=== PATIENT | female | born 1945 | race Caucasian/White ===

== ENCOUNTER 2017-04-29 13:35 | Inpatient (IN) | payer MEDICARE, MEDICAID ==
[~2017-04-29] VITALS: Ht 142.2 cm; Wt 85.7 kg
[2017-04-29] VITALS (7 sets, daily range): BP systolic 137–177; BP diastolic 44–88
--- NOTE | ~2017-04-29 | CON ---
[place], [place] REPORT OF CONSULTATION NAME: HALINA CORTES UNIT #: [id number] ROOM: 415 DOCTOR: GHADA BARBOZAMANASGIOVANNY BIRTHDATE: [birth year] DOS: 04/30/2017 REQUESTING PHYSICIAN: Dr. Bazzi. REASON FOR CONSULTATION: Atrial fibrillation. ASSESSMENT: 1. Current presentation with shortness of breath. 2. New-onset paroxysmal atrial fibrillation. 3. Evidence of right lower lobe pneumonia. 4. Sepsis, elevated white count. 5. Morbid obesity with probable obstructive sleep apnea. 6. Hypertension. 7. Hyperlipidemia. 8. Diabetes. 9. History of coronary artery disease, status post PTCA stent placement in 2009 at [facility]. 10. The patient with dementia/Alzheimer, most of the history was taken from her daughter, Denise (the patient's granddaughter was also present at the time of this exam). 11. History of severe chronic obstructive pulmonary disease with the patient is oxygen dependent. 12. Active tobacco abuse. PLAN: 1. Cycle cardiac enzymes. 2. Check thyroid function test. 3. Echocardiogram. 4. Sop Plavix and initiate Xarelto. 5. Stop Lovenox. 6. Cardizem-CD 120 mg 1 tablet p.o. b.i.d. 7. Multaq 400 mg 1 tab p.o. b.i.d. 8. Ischemic evaluation will be considered later on as an outpatient. 9. Consider sleep study. 10. Smoking cessation. HISTORY AND PHYSICAL: The patient is a pleasant 71-year-old female, unknown to our practice, was referred by Dr. Bazzi for evaluation of shortness of breath, cough, fever, and chills. On presentation, the patient was found out to have a right lower lobe pneumonia, initiated for treatment with antibiotic. The patient according to her daughter who is an [employer] was noticed that she was going back and forth in atrial fibrillation and this was documented today on the monitor. Never had any symptomatic palpitation or any associated dizziness, lightheadedness, or near syncope. The patient is demented with Alzheimer, with no reliability for her complaints, even though it was never reported such as. The patient is almost completely bedridden. She is morbidly obese, with COPD and oxygen dependent. There is no complaint of chest pain, chest pressure, heaviness or tightness. Her functional capacity is extremely limited. There is no evidence of volume overload. No fever, no chills, no night sweats were reported. Decreased appetite, cough, slightly productive of yellowish sputum. [place], [place] REPORT OF CONSULTATION NAME: HALINA CORTES UNIT #: [id number] ROOM: [facility] DOCTOR: KELLY URRUTIA MD BIRTHDATE: [birth year] No significant weight change recently. PAST MEDICAL HISTORY: As detailed in my assessment. SOCIAL HISTORY: The patient continued to smoke, has been doing this since her teenage years. No current alcohol or illicit drug abuse. FAMILY HISTORY: Not applicable in view of patient's age. CURRENT MEDICATIONS: Levo, Cardizem drip, insulin, vitamin D, nitrofurantoin, Lisinopril, Victoza, Lovenox, Plavix, Celexa, Lipitor, Glucophage, Protonix, Aricept, Os-Tony, DuoNeb, Restoril, Zofran, magnesium, [place]. ALLERGIES: The patient is allergic to SULFA. REVIEW OF SYSTEMS: Done in the presence of the patient's daughter and granddaughter. There is no current fever, chills, no night sweats. No abdominal pain, no bright blood per rectum or tarry stools. Present joint pain and muscular pain. No anxiety, no depression. No polyuria, no polydipsia, no skin rash. Review of all other systems has been negative. PHYSICAL EXAMINATION: GENERAL: The patient is alert, oriented, sitting up in a recliner chair, does not appear in distress, slightly tachypneic, coughs off and on. VITAL SIGNS: Blood pressure 121/52, heart rate 58, respiration rate of 20, temperature 97.5. HEENT: Extraocular muscles intact. Pupils equal, round, reactive to light. Conjunctivae mild pallor. Throat: No petechiae. NECK: Good upstroke. Unable to appreciate any bruit, no lymphadenopathy, no thyromegaly. HEART: S1, S2 with holosystolic murmur in the left upper sternal border. No rub, no sternal heave. CHEST AND BACK: Significant decrease in air movement with decreased breath sounds at the base bilaterally, more so on the left than the right. Minimal rhonchi could be heard also in the left lower base. No natacha wheezing. ABDOMEN: Soft, slight periumbilical tenderness. No rebound, no masses, no bruits were appreciated. LOWER EXTREMITIES: There is no edema. Faint distal pulses. NEUROLOGIC: Grossly nonfocal. SKIN: No significant rash. LABORATORY DATA: White count 13.1, 89% neutrophils, hemoglobin 12.0. Potassium 3.9. GFR more than 60%. Normal liver function tests. Troponin is 0.041 and 0.043. Slightly decreased TSH to 0.351 and normal free T4. [place], [place] REPORT OF CONSULTATION NAME: HALINA CORTES UNIT #: [id number] ROOM: 415 DOCTOR: KELLY URRUTIA MD BIRTHDATE: [birth year] KELLY URRUTIA MD CM:CONSTR:REPORT OF CONSULTATION 1200 04/30/17 1357 interface
--- NOTE | ~2017-04-29 | PR ---
[place], [place] PROGRESS NOTE [id number] UNIT #: [id number] ROOM: 415 DOCTOR: KELLY URRUTIA MD BIRTHDATE: [birth year] DOS: 05/01/2017 SUBJECTIVE: The patient is sitting up in bed, almost completely flat. Does not appear in any distress. No chest pain. No symptomatic palpitation. OBJECTIVE: VITAL SIGNS: Blood pressure 143/48, heart rate 93, respiratory rate of 20, temperature 98.2. NECK: Good upstroke, no bruit. HEART: S1, S2 with no rub. LUNGS: Significant decreased air movement, but no natacha wheezing or rales. ABDOMEN: Morbidly obese, soft, nontender, present bowel sounds. EXTREMITIES: Lower extremities, no edema. LABORATORY DATA: White count 18.2, 20% lymphocytes, hemoglobin 11.4. Potassium 3.9, glucose 268. GFR more than 60%. Normal liver function tests. TSH 0.351. ASSESSMENT AND PLAN: Presentation with shortness of breath, dyspnea on exertion with evidence of paroxysmal atrial fibrillation. The patient is showing some element of profound bradycardia for that we will decrease Cardizem CD to 120 mg once a day. For now, we will continue Multaq and Xarelto. The patient from the Cardiology, can be discharged home with early followup in our clinic within 2-4 weeks. We will consider ischemic workup as an outpatient. The patient though is elderly, frail with advanced dementia and possible Alzheimer, for that a conservative management will be preferred. KELLY URRUTIA MD CM:PNTRANS [id number] KELLY URRUTIA MD 05/02/17 0319 interface
[~2017-04-29 13:35] MED LIST: ASPIR-TRIN325 MG PO; ATIVAN0.5 MG PO; CELEBREX200 MG PO; CIPROFLOXACIN500 MG PO; CITALOPRAM40 MG PO; CLOPIDOGREL BIS75 MG PO; DARVOCET N 1001 TAB PO; DAYPRO600 M1 PO; LASIX40 MG PO; LISINOPRIL/HCTZ1 TA4 PO; LISINOPRIL5 MG PO; Oscal,Oyster S500 MG PO; SIMVASTATIN40 MG PO; SINGULAIR10 MG PO; SYMBICORT1 AE1 IH; TUSSIN100 MG/5 M; VICODIN 500 MG-1 TAB PO; VITAMIN D31000 UNIT PO; ZOVIRAX800 MG PO
[2017-04-29 14:45] LABS: HEMATOCRIT 41.6 % (37.0-47.0); HEMOGLOBIN 13.1 g/dl (12.0-16.0); MEAN CELL VOLUME 87.6 fl (81.0-99.0); MEAN CORPUSCULAR HGB 27.6 pg (27.0-31.0); MEAN CORPUSCULAR HGB CONC 31.5 g/dl (33.0-37.0); MEAN PLATELET VOLUME 10.1 fl (9.6-12.3); PLATELET COUNT AUTOMATED 273 10*3/uL (130-400); RED BLOOD COUNT 4.75 10*6/uL (4.10-5.10); RED CELL DISTRI WIDTH 13.2 % (0-14.5); WHITE BLOOD COUNT 18.8 10*3/uL (4.8-10.8)
[2017-04-29 15:02] LABS: ALBUMIN 2.8 gm/dl (3.1-4.5); ALKALINE PHOSPHATASE 97 U/L (45-117); BILIRUBIN, TOTAL 0.4 mg/dl (0.2-1.0); BUN 18 mg/dl (7-24); CARBON DIOXIDE 30 mmol/L (21-32); CHLORIDE 99 mmol/L (98-107); CPK 161 U/L (26-192); EST GLOM FILT AFRICAN AMERICAN > 60 ml/min; GLUCOSE 149 mg/dL (65-99); LDH 154 U/L (84-246); MAGNESIUM 1.7 mg/dL (1.5-2.1); POTASSIUM 3.9 mmol/L (3.5-5.1); SGOT/AST 17 IU/L (3-35); SGPT/ALT 17 U/L (12-78); SODIUM 138 mmol/L (136-145); TOTAL PROTEIN 6.9 gm/dL (6.4-8.2)
[2017-04-29 15:03] LABS: CKMB 2.6 ng/ml (0.5-3.6)
[2017-04-29 15:07] LABS: LYMPHOCYTE # 3.4 10*3/uL (1.3-4.4); MONOCYTE # 2.1 10*3/uL (0.1-1.0); NEUTROPHIL # 13.3 10*3/uL (2.3-7.9); NEUTROPHILS 71 % (47-73); PLATELET SUFFICIENCY NORMAL (NORMAL); POLYCHROMASIA SLIGHT; TOTAL CELLS COUNTED 100 #CELLS
[2017-04-29] MEDS ORDERED: MACRODANTIN50 MG PO (17:20)
[2017-04-29] MEDS ORDERED: METFORMIN500 MG PO (17:21)
[2017-04-29] MEDS ORDERED: ARICEPT10 M1 PO (17:23)
[2017-04-29] MEDS ORDERED: BREO ELLIPTA 11 EACH INH (17:24)
[2017-04-29] MEDS ORDERED: ATORVASTATIN CA10 M1 PO (17:25)
[2017-04-29] MEDS ORDERED: ALBUTEROL S5 MG/1 ML INH (17:26)
[2017-04-29] MEDS ORDERED: PRINIVIL10 MG PO (17:27)
[2017-04-29] MEDS ORDERED: VICTOZA 3-PAK6 MG/ML SQ (17:27)
[2017-04-29] MEDS ORDERED: MAPAP EXTRA ST500 MG PO (17:28)
[2017-04-30] VITALS (7 sets, daily range): BP systolic 121–149; BP diastolic 49–74
[2017-04-30 05:51] LABS: BASO % 0.2 % (0.0-1.0); IG # 0.1 10*3/uL (0.0-0.1); LYMPH # 0.9 10*3/uL (1.3-4.4); LYMPH % 6.6 % (27.0-41.0); MEAN CELL VOLUME 88.2 fl (81.0-99.0); MEAN CORPUSCULAR HGB 27.8 pg (27.0-31.0); MEAN CORPUSCULAR HGB CONC 31.6 g/dl (33.0-37.0); MEAN PLATELET VOLUME 10.5 fl (9.6-12.3); MONO # 0.4 10*3/uL (0.1-1.0); MONO % 3.1 % (3.0-9.0); NEUT # 11.7 10*3/uL (2.3-7.9); NEUT % 89.6 % (47.0-73.0); PLATELET COUNT AUTOMATED 262 10*3/uL (130-400); RED BLOOD COUNT 4.31 10*6/uL (4.10-5.10); RED CELL DISTRI WIDTH 13.2 % (0-14.5); WHITE BLOOD COUNT 13.1 10*3/uL (4.8-10.8)
[2017-04-30 05:55] LABS: ALBUMIN 2.4 gm/dl (3.1-4.5); BILIRUBIN, TOTAL 0.2 mg/dl (0.2-1.0); BUN 23 mg/dl (7-24); CARBON DIOXIDE 27 mmol/L (21-32); CHLORIDE 103 mmol/L (98-107); GLUCOSE 268 mg/dL (65-99); MAGNESIUM 1.9 mg/dL (1.5-2.1); POTASSIUM 3.9 mmol/L (3.5-5.1); SODIUM 139 mmol/L (136-145); TOTAL PROTEIN 6.4 gm/dL (6.4-8.2)
[2017-04-30 06:02] LABS: ALKALINE PHOSPHATASE 92 U/L (45-117); EST GLOM FILT AFRICAN AMERICAN > 60 ml/min; FREE T4 1.33 ng/dl (0.76-1.46); PHOSPHOROUS 2.5 mg/dL (2.5-4.9); SGOT/AST 16 IU/L (3-35); SGPT/ALT 15 U/L (12-78); THYROID STIM HORMONE (HS) 0.351 uIU/ml (0.358-4.75)
[2017-04-30 06:21] LABS: PROTHROMBIN TIME 10.9 SECONDS (9.0-12.4)
[2017-04-30 13:05] LABS: VITAMIN D, 25-HYDROXY 46.9 ng/mL (30-100)
[2017-04-30 13:06] LABS: FOLIC ACID 6.92 ng/mL (>5.38)
[2017-04-30 14:26] LABS: BILIRUBIN NEGATIVE (NEGATIVE); BLOOD NEGATIVE (NEGATIVE); CLARITY CLEAR (CLEAR); COLOR YELLOW (YELLOW); GLUCOSE NEGATIVE (NEGATIVE); KETONE NEGATIVE (NEGATIVE); LEUKO ESTERASE NEGATIVE (NEGATIVE); NITRITE NEGATIVE (NEGATIVE); PROTEIN 1+ (NEGATIVE); SPECIFIC GRAVITY >= 1.030 (1.005-1.030)
[2017-04-30 14:44] LABS: BACTERIA 1+
[2017-04-30 14:45] LABS: URINE REFLEX COMMENT NO (NO)
[2017-05-01] VITALS: BP 131/64
[2017-05-01 06:12] LABS: HEMATOCRIT 37.5 % (37.0-47.0); HEMOGLOBIN 11.4 g/dl (12.0-16.0); MEAN CELL VOLUME 90.6 fl (81.0-99.0); MEAN CORPUSCULAR HGB 27.5 pg (27.0-31.0); MEAN CORPUSCULAR HGB CONC 30.4 g/dl (33.0-37.0); MEAN PLATELET VOLUME 10.2 fl (9.6-12.3); PLATELET COUNT AUTOMATED 295 10*3/uL (130-400); RED BLOOD COUNT 4.14 10*6/uL (4.10-5.10); RED CELL DISTRI WIDTH 13.5 % (0-14.5); WHITE BLOOD COUNT 18.2 10*3/uL (4.8-10.8)
[2017-05-01 06:38] LABS: LYMPHOCYTE # 3.6 10*3/uL (1.3-4.4); MONOCYTE # 1.1 10*3/uL (0.1-1.0); NEUTROPHIL # 13.5 10*3/uL (2.3-7.9); NEUTROPHILS 74 % (47-73); PLATELET SUFFICIENCY NORMAL (NORMAL); TOTAL CELLS COUNTED 100 #CELLS
[2017-05-01 08:00] VITALS: BP 143/48
[2017-05-01 12:00] VITALS: BP 154/64
[2017-05-01] MEDS ORDERED: LEVAQUIN750 M1 PO (12:15)
[2017-05-01] MEDS ORDERED: CARDIZEM CD120 M2 PO (12:15)
[2017-05-01] MEDS ORDERED: MULTAQ400 MG PO (12:15)
[2017-05-01] MEDS ORDERED: XARE20MG PO (12:15)
[2017-05-01] MEDS ORDERED: PREDNISONE50 MG PO (12:15)
[2017-05-03 18:05] LABS: ORGANISM ID Not indicated. (.); SPECIMEN SOURCE Urine (.); STREPTOCOCCUS PNEUMONIAE AG Negative (Negative)
== END 2017-05-01 14:31 | disposition home health service (06) | DRG 871 ==
LOC: ED 13:35 → 4E 16:00 → EDHOLD 16:00 → 4E 17:00
PROVIDERS: Internal Medicine Hospice and Palliative Medicine; Physician Assistant; Student in an Organized Health Care Education/Training Program
DX: A41.9 Sepsis, unspecified organism (principal); E43 Unspecified severe protein-calorie malnutrition; J18.1 Lobar pneumonia, unspecified organism; E11.65 Type 2 diabetes mellitus with hyperglycemia; D68.69 Other thrombophilia; J96.11 Chronic respiratory failure with hypoxia; J44.0 Chronic obstructive pulmonary disease with (acute) lower respiratory infection; N39.0 Urinary tract infection, site not specified; Z68.41 Body mass index [BMI] 40.0-44.9, adult; G30.9 Alzheimer's disease, unspecified; F02.80 Dementia in other diseases classified elsewhere, unspecified severity, without behavioral disturbance, psychotic disturbance, mood disturbance, and anxiety; R65.20 Severe sepsis without septic shock; I10 Essential (primary) hypertension; G47.33 Obstructive sleep apnea (adult) (pediatric); F41.9 Anxiety disorder, unspecified; I25.10 Atherosclerotic heart disease of native coronary artery without angina pectoris; E66.01 Morbid (severe) obesity due to excess calories; E78.5 Hyperlipidemia, unspecified; I48.0 Paroxysmal atrial fibrillation; F17.210 Nicotine dependence, cigarettes, uncomplicated; F32.9 Major depressive disorder, single episode, unspecified; R00.1 Bradycardia, unspecified; Z99.81 Dependence on supplemental oxygen; Z71.6 Tobacco abuse counseling; Z95.5 Presence of coronary angioplasty implant and graft; Z74.01 Bed confinement status; Z90.49 Acquired absence of other specified parts of digestive tract; Z88.2 Allergy status to sulfonamides; Z91.018 Allergy to other foods; Z82.49 Family history of ischemic heart disease and other diseases of the circulatory system; Z83.3 Family history of diabetes mellitus; Z82.3 Family history of stroke; Z80.3 Family history of malignant neoplasm of breast

== ENCOUNTER 2017-05-12 13:25 | Inpatient (IN) | payer MEDICARE, MEDICAID ==
[~2017-05-12] VITALS: Ht 121.9 cm; Wt 78.2 kg
[2017-05-12 13:25] VITALS: BP 113/51
[~2017-05-12 13:25] MED LIST changes: +ALBUTEROL S5 MG/1 ML INH; +ARICEPT10 M1 PO; +ATORVASTATIN CA10 M1 PO; +BREO ELLIPTA 11 EACH INH; +CARDIZEM CD120 M2 PO; +LEVAQUIN750 M1 PO; +MACRODANTIN50 MG PO; +MAPAP EXTRA ST500 MG PO; +METFORMIN500 MG PO; +MULTAQ400 MG PO; +PREDNISONE50 MG PO; +PRINIVIL10 MG PO; +VICTOZA 3-PAK6 MG/ML SQ; +XARE20MG PO
[2017-05-12 14:13] VITALS: BP 131/63
[2017-05-12 14:50] LABS: BASO % 0.2 % (0.0-1.0); EOS # 0.3 10*3/uL (0.0-0.4); EOS % 1.5 % (1.0-4.0); HEMATOCRIT 42.1 % (37.0-47.0); HEMOGLOBIN 13.1 g/dl (12.0-16.0); LYMPH # 3.6 10*3/uL (1.3-4.4); LYMPH % 20.4 % (27.0-41.0); MEAN CELL VOLUME 89.4 fl (81.0-99.0); MEAN CORPUSCULAR HGB 27.8 pg (27.0-31.0); MEAN CORPUSCULAR HGB CONC 31.1 g/dl (33.0-37.0); MEAN PLATELET VOLUME 9.5 fl (9.6-12.3); MONO # 1.2 10*3/uL (0.1-1.0); MONO % 7.1 % (3.0-9.0); NEUT # 12.2 10*3/uL (2.3-7.9); NEUT % 69.8 % (47.0-73.0); PLATELET COUNT AUTOMATED 303 10*3/uL (130-400); RED BLOOD COUNT 4.71 10*6/uL (4.10-5.10); RED CELL DISTRI WIDTH 14.4 % (0-14.5); WHITE BLOOD COUNT 17.4 10*3/uL (4.8-10.8)
[2017-05-12 15:00] LABS: ACT PARTIAL THROMBO TIME 30.3 SECONDS (20.8-31.5); INTERNATIONAL NORM RATIO 1.1 (2.0-3.5)
[2017-05-12 15:08] LABS: ALBUMIN 2.8 gm/dl (3.1-4.5); CREATININE 1.11 mg/dL (0.55-1.02); MAGNESIUM 2.2 mg/dL (1.5-2.1); POTASSIUM 4.8 mmol/L (3.5-5.1); TOTAL PROTEIN 5.9 gm/dL (6.4-8.2)
--- NOTE | 2017-05-12 15:09 | NUR ---
TO XRAY NOW FOR ULTRASOUND OF LEGS. REMAINS ALERT. OSKAR WILKINS
--- NOTE | 2017-05-12 15:44 | NUR ---
REPORT FROM ABIMAEL DURHAM RN AT THIS TIME.
--- NOTE | 2017-05-12 15:44 | NUR ---
PATIENT RETURNING FROM US AT THIS TIME.
[2017-05-12 17:32] VITALS: BP 132/42; BP 132/60
--- NOTE | 2017-05-12 17:34 | NUR ---
HERMINIO WILKINS TRANSPORTED PATIENT TO 4TH FLOOR AT THIS TIME.
[2017-05-12 17:50] VITALS: BP 164/62
--- NOTE | 2017-05-12 17:50 | NUR ---
A 71, admitted to , under the services of PATRICK Nelson DO with a diagnosis of BRADYCARDIA,RIGHT SIDED HEART FAILURE. Chief complaint is BLE EDEMA. Patient arrived via CART from ER. Monitor applied. Initial assessment completed. Vital signs taken and recorded. PATRICK NELSON DO notified of admission to the unit. Orders received. See assessment for past medical history, medications and allergies. Patient and/or family oriented to unit. [facility] visitation policy reviewed. Clothing/patient valuable form completed. RYAN YAN
[2017-05-12 18:00] VITALS: BP 164/62
--- NOTE | 2017-05-12 19:39 | NUR ---
NOTIFIED DR [facility] ANSWERING SERVICE OF NEW CONSULT FOR BRADYCARDIA AND RIGHT SIDED HEART FAILURE.
--- NOTE | 2017-05-12 19:46 | NUR ---
MED RECONCILIATION COMPLETE WITH MED LIST. MED LIST ON CHART.
[2017-05-12 20:00] VITALS: BP 162/59
[2017-05-13] VITALS: BP 129/83
--- NOTE | 2017-05-13 00:58 | NUR ---
PATIENT RESTING IN BED WITH EYES CLOSED. RESPS EASY AND REGULAR. DAUGHTER IN CHAIR AT BEDSIDE. BED IN LOWEST POSITION, BED ALARM ON, CALL LIGHT IN REACH
--- NOTE | 2017-05-13 02:54 | NUR ---
24 HR chart check completed.
[2017-05-13 06:59] LABS: HEMATOCRIT 40.2 % (37.0-47.0); HEMOGLOBIN 12.3 g/dl (12.0-16.0); MEAN CELL VOLUME 89.1 fl (81.0-99.0); MEAN CORPUSCULAR HGB 27.3 pg (27.0-31.0); MEAN CORPUSCULAR HGB CONC 30.6 g/dl (33.0-37.0); MEAN PLATELET VOLUME 9.5 fl (9.6-12.3); PLATELET COUNT AUTOMATED 287 10*3/uL (130-400); RED BLOOD COUNT 4.51 10*6/uL (4.10-5.10); RED CELL DISTRI WIDTH 14.3 % (0-14.5); WHITE BLOOD COUNT 11.3 10*3/uL (4.8-10.8)
[2017-05-13 07:28] LABS: ALBUMIN 2.7 gm/dl (3.1-4.5); ALKALINE PHOSPHATASE 68 U/L (45-117); CHLORIDE 103 mmol/L (98-107); CREATININE 0.93 mg/dL (0.55-1.02); MAGNESIUM 2.1 mg/dL (1.5-2.1); PHOSPHOROUS 2.8 mg/dL (2.5-4.9); PLATELET SUFFICIENCY NORMAL (NORMAL); POTASSIUM 4.9 mmol/L (3.5-5.1); SGOT/AST 14 IU/L (3-35); SGPT/ALT 18 U/L (12-78); SODIUM 141 mmol/L (136-145); TOTAL CELLS COUNTED 100 #CELLS; TOTAL PROTEIN 5.7 gm/dL (6.4-8.2)
[2017-05-13 07:31] LABS: ACT PARTIAL THROMBO TIME 35.5 SECONDS (20.8-31.5); INTERNATIONAL NORM RATIO 1.3 (2.0-3.5)
[2017-05-13 07:35] LABS: BUN 14 mg/dl (7-24); THYROID STIM HORMONE (HS) 0.472 uIU/ml (0.358-4.75)
[2017-05-13 08:00] VITALS: BP 136/72
[2017-05-13 08:09] LABS: VITAMIN D, 25-HYDROXY 61.1 ng/mL (30-100)
--- NOTE | 2017-05-13 09:14 | NUR ---
Advance Directive information given to patient. Daughter would like to review information and will get back to this social media developer.
--- NOTE | 2017-05-13 10:36 | NUR ---
PHYSICAL THERAPY PAtient requests PT at a later time or date. Thank you for this referral. Ayanna Overton,PT
[2017-05-13 12:00] VITALS: BP 102/83
--- NOTE | 2017-05-13 12:22 | NUR ---
PHYSICAL THERAPY PAtient evaluated on 4, full evaluation to follow. Continue with PT as per plan of care with fall, 02 and acute debility precautions. Home with 12/04 family assit as prior and home health RN, aides and PT prn. PAtient is moderate complexity via chart review, tests and evaluation: 41991. Thank you for this freferral. karen Overton,PT
[2017-05-13 16:00] VITALS: BP 118/46
[2017-05-13 20:00] VITALS: BP 120/55
[2017-05-14] VITALS: BP 135/50
--- NOTE | 2017-05-14 01:00 | NUR ---
24 HR chart check completed.
[2017-05-14 07:30] LABS: HEMATOCRIT 35.9 % (37.0-47.0); HEMOGLOBIN 11.2 g/dl (12.0-16.0); MEAN CELL VOLUME 89.3 fl (81.0-99.0); MEAN CORPUSCULAR HGB 27.9 pg (27.0-31.0); MEAN CORPUSCULAR HGB CONC 31.2 g/dl (33.0-37.0); MEAN PLATELET VOLUME 9.7 fl (9.6-12.3); PLATELET COUNT AUTOMATED 254 10*3/uL (130-400); RED BLOOD COUNT 4.02 10*6/uL (4.10-5.10); RED CELL DISTRI WIDTH 14.6 % (0-14.5); WHITE BLOOD COUNT 20.3 10*3/uL (4.8-10.8)
[2017-05-14 07:55] LABS: BUN 20 mg/dl (7-24); CHLORIDE 99 mmol/L (98-107); CREATININE 0.98 mg/dL (0.55-1.02); PLATELET SUFFICIENCY NORMAL (NORMAL); SODIUM 138 mmol/L (136-145); TOTAL CELLS COUNTED 100 #CELLS
[2017-05-14 08:00] VITALS: BP 102/60
--- NOTE | 2017-05-14 10:13 | NUR ---
PHYSICAL THERAPY Pt was seen this AM 1:1 for her therapy gait. Transfer supine/sit, sitting balance supervision X 1, sit/stand and standing balance with wheeled walker MIN A X 1. Then gait with W/W, portable o2 at 3 L, 165' X 1, CGA X 1, no LOB, did not get SOB with this gait and up in her chair for breakfast. LUNA HUGHES EVENT MGR.
[2017-05-14] MEDS ORDERED: KLOR-CON M1010 ME1 PO (10:14)
[2017-05-14] MEDS ORDERED: METOPROLOL SUCC25 M2 PO (10:14)
[2017-05-14] MEDS ORDERED: DOXYCYCLINE100 M3 PO (10:14)
[2017-05-14] MEDS ORDERED: LASIX20 MG PO (10:14)
[2017-05-14] MEDS ORDERED: PREDNISONE10 MG PO (10:14)
--- NOTE | 2017-05-14 13:20 | NUR ---
DISCHARGED HOMEAFTER INSTRUCTIONS GIVEN
--- NOTE | 2017-05-14 14:16 | NUR ---
Patient discharged to home to resume [facility]. Contacted Dr. Murali Martinez and requested resume order, faxed clincals.
--- NOTE | 2017-05-17 08:10 | NUR ---
PHYSICAL THERAPY CO-SIGN I approve of the Phyical Therapy notes written above. MICHAEL LEDESMA PT
== END 2017-05-14 13:20 | disposition home health service (06) | DRG 291 ==
LOC: ED 13:25 → EDHOLD 16:56 → 4E 16:56
PROVIDERS: Emergency Medicine; Internal Medicine; ADMIT Internal Medicine
DX: I13.0 Hypertensive heart and chronic kidney disease with heart failure and stage 1 through stage 4 chronic kidney disease, or unspecified chronic kidney disease (principal); G93.40 Encephalopathy, unspecified; J96.11 Chronic respiratory failure with hypoxia; E44.0 Moderate protein-calorie malnutrition; J96.12 Chronic respiratory failure with hypercapnia; R00.1 Bradycardia, unspecified; I48.0 Paroxysmal atrial fibrillation; Z99.81 Dependence on supplemental oxygen; E11.22 Type 2 diabetes mellitus with diabetic chronic kidney disease; J44.1 Chronic obstructive pulmonary disease with (acute) exacerbation; I50.31 Acute diastolic (congestive) heart failure; E66.01 Morbid (severe) obesity due to excess calories; F32.9 Major depressive disorder, single episode, unspecified; D72.829 Elevated white blood cell count, unspecified; N18.3 Chronic kidney disease, stage 3 (moderate); T38.0X5A Adverse effect of glucocorticoids and synthetic analogues, initial encounter; G47.33 Obstructive sleep apnea (adult) (pediatric); F41.9 Anxiety disorder, unspecified; F17.210 Nicotine dependence, cigarettes, uncomplicated; G30.9 Alzheimer's disease, unspecified; F02.80 Dementia in other diseases classified elsewhere, unspecified severity, without behavioral disturbance, psychotic disturbance, mood disturbance, and anxiety; I25.10 Atherosclerotic heart disease of native coronary artery without angina pectoris; Z90.710 Acquired absence of both cervix and uterus; Z95.5 Presence of coronary angioplasty implant and graft; Z82.3 Family history of stroke; Z80.3 Family history of malignant neoplasm of breast; Z82.49 Family history of ischemic heart disease and other diseases of the circulatory system; Z83.3 Family history of diabetes mellitus; Z79.1 Long term (current) use of non-steroidal anti-inflammatories (NSAID); Z79.82 Long term (current) use of aspirin; Z79.84 Long term (current) use of oral hypoglycemic drugs; Z79.899 Other long term (current) drug therapy; Z79.51 Long term (current) use of inhaled steroids; Z88.2 Allergy status to sulfonamides; Y92.89 Other specified places as the place of occurrence of the external cause; Z68.27 Body mass index [BMI] 27.0-27.9, adult; Z87.01 Personal history of pneumonia (recurrent)

== ENCOUNTER → 2017-06-01 | Outpatient (CLI) | payer MEDICARE, MEDICAID ==
[~2017-06-01] MED LIST changes: +DOXYCYCLINE100 M3 PO; +KLOR-CON M1010 ME1 PO; +LASIX20 MG PO; +METOPROLOL SUCC25 M2 PO; +PREDNISONE10 MG PO
== END | disposition home or self-care (01) ==
LOC: RESCLI 03:17
DX: Z09 Encounter for follow-up examination after completed treatment for conditions other than malignant neoplasm (principal); E11.65 Type 2 diabetes mellitus with hyperglycemia; J01.00 Acute maxillary sinusitis, unspecified; J44.9 Chronic obstructive pulmonary disease, unspecified; F41.9 Anxiety disorder, unspecified; F03.90 Unspecified dementia, unspecified severity, without behavioral disturbance, psychotic disturbance, mood disturbance, and anxiety; M15.9 Polyosteoarthritis, unspecified; E55.9 Vitamin D deficiency, unspecified; I48.0 Paroxysmal atrial fibrillation; I11.0 Hypertensive heart disease with heart failure; I50.32 Chronic diastolic (congestive) heart failure; E66.09 Other obesity due to excess calories; Z76.89 Persons encountering health services in other specified circumstances

== ENCOUNTER 2017-06-03 12:06 | Emergency (ER) | payer MEDICARE, MEDICAID ==
[~2017-06-03] VITALS: Ht 147.3 cm; Wt 68.0 kg
[2017-06-03 12:59] LABS: BASO % 0.3 % (0.0-1.0); EOS # 0.2 10*3/uL (0.0-0.4); EOS % 1.5 % (1.0-4.0); HEMATOCRIT 42.8 % (37.0-47.0); HEMOGLOBIN 13.2 g/dl (12.0-16.0); LYMPH # 2.8 10*3/uL (1.3-4.4); LYMPH % 23.6 % (27.0-41.0); MEAN CELL VOLUME 90.3 fl (81.0-99.0); MEAN CORPUSCULAR HGB 27.8 pg (27.0-31.0); MEAN CORPUSCULAR HGB CONC 30.8 g/dl (33.0-37.0); MEAN PLATELET VOLUME 9.6 fl (9.6-12.3); MONO # 0.8 10*3/uL (0.1-1.0); NEUT # 7.8 10*3/uL (2.3-7.9); NEUT % 66.7 % (47.0-73.0); PLATELET COUNT AUTOMATED 206 10*3/uL (130-400); RED BLOOD COUNT 4.74 10*6/uL (4.10-5.10); RED CELL DISTRI WIDTH 15.7 % (0-14.5); WHITE BLOOD COUNT 11.7 10*3/uL (4.8-10.8)
[2017-06-03 13:18] LABS: ALBUMIN 2.9 gm/dl (3.1-4.5); CREATININE 1.1 mg/dL (0.55-1.02); POTASSIUM 4.5 mmol/L (3.5-5.1); TOTAL PROTEIN 6.1 gm/dL (6.4-8.2)
[2017-06-03 13:19] LABS: TROPONIN I 0.029 ng/ml (<0.045)
[2017-06-03 14:36] LABS: BILIRUBIN 1+ (NEGATIVE); BLOOD NEGATIVE (NEGATIVE); CLARITY SL CLOUDY (CLEAR); COLOR YELLOW (YELLOW); GLUCOSE NEGATIVE (NEGATIVE); KETONE TRACE (NEGATIVE); LEUKO ESTERASE NEGATIVE (NEGATIVE); NITRITE NEGATIVE (NEGATIVE); SPECIFIC GRAVITY 1.015 (1.005-1.030); UROBILINOGEN 0.2 E.U./dl (0.2-1.0)
[2017-06-03 14:52] LABS: RBC 0-2 rbc/hpf (0-2)
[2017-06-03 15:44] VITALS: BP 124/82
== END 2017-06-03 16:57 | disposition home or self-care (01) ==
LOC: ED 12:06
PROVIDERS: Family Medicine Adult Medicine
DX: Z01.30 Encounter for examination of blood pressure without abnormal findings (principal); I12.9 Hypertensive chronic kidney disease with stage 1 through stage 4 chronic kidney disease, or unspecified chronic kidney disease; E11.22 Type 2 diabetes mellitus with diabetic chronic kidney disease; N18.3 Chronic kidney disease, stage 3 (moderate); I25.10 Atherosclerotic heart disease of native coronary artery without angina pectoris; J44.9 Chronic obstructive pulmonary disease, unspecified; E78.5 Hyperlipidemia, unspecified; E66.01 Morbid (severe) obesity due to excess calories; G47.33 Obstructive sleep apnea (adult) (pediatric); F17.200 Nicotine dependence, unspecified, uncomplicated; Z99.81 Dependence on supplemental oxygen; Z90.710 Acquired absence of both cervix and uterus; Z95.5 Presence of coronary angioplasty implant and graft; Z79.82 Long term (current) use of aspirin; Z79.899 Other long term (current) drug therapy; Z88.2 Allergy status to sulfonamides

== ENCOUNTER 2017-06-08 11:00 | Inpatient (IN) | payer MEDICARE, MEDICAID ==
[~2017-06-08] VITALS: Ht 149.8 cm; Wt 75.1 kg
--- NOTE | ~2017-06-08 | CON ---
[place], [place] REPORT OF CONSULTATION NAME: HALINA CORTES [facility] #: [id number] UNIT #: [id number] ROOM: 518 DOCTOR: VICTOR MANUEL MARTINEZ MDAUGUSTO BIRTHDATE: [birth year] DOS: 06/09/2017 The consultation is requested by the hospitalist services for the assessment of COPD for the patient's respiratory failure. The patient was seen today with [id number] encounter, history was taken from the patient personally and physical examination was performed. All the laboratory data was reviewed including radiology data. The assessment of the patient for current problem personally made for this patient for recommendation of change in management was recommended for this patient for today's consultation by myself. The note done by the medical attendant was approved. HISTORY OF PRESENT ILLNESS: A 71-year-old white female who has been known with history of COPD as well as chronic hypoxic respiratory failure, using oxygen supplementation 4 liters nasal cannula. The patient was seen in the Resident Clinic. She has been noted with acute bronchitis, started on doxycycline as an outpatient. The symptoms of the patient has been noted progressive increased coughing with sputum expectoration yellowish in color, not responding to the outpatient treatment. She also developed wheezing and increased shortness of breath, was described. She has been admitted to the hospital for further medical management. The symptoms started a couple of weeks ago. The patient's history was noted limited due to the patient's inability to understand the question and answer the questions accurately ____ history. REVIEW OF SYSTEMS: Completed limited per the medical attendant. PAST MEDICAL HISTORY: Known with generalized anxiety disorder, dementia, coronary artery disease, COPD, chronic hypoxic respiratory failure, type 2 diabetes mellitus, essential hypertension, partial seizure and loss, hypercoagulable status, details unknown, atrial fibrillation, obstructive sleep apnea disorder, obesity, heart failure, unknown systolic or diastolic dysfunction. PAST SURGICAL HISTORY: Reported as hysterectomy, coronary artery stents insertion with cardiac catheterization and tobacco use was noted with history of tobacco use. SOCIAL HISTORY: The patient was younger age, a pack of cigarettes per day active use. There was no history of alcohol use or any illicit drugs reported. FAMILY HISTORY: Reported for CVA, coronary artery disease in the father and breast cancer metastasis in the mother. DRUG ALLERGIES: Noted TO SULFA DRUG ALLERGIES. MEDICATIONS: The current administered medications were recorded as use of nicotine replacement patches, Xarelto, citalopram, metoprolol succinate, potassium chloride, aspirin, Lipitor, Multaq 400 mg b.i.d., ____, Mucinex, IV Solu-Medrol 40 mg b.i.d., Claritin-D, DuoNeb, Levaquin, and other medications p.r.n., use. [place], [place] REPORT OF CONSULTATION NAME: HALINA CORTES UNIT #: [id number] ROOM: 518 DOCTOR: VICTOR MANUEL MARTINEZ MD,[place] BIRTHDATE: [birth year] DRUG ALLERGIES: Noted as allergy to SULFA DRUGS. PHYSICAL EXAMINATION: GENERAL: A 71-year-old female who was noted somewhat hard of hearing, difficult to understand the answers and understanding the questions without any distress at this time, using oxygen supplementation nasal cannula. VITAL SIGNS: Height recorded as 4 feet 11 inches, weight 165 pounds, BMI 33.4 by the nursing staff. VITAL SIGNS: Normal temperature since admission, respiratory rate 20-22, heart rate 67-68, blood pressure 154/50-123/43. The pulse oxygen saturation on 3 liters nasal cannula 95% saturation recorded. HEENT: Shows mild senile hearing loss. Head was atraumatic. Eyes nonicterus. Moderate obesity. NECK: Supple. CARDIOVASCULAR: S1, S2 is audible. LUNGS: The patient was noted without any crackles. Expiratory wheezing noted in the lungs bilaterally. ABDOMEN: Soft, obese, nontender. EXTREMITIES: Show chronic obesity. LABORATORY AND DIAGNOSTIC DATA: Reviewed shows CBC on 06/07/2017 WBC count 12.2, remaining CBC was normal. CMP on 06/07/2017, BUN 21, creatinine 1.13. CO2 of 34, remaining CMP normal. Arterial blood gas on 06/08/2017 pH of 7.39, pCO2 of 51, pO2 of 54 on room air. The CBC of the patient 06/08/2017, WBC count 10.9, remaining CBC normal. PT/PTT on 06/08/2017 was normal. The troponin 0.29 on 06/08/2017. The lactic acid 2.2 on 06/08/2017. CBC of 06/09/2017, hemoglobin 11.1, hematocrit 35.5, platelet counts were normal, WBC count normal. BMP this morning, glucose 277, BUN of 23, creatinine 1.06. The phosphorus 2.3. Remaining electrolytes normal. PT/PTT repeated again normal. Renal ultrasound was completed this morning described as a simple right renal cyst noted otherwise unremarkable. Single-view chest x-ray done on 06/08/2017 does not show any acute abnormalities. CT scan of the chest was also completed without contrast on 05/29/2017 that was personally reviewed shows review of the lung parenchymal window for the patient was initially done for the patient personally reviewed from the back images. There was no discrete areas of pulmonary fibrosis, any nodules or changes of centrilobular emphysema. Small subsegmental atelectasis noted in the area of the right middle lobe with possibility of some scarring would be considered. The lower lobe, both sides, were noted without any acute abnormalities. Small patchy infiltration noted in the subpleural area on the right lobe as well. Review of the mediastinal limited view because of lack of intravenous contrast shows a mediastinal fat a normal finding with nonspecific lymph node enlargement, most likely nonpathological in origin. IMPRESSION: 1. The patient who has been currently admitted to the hospital noted with worsening of the respiratory failure. 2. Worsening of the acute respiratory symptoms with acute exacerbation of COPD, history of chronic hypoxic respiratory failure. 3. Chronic hypercapnia secondary to underlying chronic obstructive pulmonary disease as well. [place], [place] REPORT OF CONSULTATION NAME: HALINA CORTES UNIT #: [id number] ROOM: 518 DOCTOR: [facility] BIR[facility]: [birth year] 4. The patient with subsegmental atelectasis suspicious mucus impaction of the right middle lobe subsegment will be considered. 5. Possibility of small patchy pneumonia, right upper lung and not aspiration from gram-positive organisms would be considered. 6. History of chronic moderate obesity. 7. Chronic nicotine dependence. PLAN OF MANAGEMENT: Use of nicotine replacement patches for this patient to overcome any nicotine withdrawal. Continue current dose of Solu-Medrol in addition of the flutter valve to impregnator and drier helper the secretion 8 with this patient secretion clearance. If necessary, consider bronchoscopy to help clear secretion from the endobronchial tree. Other supportive therapy, plan of management to be continued as well. Usual care, other supportive plan of care and therapies. Usual medical management. Additional treatment changes will be done based on progression of the illness. AUGUSTO RUSH MD CM:CONSTR:REPORT OF CONSULTATION 1434 06/10/17 0850 interface
--- NOTE | ~2017-06-08 | PR ---
[place], [place] PROGRESS NOTE NAME: HALINA CORTES [facility] #: [id number] UNIT #: [id number] ROOM: 518 DOCTOR: VICTOR MANUEL MARTINEZ MD,[place] BIRTHDATE: [birth year] DOS: 06/10/2017 PULMONARY FOLLOWUP SUBJECTIVE: The patient was independently seen and examined today. The history was confirmed. Physical examination performed. All the labs were reviewed. ASSESSMENT: For this patient was done for today's visit personally as well as the recommendation the patient were made for today's visit as well. Note done by the medical biller, was approved. The patient has shown progressive resolution and improvement in respiratory symptom at this time, which has been noted progressively. LABORATORY DATA: Culture of the sputum for the patient noted normal vickie preliminary. Blood culture from the showed no bacterial growth. PLAN OF TREATMENT: The patient could be discharged home today for further medical tapering dose of prednisone, antibiotics, bronchodilator. Absence of tobacco use was encouraged. She could be seen in the office for further followup visit, if she desires that. The note done by the medical biller was personally approved. AUGUSTO RUSH MD CM:PNTRANS [id number] AUGUSTO MARTINEZ MD 06/10/171929 interface
--- NOTE | ~2017-06-08 | EKG ---
[place], [place] ELECTROCARDIOGRAM REPORT NAME: HALINA CORTES UNIT #: [id number] ROOM: 518 DOCTOR: VICTOR MANUEL MARTINEZ MD,[place] BIRTHDATE: [birth year] DOS: 06/08/2017 ELECTROCARDIOGRAM TIME: 11:47 a.m. Normal sinus rhythm was noted with heart rate of 66 beats per minute. Nonspecific ST-T changes were noted in II, III, and aVF. AUGUSTO RUSH MD CM:EKGRPT:ELECTROCARDIOGRAM REPORT [id number] AUGUSTO MARTINEZ MD
--- NOTE | ~2017-06-08 | PR ---
[place], [place] PROGRESS NOTE NAME: HALINA CORTES UNIT #: [id number] ROOM: 518 DOCTOR: AIYANA ZELAYA DO BIRTHDATE: [birth year] DOS: 06/10/2017 SUBJECTIVE: The patient was seen and examined this morning with Dr. Rush. No fever, chills, nausea or vomiting. She says her breathing has been better and she feels better this morning. OBJECTIVE: VITAL SIGNS: Temperature 97.8, pulse 62, respirations 20, pulse ox 96, blood pressure 138/46. NECK: Supple. HEENT: No changes. CARDIOVASCULAR: S1, S2 audible. RESPIRATORY: Decreased breath sounds at the bases, improved compared to yesterday. LABORATORY DATA: White cell 10.6, hemoglobin 11.1, platelet 204, BUN 23, creatinine 1.06. Microbiology: Sputum culture and Gram stain final shows moderate gram-positive cocci in pairs, few gram-negative bacilli, many white cell count, few epithelial cell. Blood cultures to date are pending. IMAGING: Renal ultrasound done on 06/09/2017 showed simple 3.6 cm right renal cyst, otherwise unremarkable. No hydronephrosis. IMPRESSION: 1. Acute respiratory failure, resolved. 2. Acute exacerbation of chronic obstructive pulmonary disease with history of chronic hypoxic respiratory failure. 3. Chronic hypercapnia and underlying chronic obstructive pulmonary disease. 4. Subsegmental atelectasis. 5. Small patchy pneumonia, possibility versus right upper lobe lung and not aspiration from gram positive organism should be considered. 6. Chronic moderate obesity. 7. Chronic nicotine dependence. PLAN OF MANAGEMENT: 1. The patient has been placed on nicotine patch for nicotine withdrawal. 2. The patient can be discharged on Levaquin 500 mg daily and prednisone taper. 3. The patient should follow up in the office in 1-[address] Rush. 4. Supportive care of management. AIYANA ZELAYA DO [place], [place] PROGRESS NOTE NAME: HALINA CORTES UNIT #: [id number] ROOM: 518 DOCTOR: AIYANA ZELAYA DO BIRTHDATE: [birth year] AUGUSTO RUSH MD CM:PNRODRÍGUEZ 11 [phone] AIYANA ZELAYA DO 06/10/17 124 interface
--- NOTE | ~2017-06-08 | CON ---
[place], [place] REPORT OF CONSULTATION NAME: HALINA CORTES UNIT #: [id number] ROOM: 518 DOCTOR: AIYANA ZELAYA DO BIRTHDATE: [birth year] DOS: 06/09/2017 REASON FOR CONSULTATION: COPD exacerbation by the hospitalist service. CHIEF COMPLAINT: Shortness of breath. HISTORY OF PRESENT ILLNESS: This is a 71-year-old female who presents to [facility] with chief complaint of shortness of breath. The patient saw PCP, Dr. Anitha Vivas, in the [facility] due to her worsening shortness of breath and she was given doxycycline as an outpatient. The patient continued to have worsening of her cough and had yellow sputum production. The patient uses 3 liters of home oxygen continuously at home. The patient states she continued to have wheezing, shortness of breath with exertion, nausea and chills. The patient says that her shortness of breath has been going on for more than 2 weeks and she decided to come to the hospital. HPI is limited due to the patient's dementia. PAST MEDICAL HISTORY: 1. Alzheimer's disease. 2. Anxiety. 3. Coronary artery disease. 4. Chronic respiratory failure. 5. COPD. 6. Depression. 7. Diabetes mellitus. 8. Essential hypertension. 9. Hypercoagulable state. 10. Hyperlipidemia. 11. Morbid obesity. 12. Obstructive sleep apnea. 13. Paroxysmal AFib. 14. Right heart failure. 15. Severe protein calorie malnutrition. 16. Supplemental oxygen. 17. Vaginal enterocele. PAST SURGICAL PROBLEMS: 1. History of hysterectomy. 2. Stented coronary artery. SOCIAL HISTORY: The patient continues to smoke 1 pack per day for more than 35 years. The patient denies any drug or alcohol use. The patient lives at home with her son and [id number]. The patient states that she was never . FAMILY HISTORY: Significant for CVA, myocardial infarction in father and breast cancer and mets in mother. CODED ALLERGIES: SULFA. [place], [place] REPORT OF CONSULTATION NAME: HALINA CORTES UNIT #: [id number] ROOM: 518 DOCTOR: AIYANA ZELAYA DO BIRTHDATE: [birth year] HOME MEDICATIONS: Acetaminophen, albuterol, aspirin, atorvastatin, calcium carbonate, vitamin D, citalopram, Aricept, Lasix, Multaq, Victoza, Prinivil, Ativan, metformin, potassium chloride and Xarelto. REVIEW OF SYSTEMS: CONSTITUTIONAL: The patient reports chills. Denies fever, weight loss, weight gain. HEENT: The patient denies vision change, hearing loss, nasal discharge, ear discharge, ear pain, blurred vision, eye pain, mouth pain, swelling, congestion, nose pain, throat pain, throat swelling or dysphagia. CARDIOVASCULAR: The patient denies chest pain, palpitation, lower extremity edema or diaphoresis. RESPIRATORY: The patient reports shortness of breath, cough, wheezing, dyspnea on exertion, sputum production. Denies hemoptysis, paroxysmal nocturnal dyspnea, stridor. ABDOMEN: Reports nausea. Denies abdominal pain, vomiting, diarrhea, constipation, melena, hematochezia or hematemesis. GENITOURINARY: Denies dysuria, hematuria, increase or decrease in frequency. NEUROLOGIC: Chronic confusion. Denies lightheadedness, dizziness. PSYCHIATRIC: Denies depression, anxiety or substance abuse. ENDOCRINE: Denies polydipsia, cold or hot intolerance. SKIN: Denies any rashes, lesions or ulcer. PHYSICAL EXAMINATION: VITAL SIGNS: Temperature 98, pulse 65, respiratory rate 20, blood pressure 154/50, 95% on 3 liters nasal cannula. GENERAL: This is a 71-year-old female, height of 4 feet 10 inches, weighs 75 kilograms, mildly confused. HEAD: Normocephalic, atraumatic. EYES: PERRL. No lesion, no ulceration, nonicterus. ENT: Oropharynx, the oral and nasal mucosa is moist. No lesion, no scars. NECK: Without lesions, masses or ulcerations. Trachea midline. HEART: Rate regular rhythm. No murmur or gallop. LUNGS: Dyspnea on exertion, shortness of breath, cough with some sputum production. Lungs sound diminished. Scattered diffuse wheezes noted throughout the lungs. ABDOMEN: Soft, positive bowel sounds, nontender, nondistended, no masses, no rebound tenderness. EXTREMITIES: No clubbing, cyanosis, erythema or edema. NEUROLOGIC: Grossly intact. Confused. PSYCHOLOGIC: Poor historian. SKIN: Warm, dry, no rashes, no induration, no tightening or ecchymosis. LABORATORY DATA: Hematology: White cell count 10.9, hemoglobin 12.9, platelets 237. Chemistry: Sodium 139, potassium 4.5, BUN 23, creatinine 1.06. Lactic acid of 2.6. INR 1.1. Blood gas pH of 7.3, pCO2 of 51.2, pO2 of 54 and bicarbonate of 30.5. Microbiology: Sputum culture and Gram stain pending. Blood cultures are pending to date. IMAGING: Chest x-ray done on 06/08/2017 shows negative for acute airspace consolidation. Chest CT done on 06/08/2017 shows subsegmental atelectasis, [place], [place] REPORT OF CONSULTATION NAME: HALINA CORTES UNIT #: [id number] ROOM: 518 DOCTOR: AIYANA ZELAYA DO BIRTHDATE: [birth year] medial segment right middle lobe, anterior right upper lobe and left lower lobe, small focal pneumonia, 3 cm lesion on right kidney, possible cortical renal cyst. Ultrasound recommended renal ultrasound done on 06/09/2017 showed simple 3.6 cm right renal cyst, otherwise unremarkable. No hydronephrosis is noted. ASSESSMENT AND PLAN: Please refer to Dr. Rush's note for further assessment and plan. Thank you for the consultation. AIYANA ZELAYA DO AUGUSTO RUSH MD CM:CONSTR:REPORT OF CONSULTATION 1217 06/09/17 1342 interface
[2017-06-08 11:04] VITALS: BP 124/44
[2017-06-08 11:30] LABS: ABG BASE EXCESS 4.9 mmol/L (-2.0-2.0); ABG HCO3 30.5 mmol/l (22-26); ABG O2 SATURATION 88.8 % (95-97); ARTERIAL BLOOD GAS PCO2 51.2 mmHg (35-45); ARTERIAL BLOOD GAS PH 7.393 (7.35-7.45); ARTERIAL BLOOD GAS PO2 54.5 mmHg (80-90)
[2017-06-08 12:24] LABS: BASO # 0.1 10*3/uL (0.0-0.1); BASO % 0.5 % (0.0-1.0); EOS # 0.1 10*3/uL (0.0-0.4); EOS % 1.1 % (1.0-4.0); HEMOGLOBIN 12.9 g/dl (12.0-16.0); LYMPH # 2.1 10*3/uL (1.3-4.4); LYMPH % 19.4 % (27.0-41.0); MEAN CELL VOLUME 90.1 fl (81.0-99.0); MEAN CORPUSCULAR HGB 27.7 pg (27.0-31.0); MEAN CORPUSCULAR HGB CONC 30.7 g/dl (33.0-37.0); MEAN PLATELET VOLUME 9.8 fl (9.6-12.3); MONO # 0.7 10*3/uL (0.1-1.0); MONO % 6.4 % (3.0-9.0); NEUT # 7.8 10*3/uL (2.3-7.9); PLATELET COUNT AUTOMATED 237 10*3/uL (130-400); RED BLOOD COUNT 4.66 10*6/uL (4.10-5.10); RED CELL DISTRI WIDTH 15.9 % (0-14.5); WHITE BLOOD COUNT 10.9 10*3/uL (4.8-10.8)
[2017-06-08 12:33] LABS: ACT PARTIAL THROMBO TIME 29.7 SECONDS (20.8-31.5); INTERNATIONAL NORM RATIO 1.2 (2.0-3.5)
[2017-06-08 12:43] LABS: ALBUMIN 2.8 gm/dl (3.1-4.5); CKMB 2.4 ng/ml (0.5-3.6); CREATININE 1.33 mg/dL (0.55-1.02); MAGNESIUM 1.8 mg/dL (1.5-2.1); POTASSIUM 4.7 mmol/L (3.5-5.1); TOTAL PROTEIN 6.2 gm/dL (6.4-8.2); TROPONIN I 0.028 ng/ml (<0.045)
[2017-06-08 14:11] VITALS: BP 128/54
[2017-06-08 14:45] VITALS: BP 144/54
--- NOTE | 2017-06-08 14:45 | NUR ---
A 71YO FEMALE , admitted to , under the services of LC Smith DO with a diagnosis of ACUTE RESPIRATORY FAILURE W/HYPOXIA. Chief complaint is SENT FROM [facility] WITH SHORTNESS OF BREATH AND DECREASED O2 SATURATION. Patient arrived via stretcher from ER. Monitor applied. Initial assessment completed. Vital signs taken and recorded. LC SMITH DO notified of admission to the unit. Orders received. See assessment for past medical history, medications and allergies. Patient and/or family oriented to unit. [facility] visitation policy reviewed. Clothing/patient valuable form completed. DANIKA PANDEY
--- NOTE | 2017-06-08 15:14 | NUR ---
DR. DUMONT NOTIFIED OF MOST RECENT LACTIC ACID RESULT.
--- NOTE | 2017-06-08 15:39 | NUR ---
PATIENT TO RADIOLOGY BY WHEELCHAIR FOR CT CHEST.
[2017-06-08 16:00] VITALS: BP 144/64
[2017-06-08] MEDS ORDERED: VITAMIN D-32000 UNIT PO (16:59)
[2017-06-08] MEDS ORDERED: METOPROLOL SUCC25 M2 PO (17:01)
[2017-06-08] MEDS ORDERED: CALMOSEPTINE OI71 GM T (17:05)
[2017-06-08] MEDS ORDERED: CELEXA20 MG PO (17:06)
[2017-06-08] MEDS ORDERED: LIPITOR40 MG PO (17:11)
[2017-06-08] MEDS ORDERED: CLARITIN-D 121 EACH PO (17:12)
[2017-06-08] MEDS ORDERED: DOXYCYCLINE HYC20 MG PO (17:13)
[2017-06-08] MEDS ORDERED: SYMBICORT (17:15)
--- NOTE | 2017-06-08 17:21 | NUR ---
DR. RUSH NOTIFIED OF CONSULT RE: COPD EXACERBATION.
--- NOTE | 2017-06-08 17:45 | NUR ---
DR. ARTEAGA NOTIFIED OF MOST RECENT LACTIC ACID RESULT.
[2017-06-08 20:00] VITALS: BP 125/57
--- NOTE | 2017-06-08 21:37 | NUR ---
PT INSTRUCTED AND GIVEN A FLUTTER VALVE
--- NOTE | 2017-06-08 22:00 | NUR ---
C/O LEFT SIDED RIB PAIN, REQUESTED PAIN MEDICATION, 04/29
[2017-06-09] VITALS: BP 123/43
--- NOTE | 2017-06-09 00:59 | NUR ---
24 HR chart check completed.
[2017-06-09 06:56] LABS: BASO % 0.2 % (0.0-1.0); HEMOGLOBIN 11.1 g/dl (12.0-16.0); LYMPH # 1.3 10*3/uL (1.3-4.4); LYMPH % 12.5 % (27.0-41.0); MEAN CELL VOLUME 89.9 fl (81.0-99.0); MEAN CORPUSCULAR HGB 28.1 pg (27.0-31.0); MEAN CORPUSCULAR HGB CONC 31.3 g/dl (33.0-37.0); MEAN PLATELET VOLUME 9.5 fl (9.6-12.3); MONO # 0.2 10*3/uL (0.1-1.0); NEUT # 8.9 10*3/uL (2.3-7.9); NEUT % 84.1 % (47.0-73.0); PLATELET COUNT AUTOMATED 204 10*3/uL (130-400); RED BLOOD COUNT 3.95 10*6/uL (4.10-5.10); RED CELL DISTRI WIDTH 15.9 % (0-14.5); WHITE BLOOD COUNT 10.6 10*3/uL (4.8-10.8)
[2017-06-09 06:58] LABS: HEMATOCRIT 35.5 % (37.0-47.0)
[2017-06-09 07:13] LABS: BUN 23 mg/dl (7-24); CHLORIDE 104 mmol/L (98-107); CREATININE 1.06 mg/dL (0.55-1.02); MAGNESIUM 1.7 mg/dL (1.5-2.1); PHOSPHOROUS 2.3 mg/dL (2.5-4.9); POTASSIUM 4.5 mmol/L (3.5-5.1); SODIUM 139 mmol/L (136-145)
[2017-06-09 07:32] LABS: ACT PARTIAL THROMBO TIME 26.2 SECONDS (20.8-31.5); INTERNATIONAL NORM RATIO 1.1 (2.0-3.5)
[2017-06-09 08:00] VITALS: BP 154/50
--- NOTE | 2017-06-09 09:00 | NUR ---
Transmission Specialist in to talk to patient. Patient states lives at home with son. There are few steps in the home. Physician: poly callejas Pharmacy: Home health services: [facility] Patient's level of ADLs: MINIMAL ASSIST Patient has working utilities: all working DME: [employer] Follow-up physician's appointment after d/c: will be made by hospitalist nurse director upon discharge Does patient want to access PORTAL?: no Discharge plan discussed with patient, patient states she lives at home with her son, uses a walker for ambulation, patient states she will be going back home when able and denies any home needs. FAIZA KIM
--- NOTE | 2017-06-09 09:52 | NUR ---
Per Dr. Osmin malagon duplicate echo. complete echo done 04/30/2017.
[2017-06-09 12:00] VITALS: BP 136/62
--- NOTE | 2017-06-09 12:40 | NUR ---
PHYSICAL THERAPY Trupti evaluated by PT at bedside. Please see PT eval for specific information; POC will include pt/fam ed; ther ex; gait/balance/transfer/safety training. Anticipate dc back home with family's care and resumption of [facility] for nursing/therapy. PT eval code 21675 chosen (mod complexity) done with review chart, special tests and PT eval. Megan Hagen, PT
[2017-06-09 16:00] VITALS: BP 140/42
[2017-06-09 16:12] LABS: BILIRUBIN NEGATIVE (NEGATIVE); BLOOD NEGATIVE (NEGATIVE); CLARITY SL CLOUDY (CLEAR); COLOR YELLOW (YELLOW); GLUCOSE 1+ (NEGATIVE); KETONE NEGATIVE (NEGATIVE); LEUKO ESTERASE NEGATIVE (NEGATIVE); NITRITE NEGATIVE (NEGATIVE); SPECIFIC GRAVITY 1.025 (1.005-1.030); UROBILINOGEN 0.2 E.U./dl (0.2-1.0)
[2017-06-09 16:19] LABS: BACTERIA TRACE; EPITHELIAL CELLS 16-20; MUCOUS 1+; RBC 0-2 rbc/hpf (0-2)
[2017-06-09 20:00] VITALS: BP 128/60
--- NOTE | 2017-06-09 20:00 | NUR ---
PT SITTING IN RECLINER CHAIR IN ROOM. PT IS ALERT AND ORIENTED X3. UPON FURHTER CONVERSATION, PT NOTED TO BE CONFUSED AND FORGETFUL. PT ONLY C/O IS OCC NAUSEA AND DIZZINESS W/CHANGE OF PLANE. WILL PERFORM ORTHOSTATIC BP'S IN AM. 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 PT TEACHING GIVEN W/OUT GOOD EFFECT.
[2017-06-10] VITALS: BP 149/54
[2017-06-10 08:00] VITALS: BP 138/46
--- NOTE | 2017-06-10 09:06 | NUR ---
PHYSICAL THERAPY Pt seen this AM 1:1 for her therapy session. Pt supine in bed, transfedr supine/sit CGA X 1, sitting balance supervision x 1, X 4 min. Sit/stand and standing balance with wheeled walker MIN A X 1. Pt on portable o2 at 3 L. Gait with wheeled walker and MIN CHANNEL LIP WETTER X 1, no LOB 100' X 2, cueing for gait, walker, turn safety. After sitting rest act Ex to bilateral LE of marching, LAQ's, ankle pumps working in 20 reps each with cueing for each Ex, Pt with call light no complaint. LUNA HUGHES [employer]ESS AND BLOW MACHINE TENDER.
[2017-06-10] MEDS ORDERED: LEVOFLOXACIN500 MG PO (09:09)
[2017-06-10] MEDS ORDERED: PREDNISONE10 MG PO (09:09)
[2017-06-10] MEDS ORDERED: GLYBURIDE1.5 MG PO (09:10)
--- NOTE | 2017-06-10 11:37 | NUR ---
Discharge instructions reviewed with patient/family. Patient receptive and verbalizes understanding. Follow-up care arranged. Written instructions given to patient/family. MARIA DEL ROSARIO BRYSON
--- NOTE | 2017-06-10 14:08 | NUR ---
Patient discharged to home to resume home health with [facility]. Faxed clinicals to [facility]
--- NOTE | 2017-06-11 08:10 | NUR ---
PHYSICAL THERAPY CO-SIGN I approve of the Phyical Therapy notes written above. MICHAEL LEDESMA PT
== END 2017-06-10 11:37 | disposition home health service (06) | DRG 189 ==
LOC: RESCLI → EDSTATUS 11:00 → ED 11:01 → RESCLI 11:15 → 5E 12:46 → EDHOLD 12:46 → 5E 13:07 → RESCLI 13:36 → 5E 06-10 09:53
PROVIDERS: Emergency Medicine; Family Medicine; ADMIT Internal Medicine
DX: J96.21 Acute and chronic respiratory failure with hypoxia (principal); N17.0 Acute kidney failure with tubular necrosis; E43 Unspecified severe protein-calorie malnutrition; J18.9 Pneumonia, unspecified organism; E87.2 Acidosis; D68.69 Other thrombophilia; I13.0 Hypertensive heart and chronic kidney disease with heart failure and stage 1 through stage 4 chronic kidney disease, or unspecified chronic kidney disease; I50.9 Heart failure, unspecified; E11.65 Type 2 diabetes mellitus with hyperglycemia; J44.1 Chronic obstructive pulmonary disease with (acute) exacerbation; J44.0 Chronic obstructive pulmonary disease with (acute) lower respiratory infection; J96.22 Acute and chronic respiratory failure with hypercapnia; N18.3 Chronic kidney disease, stage 3 (moderate); G47.33 Obstructive sleep apnea (adult) (pediatric); N28.1 Cyst of kidney, acquired; G30.9 Alzheimer's disease, unspecified; F02.80 Dementia in other diseases classified elsewhere, unspecified severity, without behavioral disturbance, psychotic disturbance, mood disturbance, and anxiety; F17.210 Nicotine dependence, cigarettes, uncomplicated; I25.10 Atherosclerotic heart disease of native coronary artery without angina pectoris; F41.9 Anxiety disorder, unspecified; F32.9 Major depressive disorder, single episode, unspecified; E78.5 Hyperlipidemia, unspecified; E66.01 Morbid (severe) obesity due to excess calories; I48.0 Paroxysmal atrial fibrillation; Z99.81 Dependence on supplemental oxygen; Z79.4 Long term (current) use of insulin; Z88.2 Allergy status to sulfonamides; Z79.899 Other long term (current) drug therapy; Z79.82 Long term (current) use of aspirin; Z90.710 Acquired absence of both cervix and uterus; Z95.5 Presence of coronary angioplasty implant and graft; Z87.01 Personal history of pneumonia (recurrent); Z82.49 Family history of ischemic heart disease and other diseases of the circulatory system; Z83.3 Family history of diabetes mellitus; Z80.3 Family history of malignant neoplasm of breast; Z80.8 Family history of malignant neoplasm of other organs or systems; Z82.3 Family history of stroke; Z68.33 Body mass index [BMI] 33.0-33.9, adult

== ENCOUNTER → 2017-06-28 | Outpatient (CLI) | payer MEDICARE, MEDICAID ==
[~2017-06-28] MED LIST changes: +CALMOSEPTINE OI71 GM T; +CELEXA20 MG PO; +CLARITIN-D 121 EACH PO; +DOXYCYCLINE HYC20 MG PO; +GLYBURIDE1.5 MG PO; +LEVOFLOXACIN500 MG PO; +LIPITOR40 MG PO; +SYMBICORT; +VITAMIN D-32000 UNIT PO
== END | disposition home or self-care (01) ==
LOC: RESCLI 01:30
DX: I11.0 Hypertensive heart disease with heart failure (principal); I50.32 Chronic diastolic (congestive) heart failure; I48.0 Paroxysmal atrial fibrillation; E78.5 Hyperlipidemia, unspecified; E11.9 Type 2 diabetes mellitus without complications; J44.9 Chronic obstructive pulmonary disease, unspecified; J18.9 Pneumonia, unspecified organism; F17.200 Nicotine dependence, unspecified, uncomplicated

== ENCOUNTER → 2017-07-27 | Outpatient (CLI) | payer MEDICARE, MEDICAID | END | disposition home or self-care (01) | LOC: RESCLI 10:45 | DX: I51.7 Cardiomegaly (principal); R06.2 Wheezing ==

== ENCOUNTER 2017-08-01 18:00 | Emergency (ER) | payer MEDICARE, OTHER ==
[~2017-08-01] VITALS: Wt 71.7 kg
[2017-08-01 18:11] VITALS: BP 134/66
== END 2017-08-01 23:26 | disposition home or self-care (01) ==
LOC: ED 18:00
DX: S70.02XA Contusion of left hip, initial encounter (principal); M25.562 Pain in left knee; F17.200 Nicotine dependence, unspecified, uncomplicated; Z90.710 Acquired absence of both cervix and uterus; Z79.82 Long term (current) use of aspirin; Z79.899 Other long term (current) drug therapy; Z88.2 Allergy status to sulfonamides; W19.XXXA Unspecified fall, initial encounter; Y93.89 Activity, other specified; Y92.009 Unspecified place in unspecified non-institutional (private) residence as the place of occurrence of the external cause; Y99.9 Unspecified external cause status

== ENCOUNTER 2017-08-06 16:34 | Inpatient (IN) | payer MEDICARE, OTHER ==
[~2017-08-06] VITALS: Ht 142.2 cm; Wt 79.8 kg
--- NOTE | ~2017-08-06 | PR ---
[place], [place] PROGRESS NOTE NAME: HALINA CORTES [facility] #: [id number] UNIT #: [id number] ROOM: 522 DOCTOR: GENEVIEVE PRAJAPATI MD BIRTHDATE: [birth year] DOS: SUBJECTIVE: The patient has been admitted to the hospital indicating lightheadedness and confusion and she had a fall on Wednesday, last week, and family states that since that day, the patient seems to be somewhat confused and not the same. He had CT scan of the head and cervical spine performed on 08/01/2017 which was found to be normal. She has history of bradycardia due to that reason, her metoprolol was stopped as stated before her CT scan of the head, shows no acute injury, essentially normal. Chest x-ray is normal. She has past history of Alzheimer disease, anxiety, CAD, chronic respiratory failure, COPD, depression, diabetes and likely diabetic congestive heart failure, essential hypertension, hypercoagulability state, morbid obesity, obstructive sleep apnea, osteoarthritis, paroxysmal atrial fibrillation, right heart failure, supplemental oxygen dependent, tobacco abuse, and vitamin D deficiency. The patient is right now, sitting comfortably in the bed, gently take her breath ____ her oxygen is on, she is not in any distress. Her troponin level is normal. CBC showed hypochromia with hemoglobin 11.1, hematocrit 36.9 showing hypochromic anemia. Basic metabolic profile showed glucose 256, BUN 23, creatinine 1.8, GFR 41. Hemoglobin A1c 6.7. Vitamin B12 and folic acid level are normal. Vitamin D level is normal. OBJECTIVE: VITAL SIGNS: Her blood pressure today is 125/73, pulse 56, respirations 20, temperature 98.6. CHEST: Having no wheezing, increased expiration. No crepitation. HEART: Regular. ABDOMEN: Soft. GENEVIEVE PRAJAPATI MD CM:PNTRANS [id number] [phone] GENEVIEVE PRAJAPATI MD 08/07/172053 interface
[2017-08-06 16:51] VITALS: BP 164/50
[2017-08-06 17:07] LABS: HEMOGLOBIN 12.3 g/dl (12.0-16.0); MEAN CELL VOLUME 91.5 fl (81.0-99.0); MEAN CORPUSCULAR HGB 28.1 pg (27.0-31.0); MEAN CORPUSCULAR HGB CONC 30.8 g/dl (33.0-37.0); MEAN PLATELET VOLUME 10.3 fl (9.6-12.3); PLATELET COUNT AUTOMATED 231 10*3/uL (130-400); RED BLOOD COUNT 4.37 10*6/uL (4.10-5.10); RED CELL DISTRI WIDTH 15.1 % (0-14.5); WHITE BLOOD COUNT 14.4 10*3/uL (4.8-10.8)
[2017-08-06 17:09] LABS: CREATININE 1.23 mg/dL (0.55-1.02); POTASSIUM 4.2 mmol/L (3.5-5.1)
[2017-08-06 17:10] LABS: ACT PARTIAL THROMBO TIME 46.3 SECONDS (20.8-31.5); INTERNATIONAL NORM RATIO 1.5 (2.0-3.5)
[2017-08-06 17:24] LABS: BASOPHILS 2 % (0-1); TOTAL CELLS COUNTED 100 #CELLS
[2017-08-06 17:25] LABS: OVALOCYTES FEW
[2017-08-06 17:26] LABS: PLATELET SUFFICIENCY NORMAL (NORMAL)
[2017-08-06 17:52] LABS: BILIRUBIN NEGATIVE (NEGATIVE); BLOOD NEGATIVE (NEGATIVE); CLARITY SL CLOUDY (CLEAR); COLOR YELLOW (YELLOW); GLUCOSE NEGATIVE (NEGATIVE); KETONE NEGATIVE (NEGATIVE); LEUKO ESTERASE NEGATIVE (NEGATIVE); NITRITE NEGATIVE (NEGATIVE); PH 5.5 (5.0-9.0); UROBILINOGEN 0.2 E.U./dl (0.2-1.0)
[2017-08-06 17:58] LABS: BACTERIA 2+; EPITHELIAL CELLS 0-2; RBC 0-2 rbc/hpf (0-2)
[2017-08-06 18:27] LABS: ABG BASE EXCESS 3.8 mmol/L (-2.0-2.0); ABG O2 SATURATION 96.8 % (95-97); ARTERIAL BLOOD GAS PCO2 48.3 mmHg (35-45); ARTERIAL BLOOD GAS PH 7.394 (7.35-7.45); ARTERIAL BLOOD GAS PO2 82.7 mmHg (80-90)
[2017-08-06 18:38] LABS: ALBUMIN 3.2 gm/dl (3.1-4.5); ALKALINE PHOSPHATASE 108 U/L (45-117); BILIRUBIN, DIRECT < 0.1 mg/dL (0.0-0.2); SGOT/AST 20 IU/L (3-35); SGPT/ALT 21 U/L (12-78); TOTAL PROTEIN 6.2 gm/dL (6.4-8.2)
[2017-08-06 18:45] LABS: TROPONIN I < 0.015 ng/ml (<0.045)
[2017-08-06 20:00] VITALS: BP 136/78
[2017-08-06] MEDS ORDERED: Glipizide2.5 MG PO (20:44)
[2017-08-06] MEDS ORDERED: REMERON15 M2 PO (20:44)
[2017-08-06] MEDS ORDERED: ZANTAC 150150 MG PO (20:45)
[2017-08-07] VITALS: BP 127/73
[2017-08-07 07:13] LABS: BASO % 0.5 % (0.0-1.0); EOS % 0.3 % (1.0-4.0); HEMATOCRIT 36.9 % (37.0-47.0); HEMOGLOBIN 11.1 g/dl (12.0-16.0); LYMPH # 1.6 10*3/uL (1.3-4.4); LYMPH % 21.8 % (27.0-41.0); MEAN CELL VOLUME 90.9 fl (81.0-99.0); MEAN CORPUSCULAR HGB 27.3 pg (27.0-31.0); MEAN CORPUSCULAR HGB CONC 30.1 g/dl (33.0-37.0); MEAN PLATELET VOLUME 10.6 fl (9.6-12.3); MONO # 0.1 10*3/uL (0.1-1.0); MONO % 0.9 % (3.0-9.0); NEUT # 5.6 10*3/uL (2.3-7.9); NEUT % 76.1 % (47.0-73.0); PLATELET COUNT AUTOMATED 201 10*3/uL (130-400); RED BLOOD COUNT 4.06 10*6/uL (4.10-5.10); WHITE BLOOD COUNT 7.4 10*3/uL (4.8-10.8)
[2017-08-07 07:45] LABS: CREATININE 1.28 mg/dL (0.55-1.02); FREE T4 1.08 ng/dl (0.76-1.46); PHOSPHOROUS 3.9 mg/dL (2.5-4.9); POTASSIUM 4.5 mmol/L (3.5-5.1)
[2017-08-07 07:51] LABS: THYROID STIM HORMONE (HS) 0.886 uIU/ml (0.358-4.75)
[2017-08-07 08:00] VITALS: BP 125/98
[2017-08-07 09:07] LABS: VITAMIN D, 25-HYDROXY 42.4 ng/mL (30-100)
[2017-08-07 12:00] VITALS: BP 136/58
[2017-08-07] MEDS ORDERED: DOXYCYCLINE100 M3 PO (12:44)
[2017-08-07] MEDS ORDERED: PREDNISONE10 MG PO (12:45)
== END 2017-08-07 15:45 | disposition home or self-care (01) | DRG 871 ==
LOC: ED 16:34 → EDHOLD 17:54 → 5E 18:24
PROVIDERS: Emergency Medicine; Internal Medicine; ADMIT Internal Medicine
DX: A41.9 Sepsis, unspecified organism (principal); G93.41 Metabolic encephalopathy; J96.11 Chronic respiratory failure with hypoxia; D68.69 Other thrombophilia; J96.12 Chronic respiratory failure with hypercapnia; E11.42 Type 2 diabetes mellitus with diabetic polyneuropathy; E44.1 Mild protein-calorie malnutrition; J44.1 Chronic obstructive pulmonary disease with (acute) exacerbation; F33.9 Major depressive disorder, recurrent, unspecified; I50.32 Chronic diastolic (congestive) heart failure; E66.01 Morbid (severe) obesity due to excess calories; Z66 Do not resuscitate; G30.9 Alzheimer's disease, unspecified; Z51.5 Encounter for palliative care; F02.80 Dementia in other diseases classified elsewhere, unspecified severity, without behavioral disturbance, psychotic disturbance, mood disturbance, and anxiety; J01.01 Acute recurrent maxillary sinusitis; G47.33 Obstructive sleep apnea (adult) (pediatric); I25.10 Atherosclerotic heart disease of native coronary artery without angina pectoris; F41.9 Anxiety disorder, unspecified; I48.0 Paroxysmal atrial fibrillation; I11.0 Hypertensive heart disease with heart failure; M19.90 Unspecified osteoarthritis, unspecified site; R00.1 Bradycardia, unspecified; F17.210 Nicotine dependence, cigarettes, uncomplicated; D72.820 Lymphocytosis (symptomatic); E83.41 Hypermagnesemia; Z71.6 Tobacco abuse counseling; Z99.81 Dependence on supplemental oxygen; Z68.39 Body mass index [BMI] 39.0-39.9, adult; Z90.710 Acquired absence of both cervix and uterus; Z95.5 Presence of coronary angioplasty implant and graft; Z80.3 Family history of malignant neoplasm of breast; Z82.49 Family history of ischemic heart disease and other diseases of the circulatory system; Z88.2 Allergy status to sulfonamides; Z79.1 Long term (current) use of non-steroidal anti-inflammatories (NSAID); Z79.51 Long term (current) use of inhaled steroids; Z79.899 Other long term (current) drug therapy; Z79.82 Long term (current) use of aspirin

== ENCOUNTER 2017-09-05 02:21 | Inpatient (IN) | payer MEDICARE, OTHER ==
[~2017-09-05] VITALS: Ht 142.2 cm; Wt 87.7 kg
[2017-09-05] VITALS (7 sets, daily range): BP systolic 122–181; BP diastolic 42–72
--- NOTE | ~2017-09-05 | PR ---
[place], [place] PROGRESS NOTE [id number] UNIT #: [id number] ROOM: 415 DOCTOR: VICTOR MANUEL MARTINEZ MD,[place]O BIRTHDATE: [birth year] DOS: 09/08/2017 SUBJECTIVE: She has been noted comfortable condition, reduction and improvement in respiratory symptoms of coughing, shortness of breath and others. OBJECTIVE: VITAL SIGNS: Recorded showed normal temperature, respiratory rate 18, heart rate 60, blood pressure 157/62. Pulse oxygen saturation on 3 liters nasal canula of 92% saturation. HEENT: No acute change. Moderate obesity. NECK: Supple. CARDIOVASCULAR: S1, S2 audible. LUNGS: Without any wheezing or crackles today. Breaths are noted mildly decreased bilaterally. ABDOMEN: Soft, nontender. LABORATORY DATA: Culture of the sputum, no bacterial growth. IMPRESSION: The patient with resolving acute exacerbation of chronic obstructive pulmonary disease, progressively. PLAN OF MANAGEMENT: At this time, the patient may be considered for home discharge on tapering dose of prednisone, antibiotics, and other treatment if necessary by the primary care physician. Outpatient followup will be kept as previously. AUGUSTO RUSH MD CM:PNTRANS [id number] AUGUSTO MARTINEZ MD 09/08/17 182 interface
--- NOTE | ~2017-09-05 | CON ---
[place], [place] REPORT OF CONSULTATION NAME: HALINA CORTES LOCATED WITHIN [facility] #: [id number] UNIT #: [id number] ROOM: 415 DOCTOR: VICTOR MANUEL MARTINEZ MD,[place] BIRTHDATE: [birth year] DOS: 09/06/2017 REASON FOR CONSULTATION: Consultation requested by the hospitalist service for assessment of exacerbation of COPD. HISTORY OF PRESENT ILLNESS: This is a 71-year-old white female with history of known COPD, has been known to me from the past as well. She presented to the hospital Emergency Room on 09/05/2017. The patient reported symptoms of progressive shortness breath, which has been occurring for the patient over the past several days. The patient's shortness breath remains persistent. The patient is taking additional treatment of nebulized bronchodilators and has not responded to the treatment. She was also noticed with symptoms of cough. The patient's chest congestion, unable to expectorate sputum. She was also noted with symptoms of significant wheezing as well. She denies any symptoms of fever or chills at this time. Denies symptoms of chest pain. She has been currently admitted to the hospital, being treated with acute exacerbation of chronic obstructive pulmonary disease as well. REVIEW OF SYSTEMS: CONSTITUTIONAL: She does complain of fatigue and tiredness and did not report symptoms of fever or chills. EYES: Denies any burning, redness, or tenderness. NECK, EAR, NOSE, AND THROAT: Denies any symptoms of sore throat, hoarseness, otalgia, or postnasal drainage. CARDIOVASCULAR: No anginal pain, edema or pain of the lower extremity. GASTROINTESTINAL: Symptoms of dysphagia, nausea, vomiting, diarrhea, abdominal pain, hematemesis, melena, or hematochezia. SKIN: Denies lesions or rashes. GENITOURINARY SYMPTOMS: Symptoms of dysuria, suprapubic pain, hematuria. MUSCULOSKELETAL: Does not show any acute deformities. SKIN: No lesions or rashes. Remaining systems were reviewed. They were noted all negative. PAST MEDICAL HISTORY: Known with history of: 1. COPD. 2. Chronic hypoxic respiratory failure, use of oxygen 3 liters nasal cannula. 3. Type 2 diabetes mellitus. 4. Anxiety disorder. 5. Mild dementia. 6. Seizures. 7. Essential hypertension. 8. Atrial fibrillation. 9. Obstructive sleep apnea disorder. 10. Chronic obesity. 11. Hypercoagulable status. 12. Congestive heart failure. The patient with diastolic dysfunction. PAST SURGICAL HISTORY: Reported as, 1. Hysterectomy. [place], [place] REPORT OF CONSULTATION NAME: HALINA CORTES UNIT #: [id number] ROOM: [facility] DOCTOR: VICTOR MANUEL MARTINZE MD,[place]UST[place] BIRTHDATE: [birth year] 2. Cardiac catheterization and coronary stents insertion. SOCIAL HISTORY: The patient smoking started at younger age, a pack of cigarettes per day. There was no history of alcohol use or any illicit drug use. She was known with history of tobacco use, 1 pack of cigarettes per day and currently smoking less than 1/4 pack of cigarettes per day on a daily basis. FAMILY HISTORY: The patient's father at 72 years old, complication of liver problems. Mother at the age of 6868 years old from complication related to metastatic breast cancer. History of coronary artery disease, diabetes and other medical problems was reported in the other siblings. HOME MEDICATIONS: Recorded as use of, 1. Ventolin HFA inhaler p.r.n. use as well as a nebulizer 2.5 mg q.i.d. p.r.n. for shortness of breath. 2. Aspirin 325 mg p.o. daily. 3. Lipitor 40 mg daily. 4. Oyster shell calcium 5 mg p.o. b.i.d. 5. Vitamin D 4000 international units daily. 6. Citalopram 30 mg p.o. daily. 7. Aricept 20 mg at bedtime. 8. Celexa 30 mg daily. 9. Multaq 400 mg p.o. b.i.d. 10. Breo Ellipta 1 inhalation daily. 11. Lasix 20 mg daily. 12. Glipizide 2.5 mg daily. 13. Victoza shot once a day. 14. Lisinopril 10 mg p.o. daily. 15. Claritin-D 1 p.o. daily p.r.n. for nasal congestion. 16. Latuda 20 mg at bedtime. 17. Potassium chloride 20 mg p.o. daily. 18. Zantac 150 mg at bedtime. 19. Xarelto 20 mg p.o. daily. DRUG ALLERGY HISTORY: SULFA DRUGS. PHYSICAL EXAMINATION: GENERAL: This is a 71-year-old female who has been currently sitting on the chair in the room without any acute distress at the time of the assessment. Height was recorded 4 feet 8 inches, weight of 82 kilograms, BMI 40.9. VITAL SIGNS: Normal temperature, respiratory rate 18-20, heart rate of 64-61, blood pressure 130/59-155/66. Pulse oxygen saturation on 3 liters nasal cannula 99% saturation recorded. Room air oxygen saturation at rest was 92% saturation upon admission. HEENT: Chronic obesity. Neck was supple. Head was atraumatic. CARDIOVASCULAR: S1, S2 audible. LUNGS: Diffuse expiratory wheezing for the patient in the lungs. There were no crackles heard. ABDOMEN: Soft, nontender. [place], [place] REPORT OF CONSULTATION NAME: HALINA CORTES UNIT #: [id number] ROOM: [facility] DOCTOR: VICTOR MANUEL MARTINEZ MDAUGUSTO BIRTHDATE: [birth year] EXTREMITIES: Shows chronic obesity without any edema. SKIN: No lesions or rashes. MUSCULOSKELETAL: No deformities. CENTRAL NERVOUS SYSTEM: Cranial nerves 2-12 intact. No focal deficits. MUSCULOSKELETAL: No deformities. LABORATORY DATA: CBC for the patient that was done on admission yesterday normal CBC. Lactic acid 0.9. PT/INR yesterday was normal. CMP yesterday on admission; BUN 20, creatinine 1.19, sodium 146. Albumin of 3.0, total protein of 6.0. CBC that was done this morning showed WBC count 13.5, hemoglobin 11, hematocrit 36.0, platelet count of 300,000. CMP of the patient on 09/06/2017; glucose 210, BUN 18, creatinine 1.12. Remaining CMP was normal. The troponin yesterday on admission was noted as normal. One view chest x-ray of patient that was done for the patient on 09/05/2017 was reviewed with PACS images, does not show any acute pulmonary abnormalities. Changes of COPD were visible. IMPRESSION: 1. The patient who has been currently admitted to the hospital with finding of acute exacerbation of chronic obstructive pulmonary disease and acute bronchitis of the patient. 2. History of chronic nicotine dependence. 3. Obstructive sleep apnea disorder as well. 4. Coronary artery disease, atrial fibrillation, and multiple other medical illnesses. PLAN OF MANAGEMENT: The patient has been currently receiving the bronchodilators; DuoNeb every 4 hours and Solu-Medrol 80 mg every 8 hours. She was also receiving the oral antibiotics as well and IV Rocephin. Zithromax was also given intravenously. Plan of management is to reduce the dose of Solu-Medrol to 40 mg b.i.d. The patient will be continued on current antibiotics as well. Obtain the sputum for Gram stain and culture if the patient expectorates sputum. Nicotine replacement patches 7 mg will be ordered in order to overcome any nicotine withdrawal. Additional treatment changes will be done for this patient based on progression of the illness. Solu-Medrol will be further decreased for the patient gradually based on the improvement in the wheezing. Continue current dose of Mucinex as well. Supportive care, other plan of therapy and management plan. Thanks for allowing me to participate in the care of this patient. [place], [place] REPORT OF CONSULTATION NAME: SEBASTIANHALINA M UNIT #: [id number] ROOM: [facility] DOCTOR: AUGUSTO KENNEY MD BIRTHDATE: [birth year] AUGUSTO RUSH MD CM:CONSTR:REPORT OF CONSULTATION 1326 09/07/17 0134 interface
--- NOTE | ~2017-09-05 | PR ---
[place], [place] PROGRESS NOTE NAME: HALINA CORTES UNIT #: [id number] ROOM: 415 DOCTOR: AUGUSTO KENNEY MD BIRTHDATE: [birth year] DOS: 09/07/2017 PULMONARY FOLLOWUP NOTE SUBJECTIVE: The patient has been sitting on the chair this morning. Denies symptoms of chest pain or hemoptysis. She was continued on the medical management for acute exacerbation of COPD or reported reduction of the shortness of breath and wheezing. OBJECTIVE: VITAL SIGNS: Normal temperature, respiratory rate of 20 this morning, heart rate 51, blood pressure 129/50. The pulse oxygen saturation 3 liters nasal cannula 98% saturation. HEENT: Chronic obesity. NECK: Supple. CARDIOVASCULAR: S1, S2 audible. LUNGS: The patient was noted with moderate decreased breath sounds, scattered expiratory wheezing. There were no crackles. ABDOMEN: Soft and obese. EXTREMITIES: Chronic obesity. LABORATORY DATA: Cultured the sputum noted from 18th as normal vickie. The Gram-stain reported as moderate white blood cells, epithelial cells, gram-positive cocci in pairs, chains and clusters. IMPRESSION: The patient was being currently treated with acute exacerbation of chronic obstructive pulmonary disease and acute bronchitis, responding to treatment slowly. PLAN OF TREATMENT: Decrease the Solu-Medrol to 40 mg b.i.d. dosing at this time. Continue other supportive plan of management and care as in progress. Supportive plan of management and care. Continue current replacement therapy as well. [place], [place] PROGRESS NOTE NAME: SEBASTIANDAYTONHALINA Leanne UNIT #: [id number] ROOM: 415 DOCTOR: AUGUSTO KENNEY MD BIRTHDATE: [birth year] AUGUSTO RUSH MD CM:PNTRANS [id number] AUGUSTO MARTINEZ MD 09/07/17 1702 interface
[~2017-09-05 02:21] MED LIST changes: -ALBUTEROL S5 MG/1 ML INH; +ALBUTEROL S5 MG/1 ML PO; +Glipizide2.5 MG PO; +REMERON15 M2 PO; +ZANTAC 150150 MG PO
[2017-09-05 02:51] LABS: BASO % 0.4 % (0.0-1.0); EOS # 0.4 10*3/uL (0.0-0.4); EOS % 3.4 % (1.0-4.0); HEMOGLOBIN 11.4 g/dl (12.0-16.0); LYMPH # 4.9 10*3/uL (1.3-4.4); MEAN CELL VOLUME 90.3 fl (81.0-99.0); MEAN CORPUSCULAR HGB 27.1 pg (27.0-31.0); MEAN PLATELET VOLUME 10.2 fl (9.6-12.3); MONO # 0.8 10*3/uL (0.1-1.0); MONO % 8.1 % (3.0-9.0); NEUT # 4.2 10*3/uL (2.3-7.9); NEUT % 40.6 % (47.0-73.0); PLATELET COUNT AUTOMATED 255 10*3/uL (130-400); RED BLOOD COUNT 4.21 10*6/uL (4.10-5.10); RED CELL DISTRI WIDTH 13.8 % (0-14.5); WHITE BLOOD COUNT 10.4 10*3/uL (4.8-10.8)
[2017-09-05 03:00] LABS: INTERNATIONAL NORM RATIO 1.1 (2.0-3.5)
[2017-09-05 03:15] LABS: CREATININE 1.19 mg/dL (0.55-1.02); POTASSIUM 4.9 mmol/L (3.5-5.1)
[2017-09-05 03:16] LABS: TROPONIN I 0.021 ng/ml (<0.045)
--- NOTE | 2017-09-05 04:30 | NUR ---
A 71, admitted to [facility], under the services of LC Smith DO with a diagnosis of COPD EXACERBATION. Chief complaint is SHORTNESS OF BREATG. Patient arrived via stretcher from ER. Monitor applied. Initial assessment completed. Vital signs taken and recorded. LC SMITH DO notified of admission to the unit. Orders received. See assessment for past medical history, medications and allergies. Patient and/or family oriented to unit. [facility] visitation policy reviewed. Clothing/patient valuable form completed. TOMAS JULIEN
--- NOTE | 2017-09-05 05:40 | NUR ---
IV SITE LEAKING. SITE DISCONTINUED.
[2017-09-05 06:44] LABS: BASO % 0.4 % (0.0-1.0); EOS # 0.3 10*3/uL (0.0-0.4); EOS % 3.1 % (1.0-4.0); HEMATOCRIT 34.9 % (37.0-47.0); HEMOGLOBIN 10.5 g/dl (12.0-16.0); LYMPH # 4.2 10*3/uL (1.3-4.4); LYMPH % 40.8 % (27.0-41.0); MEAN CELL VOLUME 92.3 fl (81.0-99.0); MEAN CORPUSCULAR HGB 27.8 pg (27.0-31.0); MEAN CORPUSCULAR HGB CONC 30.1 g/dl (33.0-37.0); MEAN PLATELET VOLUME 9.9 fl (9.6-12.3); MONO # 0.7 10*3/uL (0.1-1.0); NEUT # 4.9 10*3/uL (2.3-7.9); NEUT % 48.2 % (47.0-73.0); PLATELET COUNT AUTOMATED 237 10*3/uL (130-400); RED BLOOD COUNT 3.78 10*6/uL (4.10-5.10); WHITE BLOOD COUNT 10.2 10*3/uL (4.8-10.8)
[2017-09-05 07:08] LABS: ACT PARTIAL THROMBO TIME 31.9 SECONDS (20.8-31.5); INTERNATIONAL NORM RATIO 1.1 (2.0-3.5)
[2017-09-05 07:11] LABS: ALBUMIN 2.8 gm/dl (3.1-4.5); CREATININE 1.15 mg/dL (0.55-1.02); PHOSPHOROUS 4.1 mg/dL (2.5-4.9); POTASSIUM 4.4 mmol/L (3.5-5.1); TOTAL PROTEIN 5.8 gm/dL (6.4-8.2)
[2017-09-05 07:16] LABS: FREE T4 1.04 ng/dl (0.76-1.46); THYROID STIM HORMONE (HS) 3.17 uIU/ml (0.358-4.75)
[2017-09-05 09:13] LABS: VITAMIN D, 25-HYDROXY 39.4 ng/mL (30-100)
--- NOTE | 2017-09-05 10:15 | NUR ---
VERIFIED HOME MEDICATIONS WITH [facility].
[2017-09-05] MEDS ORDERED: REMERON15 M2 PO (10:22)
[2017-09-05] MEDS ORDERED: VENTOLIN 02.5 MG/3 M INH (10:24)
[2017-09-05] MEDS ORDERED: PROAIR HFA8.5 GM INH (10:26)
[2017-09-05] MEDS ORDERED: LATU20TA PO (14:18)
--- NOTE | 2017-09-05 15:31 | NUR ---
NOTIFIED OF NEW CONSULT ORDER. NO NEW ORDERS RECEIVED.
--- NOTE | 2017-09-05 20:10 | NUR ---
PT RESTING IN BED. NO S AND S OF ACUTE DISTRESS NOTED AT THIS TIME. RESPS EASY AND REGULAR. DENIES PAIN AT THIS TIME. CALL LIGHT IN REACH.
[2017-09-06] VITALS: BP 138/59
--- NOTE | 2017-09-06 | NUR ---
ASSUMED CARE OF PATIENT. ASSESSMENT COMPLETE. SITTING UP IN CHAIR. NO VOICED COMPLAINTS. CALL LIGHT IN REACH. WILL CONTINUE TO MONITOR.
--- NOTE | 2017-09-06 02:00 | NUR ---
SLEEPING. NO DISTRESS NOTED. CALL LIGHT IN REACH. WILL CONTINUE TO MONITOR.
[2017-09-06 07:18] LABS: BASO % 0.1 % (0.0-1.0); HEMOGLOBIN 11.1 g/dl (12.0-16.0); LYMPH # 2.1 10*3/uL (1.3-4.4); LYMPH % 15.5 % (27.0-41.0); MEAN CORPUSCULAR HGB 27.8 pg (27.0-31.0); MEAN CORPUSCULAR HGB CONC 30.8 g/dl (33.0-37.0); MONO # 0.4 10*3/uL (0.1-1.0); NEUT # 10.9 10*3/uL (2.3-7.9); NEUT % 80.8 % (47.0-73.0); PLATELET COUNT AUTOMATED 300 10*3/uL (130-400); RED CELL DISTRI WIDTH 13.4 % (0-14.5); WHITE BLOOD COUNT 13.5 10*3/uL (4.8-10.8)
[2017-09-06 07:53] LABS: ALBUMIN 3.1 gm/dl (3.1-4.5); CREATININE 1.12 mg/dL (0.55-1.02); POTASSIUM 4.6 mmol/L (3.5-5.1); TOTAL PROTEIN 6.4 gm/dL (6.4-8.2)
[2017-09-06 08:00] VITALS: BP 151/52
--- NOTE | 2017-09-06 09:00 | NUR ---
case management attempted to visit with patient, patient stated she was tired and wanted to sleep, will have clinical social work therapist contact patient's family, that she lives with, to see if there are any home needs
[2017-09-06 12:00] VITALS: BP 155/66
--- NOTE | 2017-09-06 13:33 | NUR ---
Nursing screen completed this date. Chart reviewed and patient admitted with COPD exacerbation with h/o alzheimers dementia. Recommend OT evaluation if required for placement after medically stable. Thank you for this consideration. Gloria Aleman OTR/l
[2017-09-06 16:00] VITALS: BP 130/58
--- NOTE | 2017-09-06 20:00 | NUR ---
AWAKE & ALERT RESTING IN BED. 02 INTACT AT 3LPM VIA NASAL CANNULA; PULSE OX 93%. LUNGS DIMINISHED BILATERALLY WITH A PRODUCTIVE COUGH FOR CLEAR SPUTUM. HEP LOCK INTACT TO LEFT WRIST; SITE ASYMPTOMATIC. PT. VOICES NO C/O AT THIS TIME. CALL LIGHT WITHIN REACH.
--- NOTE | 2017-09-06 22:00 | NUR ---
BLOODSUGAR 162; COVERAGE GIVEN PER EMAR.
[2017-09-07] VITALS: BP 146/59
--- NOTE | 2017-09-07 00:32 | NUR ---
MEDICATED WITH NORCO FOR C/O LEGS CRAMPS.
--- NOTE | 2017-09-07 04:00 | NUR ---
SLEEPING; NORCO GIVEN EARLIER APPARENTLY EFFECTIVE.
--- NOTE | 2017-09-07 06:00 | NUR ---
BLOOD SUGAR 210; COVERAGE GIVEN PER EMAR.
[2017-09-07 06:51] LABS: BASO % 0.1 % (0.0-1.0); HEMATOCRIT 32.6 % (37.0-47.0); HEMOGLOBIN 10.1 g/dl (12.0-16.0); LYMPH # 1.4 10*3/uL (1.3-4.4); LYMPH % 12.6 % (27.0-41.0); MEAN CELL VOLUME 91.3 fl (81.0-99.0); MEAN CORPUSCULAR HGB 28.3 pg (27.0-31.0); MEAN PLATELET VOLUME 10.2 fl (9.6-12.3); MONO # 0.4 10*3/uL (0.1-1.0); MONO % 3.5 % (3.0-9.0); NEUT # 9.2 10*3/uL (2.3-7.9); NEUT % 83.3 % (47.0-73.0); PLATELET COUNT AUTOMATED 268 10*3/uL (130-400); RED BLOOD COUNT 3.57 10*6/uL (4.10-5.10); RED CELL DISTRI WIDTH 13.8 % (0-14.5); WHITE BLOOD COUNT 11.1 10*3/uL (4.8-10.8)
[2017-09-07 07:14] LABS: ALKALINE PHOSPHATASE 70 U/L (45-117); BUN 30 mg/dl (7-24); CHLORIDE 106 mmol/L (98-107); CREATININE 1.08 mg/dL (0.55-1.02); POTASSIUM 5.5 mmol/L (3.5-5.1); SGOT/AST 15 IU/L (3-35); SGPT/ALT 21 U/L (12-78); SODIUM 140 mmol/L (136-145); TOTAL PROTEIN 5.8 gm/dL (6.4-8.2)
[2017-09-07 08:00] VITALS: BP 129/50
[2017-09-07 12:00] VITALS: BP 161/65
--- NOTE | 2017-09-07 14:32 | NUR ---
SW SPOKE WITH RAVINDRA PRIETO TO SEE IF SHE NEEDED ANYTHING AT HOME AND SHE SAID NO.
--- NOTE | 2017-09-07 14:33 | NUR ---
[facility] LEFT FOR SON DEEJAY TO CALL SW FOR DISCHARGE NEEDS. LEFT PHONE NUMBER.
--- NOTE | 2017-09-07 14:39 | NUR ---
[facility] RECEIVED CALL BACK FROM SON DEEJAY. SW SPOKE WITH DEEJAY AND LUISA. PT WAS DISCHARGED FROM [facility] AROUND BEGINNING OF AUGUST. LUISA [facility]. [facility] IS TRYING TO GET AIDES BACK IN HOME THROUGH [employer] BUT IT IS NOT APPROVED UNTIL September. LUISA AND DEEJAY WOULD LIKE [facility] COMPLETE [facility]. [facility] WILL MAKE REFERRAL UPON DISCHARGE.
[2017-09-07 16:00] VITALS: BP 134/61
--- NOTE | 2017-09-07 19:45 | NUR ---
TOOK OVER CARE OF PT AT THIS TIME. PT LYING IN BED, RESTING. EASILY AROUSED. NO C/O PAIN OR SOB. RESPIRATIONS EASY AND UNLABORED. LUNGS DIMINISHED THROUGHOUT. HRR UPON AUSCULTATION. NORMOACTIVE BSX4. SUPPLEMENTAL OXYGEN IN PLACE VIA NC. ENCOURAGED USE OF CALL LIGHT.
[2017-09-07 20:00] VITALS: BP 132/70
--- NOTE | 2017-09-07 22:37 | NUR ---
PT RESTING PEACEFULLY, EASILY AROUSED HS MEDICATIONS TAKEN WITH EASE. RESPIRTIONS EASY AND UNLABORED. NO S/S OF DISTRESS.
[2017-09-08] VITALS: BP 153/54
[2017-09-08 06:13] LABS: BASO % 0.2 % (0.0-1.0); EOS % 0.2 % (1.0-4.0); HEMATOCRIT 32.9 % (37.0-47.0); HEMOGLOBIN 10.2 g/dl (12.0-16.0); LYMPH # 3.6 10*3/uL (1.3-4.4); LYMPH % 26.8 % (27.0-41.0); MEAN CELL VOLUME 91.9 fl (81.0-99.0); MEAN CORPUSCULAR HGB 28.5 pg (27.0-31.0); MEAN PLATELET VOLUME 9.8 fl (9.6-12.3); MONO # 1.2 10*3/uL (0.1-1.0); MONO % 9.3 % (3.0-9.0); NEUT # 8.3 10*3/uL (2.3-7.9); NEUT % 62.6 % (47.0-73.0); PLATELET COUNT AUTOMATED 322 10*3/uL (130-400); RED BLOOD COUNT 3.58 10*6/uL (4.10-5.10); RED CELL DISTRI WIDTH 13.8 % (0-14.5); WHITE BLOOD COUNT 13.3 10*3/uL (4.8-10.8)
[2017-09-08 06:41] LABS: CREATININE 1.13 mg/dL (0.55-1.02); POTASSIUM 4.6 mmol/L (3.5-5.1)
[2017-09-08 08:00] VITALS: BP 152/61
--- NOTE | 2017-09-08 09:25 | NUR ---
Contacted patients son Stanislav regarding discharge plans. He stated patient lives at home with he and his . they have a hospital bed and home oxygen. Patient stated they did have [facility] nurse, PT and aides but [facility] discharged her. He would like to have those services reinstated. His Jarek has also started paperwork to have aides come into the home daily, but this process hasn't been started yet. He asked I call Jarek since she manages all of this. I called and was unable to contact, left voicemail to return phone call. Jarek [phone]. Will need new home health order for nurse, PT and aides prior to discharge.
[2017-09-08 12:00] VITALS: BP 157/62
[2017-09-08] MEDS ORDERED: PREDNISONE10 MG PO (12:04)
[2017-09-08] MEDS ORDERED: AZITHROMYCIN500 M1 PO (12:04)
--- NOTE | 2017-09-08 12:30 | NUR ---
Patient being discharged to home with [facility]. Received order, faxed clincals to
[2017-09-08] MEDS ORDERED: DOXYCYCLINE100 M3 PO (13:53)
--- NOTE | 2017-09-08 14:00 | NUR ---
Discharge instructions reviewed with patient/family. Patient receptive and verbalizes understanding. Follow-up care arranged. Written instructions given to patient/family. ANGIE CARDOSO
== END 2017-09-08 14:00 | disposition home health service (06) | DRG 190 ==
LOC: ED 02:21 → 4E 03:41 → EDHOLD 03:41 → ICCU 03:55 → 4E 16:41
PROVIDERS: Emergency Medicine; Emergency Medicine Emergency Medical Services; Hospitalist; Student in an Organized Health Care Education/Training Program; ADMIT Internal Medicine
DX: J44.0 Chronic obstructive pulmonary disease with (acute) lower respiratory infection (principal); N17.0 Acute kidney failure with tubular necrosis; J96.11 Chronic respiratory failure with hypoxia; D68.9 Coagulation defect, unspecified; E11.22 Type 2 diabetes mellitus with diabetic chronic kidney disease; E87.0 Hyperosmolality and hypernatremia; N18.3 Chronic kidney disease, stage 3 (moderate); E66.01 Morbid (severe) obesity due to excess calories; I50.32 Chronic diastolic (congestive) heart failure; I13.0 Hypertensive heart and chronic kidney disease with heart failure and stage 1 through stage 4 chronic kidney disease, or unspecified chronic kidney disease; Z68.41 Body mass index [BMI] 40.0-44.9, adult; J44.1 Chronic obstructive pulmonary disease with (acute) exacerbation; D64.9 Anemia, unspecified; E87.8 Other disorders of electrolyte and fluid balance, not elsewhere classified; G30.9 Alzheimer's disease, unspecified; F02.80 Dementia in other diseases classified elsewhere, unspecified severity, without behavioral disturbance, psychotic disturbance, mood disturbance, and anxiety; F17.210 Nicotine dependence, cigarettes, uncomplicated; F41.9 Anxiety disorder, unspecified; I25.10 Atherosclerotic heart disease of native coronary artery without angina pectoris; F32.9 Major depressive disorder, single episode, unspecified; I11.0 Hypertensive heart disease with heart failure; T45.515A Adverse effect of anticoagulants, initial encounter; K21.9 Gastro-esophageal reflux disease without esophagitis; J20.9 Acute bronchitis, unspecified; K08.409 Partial loss of teeth, unspecified cause, unspecified class; G47.33 Obstructive sleep apnea (adult) (pediatric); I48.0 Paroxysmal atrial fibrillation; Z87.01 Personal history of pneumonia (recurrent); Z88.2 Allergy status to sulfonamides; Z79.01 Long term (current) use of anticoagulants; Z79.899 Other long term (current) drug therapy; Z90.710 Acquired absence of both cervix and uterus; Z84.89 Family history of other specified conditions; Z80.3 Family history of malignant neoplasm of breast; Z82.3 Family history of stroke; Z83.3 Family history of diabetes mellitus; Z82.49 Family history of ischemic heart disease and other diseases of the circulatory system

== ENCOUNTER 2017-09-22 14:16 | Inpatient (IN) | payer MEDICARE, OTHER ==
[~2017-09-22] VITALS: Ht 142.2 cm; Wt 81.6 kg
--- NOTE | ~2017-09-22 | PROC NOTE ---
[place], [place] PROCEDURE NOTE [id number] UN[facility] #: [id number] ROOM: 502 DOCTOR: VICTOR MANUEL MARTINEZ MD,[place] BIRTHDATE: [birth year] DOS: 09/24/2017 PREOPERATIVE DIAGNOSES: The patient with evidence of severe leukocytosis with ineffective cough without sputum expectoration, recurrent hospitalization for exacerbation of chronic obstructive pulmonary disease. POSTOPERATIVE DIAGNOSES: Severe impacted mucus plug with noted purulent secretion mainly in the lower lobe endobronchial tree bilaterally. COMPLICATIONS: None. BLOOD LOSS: None. PROCEDURE DESCRIPTION: Informed consent obtained for this patient. The patient brought to the OR and placed in supine position. Conscious sedation administered by the Anesthesia Department. After achieving proper sedation, airway introduced into the mouth. Bronchoscope advanced to the airway into laryngeal area. Epiglottis and vocal cords were seen. The bronchoscope advanced to the vocal cord and tracheal lumen. The tracheal lumen was identified. Moderate amount of thick mucus secretion present in tracheal lumen, which was suctioned out with the help of normal saline wash and sent for the cultures. The patient was noted with moderate thick mucus impaction associated ____ which was present mainly in the lower lobe bronchi bilaterally, which was suctioned out with the help of normal saline wash and sent for cultures. Procedure was well tolerated by the patient without any difficulty. Transient hypoxia noted which was corrected with the withdrawal of the scope and additional supplementation of the oxygen. Postoperative findings were discussed in detail with the patient's family members. AGUUSTO RUSH MD CM:PROCNOTE:PROCEDURE NOTE [id number] AUGUSTO MARTINEZ MD
--- NOTE | ~2017-09-22 | PR ---
[place], [place] PROGRESS NOTE NAME: HALINA CORTES [facility] #: [id number] UNIT #: [id number] ROOM: 502 DOCTOR: VICTOR MANUEL MARTINEZ MD,[place] BIRTHDATE: [birth year] DOS: 09/27/2017 SUBJECTIVE: She has been noted comfortably resting lying in the bed. Denies symptoms of chest pain. Coughing has been noted minimal. At the present time shortness of breath has been improving. OBJECTIVE: VITAL SIGNS: For the patient which has been recorded showed normal temperature, respiratory rate 20, heart rate 55, blood pressure 159/51. The pulse oxygen saturation of the patient on 3 liters nasal cannula is 96% saturation. HEENT: Examination shows chronic obesity. NECK: Short and obese. CARDIOVASCULAR: S1, S2 audible. LUNGS: Moderate decreased breath sounds. There was no wheezing or crackles. ABDOMEN: Chronic obesity. IMPRESSION: 1. The patient with gradual resolution of the acute pneumonia. The patient has been continued with improving acute respiratory failure and exacerbation of chronic obstructive pulmonary disease. 2. Debility. 3. History of sleep apnea disorder, not adherent with the treatment. PLAN OF TREATMENT: Decrease the Solu-Medrol 40 mg daily. The patient was awaiting the noninvasive ventilator arrangements to be made for the patient prior to the home discharge. Otherwise, no new change in the treatment from the Pulmonary standpoint will be necessary. In the meantime, continue other supportive therapy, plan of management and care plan. Usual care. AUGUSTO RUSH MD CM:MONICA [id number] AUGUSTO MARTINEZ MD 09/27/17 2221 interface
--- NOTE | ~2017-09-22 | PR ---
[place], [place] PROGRESS NOTE NAME: HALINA CORTES [facility] #: [id number] UNIT #: [id number] ROOM: 502 DOCTOR: VICTOR MANUEL MARTINEZ MD,[place] BIRTHDATE: [birth year] DOS: 09/25/2017 PULMONARY PROGRESS NOTE SUBJECTIVE: She has a bronchoscopy done yesterday for the patient resulted in reduction of the cough and general improvement in respiratory status, shortness breath was also noted decreased. Denies any symptoms of chest pain. There were no symptoms of gastroesophageal reflux. Denies any headache. Denies any skin rashes or edema of the lower extremities. OBJECTIVE: VITAL SIGNS: For the patient this morning, normal temperature, respiratory 20, heart rate 64-52, blood pressure 147/55-142/58. Pulse oxygen saturation 3 liters nasal cannula 98% saturation maintained. HEENT: Remains on to be unchanged. NECK: Supple. CARDIOVASCULAR SYSTEM: S1, S2 is audible. LUNGS: The patient noted general reduction in breath sounds with expiratory wheezing and basilar crackles. ABDOMEN: Soft, nontender and obese. EXTREMITIES: Without any edema, clubbing, cyanosis. SKIN: Visible skin. No lesions or rashes. MUSCULOSKELETAL SYMPTOM: No deformities. GENITOURINARY SYSTEM: Intact. LABORATORY DATA: BMP for the patient, the labs today, BUN 26, creatinine 1.12, glucose 131, CO2 35. CBC this morning, WBC count 22.7, hemoglobin 10.7, hematocrit 34.2, platelet count of 205,000. Gram stain of the bronchial washings of yesterday, many white blood cells with moderate epithelial cells, moderate gram-positive cocci in pairs, chains and clusters. IMPRESSION: 1. Acute bilateral pneumonia for this patient, which has been noted ongoing acute exacerbation of chronic obstructive pulmonary disease, severe leukocytosis. 2. Uncontrolled hyperglycemia secondary to use of corticosteroids, the blood glucose yesterday noted elevated at 469. 3. Overall debility for the patient as well. 4. Past history of nicotine abuse. 5. The patient with acute chronic metabolic alkalosis secondary to hypercarbia and chronic hypoxic respiratory failure. PLAN OF MANAGEMENT: Monitor culture results. Gradual reduction of corticosteroids. Maximizing ____ diabetes mellitus. The patient has been resumed her previous dose of Xarelto for atrial fibrillation and chronic anticoagulation. Continue physical therapy and occupational therapy. Usual care, plan of management. The noninvasive ventilator prescription has been sent to the [employer] for authorization from the insurance and to be used at home. [place], [place] PROGRESS NOTE NAME: DAYTON CORTESJORGE Perdomo UNIT #: [id number] ROOM: [facility] DOCTOR: VICTOR MANUEL MARTINEZ MD,[place] BIRTHDATE: [birth year] AUGUSTO RUSH MD CM:PNTRANS [id number] AUGUSTO MARTINEZ MD 09/26/17 0437 interface
--- NOTE | ~2017-09-22 | PR ---
[place], [place] PROGRESS NOTE NAME: HALINA CORTES [facility] #: [id number] UNIT #: [id number] ROOM: 502 DOCTOR: VICTOR MANUEL MARTINEZ MD,[place] BIRTHDATE: [birth year] DOS: 09/24/2017 SUBJECTIVE: The patient was seen and examined on 09/24/2017. 18. She remains n.p.o. past midnight. The patient has not been noted any hemodynamic changes at this time. The coughing remains persistent, not resolving. Shortness of breath was not present at rest, occurs with exertion. There were symptoms of chest pain or hemoptysis. The patient denies edema or pain of the lower extremities. Denies any dizziness. The confusion has been noted somewhat better. She has used the BiPAP as ordered last night. This morning, she was using oxygen supplementation with the nasal cannula. OBJECTIVE: VITAL SIGNS: Recorded shows the temperature noted as normal. Respiratory rate was noted as 18, heart rate of 58-83, blood pressure 152/60-134/50. HEENT: Shows no acute change. NECK: Supple. CARDIOVASCULAR: S1, S2, audible. LUNGS: The patient was noted without any crackles. Expiratory wheezing was present. ABDOMEN: Soft, nontender. EXTREMITIES: The patient was noted without any acute cyanosis. Mild edema of the ankles were noted. Visible skin. No lesions or rashes. MUSCULOSKELETAL: No deformities. CENTRAL NERVOUS SYSTEM: Nonfocal. Cranial nerves intact. LABORATORY DATA: CBC: This morning, WBC count 20.6, hemoglobin 11.1, hematocrit 35.9, platelet count 202,000, 88% segmented neutrophils. CMP: BUN 26, creatinine 1.13, glucose 236, CO2 36, albumin 2.9. CT scan of the chest which was done without contrast ordered by me, was personally reviewed and compared to the previous CT scan of the chest of 09/10/2017. Patchy infiltration with nodular opacity was still present in the lungs bilaterally, but it has been decreased in the size ____ as compared to the CT scan of the chest on 09/10/[address] scan of the chest 09/23/2017. The mediastinal structure was noted suboptimally assessed for this patient; however, there has not been any significant lymphadenopathy visible. IMPRESSION: 1. The patient who has been currently noted with persistent coughing, bilateral pulmonary infiltration, persistent leukocytosis with possibility of inadequate improvement in the respiratory status. 2. 3 mm ____ noted in the right upper lobe as well. PLAN OF TREATMENT: Proceed with bronchoscopy as planned. Continue antibiotic, as previously bronchodilators, oxygen supplementation, Solu-Medrol. Any adjust in medication if necessary will be done after bronchoscopy. Continue maximizing medical and steroid-induced hyperglycemia with history of diabetes mellitus. Supportive care, plan of management and other care. [place], [place] PROGRESS [id number] #: [id number] ROOM: [facility] DOCTOR: AUGUSTO KENNEY MD BIRTHDATE: [birth year] AUGUSTO RUSH MD CM:PNTRANS [phone] AUGUSTO MARTINEZ MD 09/25/17221 interface
--- NOTE | ~2017-09-22 | CON ---
[place], [place] REPORT OF CONSULTATION NAME: HALINA CORTES [facility] #: [id number] UNIT #: [id number] ROOM: 502 DOCTOR: VICTOR MANUEL MARTINEZ MDA[place]USTO BIRTHDATE: [birth year] DOS: 09/23/2017 CONSULTATION REQUESTED BY: Hospitalist Service. REASON FOR CONSULTATION: Assessment of current increased respiratory symptoms with respiratory failure. HISTORY OF PRESENT ILLNESS: A 72-year-old white female who has been admitted to the hospital. She has been admitted to the hospital several times because of the acute exacerbation of COPD with acute on chronic hypercapnic and hypoxic respiratory failure. The patient has been admitted to the hospital recently again from 09/10/2017 until 09/15/2017 and discharged to home. The patient was living with her family members. The patient has been brought back to the hospital on 09/22/2017 as the patient was reported having symptoms of shortness of breath and also described with abnormal arterial blood gases results. She has been admitted to the hospital for further medical management. The patient was noted comfortable at this time, sitting on the chair. She has not been noted symptoms of chest pain or any hemoptysis. She has not been noted and symptoms of hemoptysis. He has been noted with increased symptoms of drowsiness, also confusional status as per family members who were present in the room with the patient. She has not reported any symptoms of sputum expectoration of cough or reported any wheezing which was described to be audible. REVIEW OF SYSTEMS: CONSTITUTIONAL SYMPTOMS: The patient limited because of the patient's history of dementia reported as fatigue for this patient without any abnormal weight loss, fever or chills. EYES: Denies any burning, redness, or tenderness. EARS, NOSE, THROAT SYMPTOMS: Denies sore throat, hoarseness, otalgia, postnasal drainage or epistaxis. CARDIOVASCULAR: Denies angina pain, edema or pain of the lower extremities. GASTROINTESTINAL: Dysphagia, nausea, vomiting, diarrhea, abdominal pain, hematemesis, melena, or hematochezia reported. GENITOURINARY SYMPTOMS: No dysuria, suprapubic pain or hematuria. MUSCULOSKELETAL: Denies any acute joint pain, redness, or tenderness. SKIN: Denies abnormal lesions or rashes. CENTRAL NERVOUS SYSTEM: No dizziness, headache, diplopia, syncopal episode, seizure activity. Remaining systems were reviewed. They were noted all negative. PAST MEDICAL HISTORY: 1. Noted with history of COPD. 2. Recurrent hospitalization related to exacerbation of COPD, hypercapnia 3 or 4 time patient in the last year. 3. History of chronic hypercapnic respiratory failure and acute chronic hypoxic respiratory failure. 4. 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 5. Seizure disorder. [place], [place] REPORT OF CONSULTATION [id number] #: [id number] ROOM: [facility] DOCTOR: LAKIA KENNEY MDM BIRTHDATE: [birth year] 6. Type 2 diabetes mellitus. 7. General anxiety disorder. 8. Essential hypertension. 9. Atrial fibrillation. 10. Obstructive sleep apnea disorder, noncompliant with the treatment. 11. Hypercoagulable status. 12. History of chronic obesity. 13. Osteoarthritis. 14. Acute congestive heart failure, diastolic dysfunction. PAST SURGICAL HISTORY: 1. Hysterectomy. 2. Cardiac catheterization and coronary stents insertion. SOCIAL HISTORY: The patient is currently living with her family members. The patient has been noted with heavy tobacco use from teenager, pack of cigarettes per day for this patient, which was gradually decreased. The patient has not been reported any tobacco use since 08/2017 last admission. Denies alcohol use or illicit drugs. FAMILY HISTORY: Father at age of 72 years with complication related to the liver disease. Mother 60 years old, complication related to metastatic breast cancer. MEDICATIONS: Current medication list of the patient noted use of citalopram, Aricept, Xarelto, Solu-Medrol 40 mg q.8 hours, sliding scale insulin, DuoNeb q.4h., vitamin D, Lasix, Victoza shots, aspirin, glipizide, famotidine, Lipitor, Dulera, lisinopril, doxycycline and others. DRUG ALLERGIES: Reported allergy to the SULFA DRUGS. PHYSICAL EXAMINATION: GENERAL: A 72-year-old female who has been currently sitting on the bed along with the several family members in the room on the chair. Height of 4 feet 8 inches, weight 180 pounds, BMI 40.3. reported. VITAL SIGNS: For the patient which has been recorded shows normal temperature, respiratory rate 20-18, heart rate 52-59 for this patient from admission, blood pressure 180/71-132/72 recorded this morning. Pulse oxygen saturation 3 liters nasal cannula was recorded 100%. HEENT: Examination shows head was atraumatic. Eyes nonicterus. NECK: Supple. CARDIOVASCULAR: S1, S2 is audible without any added sounds. LUNGS: Noted with moderate reduced breath sounds bilaterally without any wheezing or crackles. ABDOMEN: Soft with chronic obesity. Bowel sounds present. EXTREMITIES: The patient with obesity without edema, clubbing, cyanosis. CENTRAL NERVOUS SYSTEM: Cranial nerves 2-12 intact. MUSCULOSKELETAL: No deformities. SKIN: No lesions or rashes. [place], [place] REPORT OF CONSULTATION NAME: HALINA CORTES UNIT #: [id number] ROOM: 502 DOCTOR: LAKIA KENNEY MDM BIRTHDATE: [birth year] LABORATORY DATA: PT/INR, PTT on admission yesterday were normal. CBC yesterday on admission WBC count 19.7, hemoglobin 11.2, hematocrit 36.4, platelet count 198,000; 90% segmented neutrophils. BMP yesterday on admission, BUN 22, creatinine 1.22, glucose 266. CO2 of 34. BNP 3098, normal troponin yesterday as well. The other additional 2 troponin of patient yesterday was noted as normal. CBC of the patient today, WBC count 22.2, hemoglobin 11.3, hematocrit 36.3, platelet count of 2000 with 24% lymphocytes. CMP of the patient that was done this morning, BUN 26, creatinine 1.13. CO2 of 37. Arterial blood gases outpatient shows pH of 7.39, pCO2 58.1, pO2 of 61.0. The amount of the oxygen use for the patient's current blood gas was unknown. Chest x-ray of the patient that was done, 1 view of the patient was reviewed for this patient shows reduction of previously noted infiltration in the right lung. IMPRESSION: 1. The patient will be currently admitted to the hospital noted with confusional status with a past pneumonia that has been treated with acute exacerbation of COPD and history of chronic hypercapnic respiratory failure. 2. Leukocytosis. The patient was still observed, which has been noted worsened for the patient as compared with the previous. CBC of yesterday. Underlying nonresolving pulmonary infection. The patient other etiology would be considered in the differential diagnosis. 3. Chronic metabolic alkalosis secondary to hypercarbia and acute recurrent hospitalization related to the acute exacerbation of COPD as well. History of chronic tobacco use until last week of 08/2017 reported by the family members. 4. History of type 2 diabetes mellitus, which are noted uncontrolled because use of corticosteroids as well and chronic anticoagulant therapy. PLAN OF MANAGEMENT: CT scan of the chest will be ordered to further assess because of multifocal pneumonia noted previously. I will consider doing a bronchoscopy for further assessment to rule out any pulmonary infection, which are nonexistent not resolved in current treatment. Solu-Medrol, the patient has been started 40 mg q.8 hours. The dose of the patient certainly be decreased as there has not been significant wheezing present. The patient will benefit for noninvasive ventilator such as Trilogy ventilator to reduce the recurrent hospitalization, improve her quality of life as well. The sputum for Gram stain, culture will be obtained. Additional treatment changes will be done based on progression of the illness. Usual care, other supportive therapy, plan of management. Possibility of noncompliance with the medications certainly at home can be completely excluded. [place], [place] REPORT OF CONSULTATION NAME: HALINA CORTES UNIT #: [id number] ROOM: [facility] DOCTOR: AUGUSTO KENNEY MD BIRTHDATE: [birth year] AUGUSTO RUSH MD CM:CONSTR:REPORT OF CONSULTATION 1339 09/23/17 1905 interface
--- NOTE | ~2017-09-22 | PR ---
[place], [place] PROGRESS NOTE NAME: HALINA CORTES [facility] #: [id number] UNIT #: [id number] ROOM: 502 DOCTOR: VICTOR MANUEL MARTINEZ MD,[place] BIRTHDATE: [birth year] DOS: 09/26/2017 SUBJECTIVE: She has been noted comfortable at this time, resting on the bed, shows continued progressive reduction and resolution of the acute symptoms of cough and shortness of breath. The wheezing has been described to be absent. The patient denies symptoms of chest pain or hemoptysis. OBJECTIVE: VITAL SIGNS: For the patient shows normal temperature, respiratory rate 20, heart rate 94, blood pressure 135/68. The pulse oxygen saturation for the patient noted on 3 liters nasal cannula 92% saturation. HEENT: Chronic obesity. NECK: Supple. CARDIOVASCULAR: S1, S2 audible. LUNGS: Without any wheezing or crackles at present time. Breaths are noted moderately decreased bilaterally. ABDOMEN: Soft, nontender. IMPRESSION: 1. The patient with progressive resolution of the acute pneumonia. The patient acute bronchitis and exacerbation of chronic obstructive pulmonary disease. 2. Acute on chronic hypercapnic hypoxic respiratory failure, recurrent hospitalization. PLAN OF TREATMENT: Possible discharge home to be considered to home with physical therapy, occupation therapy or to the halfway facility. The noninvasive ventilator orders has been already made, authorization remains in progress from the insurance. AUGUSTO RUSH MD CM:PNTRANS [phone] AUGUSTO MARTINEZ MD 09/27/17130 interface
--- NOTE | ~2017-09-22 | PR ---
[place], [place] PROGRESS NOTE NAME: HALINA CORTES [facility] #: [id number] UNIT #: [id number] ROOM: 502 DOCTOR: VICTOR MANUEL MARTINEZ MD,[place] BIRTHDATE: [birth year] DOS: 09/28/2017 SUBJECTIVE: She has been noted comfortable at this time, resting on the bed. Denies symptoms of chest pain, shortness of breath, the other symptoms have been progressively resolving. The oxygen supplementation continued this time. The patient continue receive corticosteroids. OBJECTIVE: VITAL SIGNS: Normal temperature, respiratory rate 18, heart rate 57, blood pressure 120/40. Intake for the patient is 1500 mL, output 1825 mL. Pulse oxygen 3 liters nasal cannula 98% saturation. HEENT: Examination shows head was atraumatic. Eyes nonicterus. NECK: Supple. CARDIOVASCULAR: S1, S2 is audible. LUNGS: The patient was noted without any wheezing or crackles. ABDOMEN: Soft, nontender and obese. IMPRESSION: The patient who has been currently noted with progressive resolution of the acute on chronic hypoxic respiratory failure, exacerbation of chronic obstructive pulmonary disease. History of chronic obesity, status post recent therapeutic bronchoscopy. PLAN OF MANAGEMENT: From the pulmonary standpoint, the patient could be considered discharge to home with health therapy for this patient at this time. Other plan of management, the patient has previously made. Tapering dose of prednisone. Use of home medication. COPD, abstinence for the tobacco use was recommended. AUGUSTO RUSH MD CM:PNTRANS [phone] AUGUSTO MARTINEZ MD 09/28/17 223 interface
--- NOTE | ~2017-09-22 | EKG ---
[place], [place] ELECTROCARDIOGRAM REPORT NAME: HALINA CORTES UNIT #: [id number] ROOM: 502 DOCTOR: VICTOR MANUEL MARTINEZ MD,[place] BIRTHDATE: [birth year] DOS: 09/22/2017 The electrocardiogram was done at 3:34 p.m. on 09/22/2017. Sinus bradycardia noted. Heart rate of 49 beats per minute. Prolonged QT interval of the patient was noted. AUGUSTO RUSH MD CM:EKGRPT:ELECTROCARDIOGRAM REPORT 36 02 AUGUSTO MARTINEZ MD
[~2017-09-22 14:16] MED LIST changes: -VIBRAMYCIN100 MG PO
[2017-09-22 14:27] VITALS: BP 150/52
[2017-09-22 15:27] LABS: HEMATOCRIT 36.4 % (37.0-47.0); HEMOGLOBIN 11.2 g/dl (12.0-16.0); MEAN CELL VOLUME 88.1 fl (81.0-99.0); MEAN CORPUSCULAR HGB 27.1 pg (27.0-31.0); MEAN CORPUSCULAR HGB CONC 30.8 g/dl (33.0-37.0); MEAN PLATELET VOLUME 9.6 fl (9.6-12.3); PLATELET COUNT AUTOMATED 198 10*3/uL (130-400); RED BLOOD COUNT 4.13 10*6/uL (4.10-5.10); RED CELL DISTRI WIDTH 13.4 % (0-14.5); WHITE BLOOD COUNT 19.7 10*3/uL (4.8-10.8)
[2017-09-22 15:35] LABS: ACT PARTIAL THROMBO TIME 32.3 SECONDS (20.8-31.5); INTERNATIONAL NORM RATIO 1.3 (2.0-3.5)
[2017-09-22 15:49] LABS: TOTAL CELLS COUNTED 100 #CELLS
[2017-09-22 15:51] LABS: PLATELET SUFFICIENCY NORMAL (NORMAL)
[2017-09-22 15:54] LABS: CREATININE 1.22 mg/dL (0.55-1.02); POTASSIUM 4.8 mmol/L (3.5-5.1)
[2017-09-22 15:58] LABS: TROPONIN I 0.017 ng/ml (<0.045)
[2017-09-22 17:14] VITALS: BP 187/62
[2017-09-22 17:58] VITALS: BP 124/84
[2017-09-22 18:33] VITALS: BP 191/84
[2017-09-22 20:00] VITALS: BP 134/65
[2017-09-23] VITALS (9 sets, daily range): BP systolic 106–180; BP diastolic 48–76
[2017-09-23 07:32] LABS: HEMATOCRIT 36.3 % (37.0-47.0); HEMOGLOBIN 11.3 g/dl (12.0-16.0); MEAN CELL VOLUME 87.5 fl (81.0-99.0); MEAN CORPUSCULAR HGB 27.2 pg (27.0-31.0); MEAN CORPUSCULAR HGB CONC 31.1 g/dl (33.0-37.0); MEAN PLATELET VOLUME 9.6 fl (9.6-12.3); PLATELET COUNT AUTOMATED 200 10*3/uL (130-400); RED BLOOD COUNT 4.15 10*6/uL (4.10-5.10); RED CELL DISTRI WIDTH 13.5 % (0-14.5); WHITE BLOOD COUNT 22.2 10*3/uL (4.8-10.8)
[2017-09-23 07:58] LABS: ATYPICAL LYMPHS 6 % (0-0); PLATELET SUFFICIENCY NORMAL (NORMAL); TOTAL CELLS COUNTED 100 #CELLS
[2017-09-23 08:02] LABS: ALBUMIN 3.1 gm/dl (3.1-4.5); CREATININE 1.13 mg/dL (0.55-1.02); POTASSIUM 4.3 mmol/L (3.5-5.1); TOTAL PROTEIN 5.6 gm/dL (6.4-8.2)
[2017-09-24] VITALS (8 sets, daily range): BP systolic 131–153; BP diastolic 48–67
[2017-09-24 11:47] LABS: HEMATOCRIT 35.9 % (37.0-47.0); HEMOGLOBIN 11.1 g/dl (12.0-16.0); MEAN CELL VOLUME 86.7 fl (81.0-99.0); MEAN CORPUSCULAR HGB 26.8 pg (27.0-31.0); MEAN CORPUSCULAR HGB CONC 30.9 g/dl (33.0-37.0); MEAN PLATELET VOLUME 9.6 fl (9.6-12.3); PLATELET COUNT AUTOMATED 202 10*3/uL (130-400); RED BLOOD COUNT 4.14 10*6/uL (4.10-5.10); RED CELL DISTRI WIDTH 13.6 % (0-14.5); WHITE BLOOD COUNT 20.6 10*3/uL (4.8-10.8)
[2017-09-24 12:17] LABS: ATYPICAL LYMPHS 4 % (0-0); PLATELET SUFFICIENCY NORMAL (NORMAL); TOTAL CELLS COUNTED 100 #CELLS
[2017-09-24 12:23] LABS: ALBUMIN 2.9 gm/dl (3.1-4.5); CREATININE 1.13 mg/dL (0.55-1.02); POTASSIUM 4.8 mmol/L (3.5-5.1); TOTAL PROTEIN 5.7 gm/dL (6.4-8.2)
[2017-09-25] VITALS: BP 132/52
[2017-09-25 07:07] LABS: BASO % 0.1 % (0.0-1.0); HEMATOCRIT 34.2 % (37.0-47.0); HEMOGLOBIN 10.7 g/dl (12.0-16.0); LYMPH % 13.4 % (27.0-41.0); MEAN CORPUSCULAR HGB 27.2 pg (27.0-31.0); MEAN CORPUSCULAR HGB CONC 31.3 g/dl (33.0-37.0); MEAN PLATELET VOLUME 9.9 fl (9.6-12.3); MONO # 1.2 10*3/uL (0.1-1.0); MONO % 5.3 % (3.0-9.0); NEUT # 18.2 10*3/uL (2.3-7.9); NEUT % 80.3 % (47.0-73.0); PLATELET COUNT AUTOMATED 205 10*3/uL (130-400); RED BLOOD COUNT 3.93 10*6/uL (4.10-5.10); RED CELL DISTRI WIDTH 13.7 % (0-14.5); WHITE BLOOD COUNT 22.7 10*3/uL (4.8-10.8)
[2017-09-25 07:36] LABS: CREATININE 1.12 mg/dL (0.55-1.02)
[2017-09-25 08:00] VITALS: BP 142/58
[2017-09-25 12:00] VITALS: BP 147/55
[2017-09-25 16:00] VITALS: BP 153/53
[2017-09-25 16:08] LABS: ACID FAST SMEAR Negative (.); ACID FAST SPEC PROCESSING Concentration (.)
[2017-09-25 20:00] VITALS: BP 126/56
[2017-09-26] VITALS: BP 160/50
[2017-09-26 08:00] VITALS: BP 141/61
[2017-09-26 12:00] VITALS: BP 136/77
[2017-09-26 16:00] VITALS: BP 135/68
[2017-09-26 20:00] VITALS: BP 149/58
[2017-09-27] VITALS: BP 155/56
[2017-09-27 07:09] LABS: ALBUMIN 2.8 gm/dl (3.1-4.5); ALKALINE PHOSPHATASE 53 U/L (45-117); BUN 28 mg/dl (7-24); CHLORIDE 98 mmol/L (98-107); CREATININE 1.06 mg/dL (0.55-1.02); POTASSIUM 4.5 mmol/L (3.5-5.1); SGOT/AST 10 IU/L (3-35); SGPT/ALT 20 U/L (12-78); SODIUM 136 mmol/L (136-145); TOTAL PROTEIN 5.2 gm/dL (6.4-8.2)
[2017-09-27 08:00] VITALS: BP 160/48
[2017-09-27 08:22] LABS: BASO % 0.1 % (0.0-1.0); HEMATOCRIT 35.1 % (37.0-47.0); HEMOGLOBIN 11.2 g/dl (12.0-16.0); LYMPH # 1.4 10*3/uL (1.3-4.4); LYMPH % 7.5 % (27.0-41.0); MEAN CELL VOLUME 85.2 fl (81.0-99.0); MEAN CORPUSCULAR HGB 27.2 pg (27.0-31.0); MEAN CORPUSCULAR HGB CONC 31.9 g/dl (33.0-37.0); MEAN PLATELET VOLUME 9.8 fl (9.6-12.3); MONO # 0.7 10*3/uL (0.1-1.0); MONO % 3.8 % (3.0-9.0); NEUT # 16.2 10*3/uL (2.3-7.9); NEUT % 87.4 % (47.0-73.0); PLATELET COUNT AUTOMATED 217 10*3/uL (130-400); RED BLOOD COUNT 4.12 10*6/uL (4.10-5.10); RED CELL DISTRI WIDTH 14.1 % (0-14.5); WHITE BLOOD COUNT 18.5 10*3/uL (4.8-10.8)
[2017-09-27 12:00] VITALS: BP 159/51
[2017-09-27 16:00] VITALS: BP 154/62
[2017-09-27 20:00] VITALS: BP 106/57
[2017-09-28] VITALS: BP 160/45
[2017-09-28 07:00] LABS: HEMATOCRIT 33.8 % (37.0-47.0); HEMOGLOBIN 10.6 g/dl (12.0-16.0); MEAN CELL VOLUME 86.7 fl (81.0-99.0); MEAN CORPUSCULAR HGB 27.2 pg (27.0-31.0); MEAN CORPUSCULAR HGB CONC 31.4 g/dl (33.0-37.0); MEAN PLATELET VOLUME 9.8 fl (9.6-12.3); PLATELET COUNT AUTOMATED 223 10*3/uL (130-400); RED CELL DISTRI WIDTH 14.1 % (0-14.5); WHITE BLOOD COUNT 15.7 10*3/uL (4.8-10.8)
[2017-09-28 07:33] LABS: CHLORIDE 99 mmol/L (98-107); POTASSIUM 4.3 mmol/L (3.5-5.1); SODIUM 140 mmol/L (136-145)
[2017-09-28 07:40] LABS: PLATELET SUFFICIENCY NORMAL (NORMAL); TOTAL CELLS COUNTED 100 #CELLS
[2017-09-28 07:46] LABS: BUN 25 mg/dl (7-24); CREATININE 1.08 mg/dL (0.55-1.02)
[2017-09-28 08:00] VITALS: BP 120/40
[2017-09-28 12:00] VITALS: BP 96/48
[2017-09-28] MEDS ORDERED: VIBRAMYCIN100 MG PO (13:37)
[2017-09-28] MEDS ORDERED: PREDNISONE10 MG PO (13:37)
== END 2017-09-28 16:07 | disposition home health service (06) | DRG 193 ==
LOC: ED 14:16 → EDHOLD 16:42 → 5E 16:42
PROVIDERS: Emergency Medicine; Family Medicine Adult Medicine; Internal Medicine; Internal Medicine Critical Care Medicine; Internal Medicine Hospice and Palliative Medicine
PROC: 5A09357 Assistance with Respiratory Ventilation, Less than 24 Consecutive Hours, Continuous Positive Airway Pressure (ICD-10-PCS; principal; 2017-09-23)
PROC: 0BC18ZZ Extirpation of Matter from Trachea, Via Natural or Artificial Opening Endoscopic (ICD-10-PCS; 2017-09-24)
PROC: 0BCB8ZZ Extirpation of Matter from Left Lower Lobe Bronchus, Via Natural or Artificial Opening Endoscopic (ICD-10-PCS; 2017-09-24)
PROC: 5A09357 Assistance with Respiratory Ventilation, Less than 24 Consecutive Hours, Continuous Positive Airway Pressure (ICD-10-PCS; 2017-09-24)
PROC: 0BC68ZZ Extirpation of Matter from Right Lower Lobe Bronchus, Via Natural or Artificial Opening Endoscopic (ICD-10-PCS; 2017-09-24)
PROC: 5A09357 Assistance with Respiratory Ventilation, Less than 24 Consecutive Hours, Continuous Positive Airway Pressure (ICD-10-PCS; 2017-09-25)
PROC: 5A09357 Assistance with Respiratory Ventilation, Less than 24 Consecutive Hours, Continuous Positive Airway Pressure (ICD-10-PCS; 2017-09-26)
DX: J18.1 Lobar pneumonia, unspecified organism (principal); J96.22 Acute and chronic respiratory failure with hypercapnia; J96.21 Acute and chronic respiratory failure with hypoxia; E44.0 Moderate protein-calorie malnutrition; E87.3 Alkalosis; D68.69 Other thrombophilia; T17.590A Other foreign object in bronchus causing asphyxiation, initial encounter; N18.3 Chronic kidney disease, stage 3 (moderate); E11.22 Type 2 diabetes mellitus with diabetic chronic kidney disease; E11.65 Type 2 diabetes mellitus with hyperglycemia; J44.0 Chronic obstructive pulmonary disease with (acute) lower respiratory infection; J44.1 Chronic obstructive pulmonary disease with (acute) exacerbation; Z68.41 Body mass index [BMI] 40.0-44.9, adult; I50.32 Chronic diastolic (congestive) heart failure; M15.9 Polyosteoarthritis, unspecified; Z66 Do not resuscitate; Z51.5 Encounter for palliative care; E66.01 Morbid (severe) obesity due to excess calories; I48.0 Paroxysmal atrial fibrillation; Z99.81 Dependence on supplemental oxygen; G47.33 Obstructive sleep apnea (adult) (pediatric); I25.10 Atherosclerotic heart disease of native coronary artery without angina pectoris; F17.210 Nicotine dependence, cigarettes, uncomplicated; G30.9 Alzheimer's disease, unspecified; F02.80 Dementia in other diseases classified elsewhere, unspecified severity, without behavioral disturbance, psychotic disturbance, mood disturbance, and anxiety; F32.9 Major depressive disorder, single episode, unspecified; D64.9 Anemia, unspecified; E55.9 Vitamin D deficiency, unspecified; T38.0X5A Adverse effect of glucocorticoids and synthetic analogues, initial encounter; J20.9 Acute bronchitis, unspecified; X58.XXXA Exposure to other specified factors, initial encounter; G40.909 Epilepsy, unspecified, not intractable, without status epilepticus; F41.1 Generalized anxiety disorder; Z95.5 Presence of coronary angioplasty implant and graft; Z90.710 Acquired absence of both cervix and uterus; Z79.51 Long term (current) use of inhaled steroids; Z79.82 Long term (current) use of aspirin; Y92.89 Other specified places as the place of occurrence of the external cause; Y93.89 Activity, other specified; Y99.8 Other external cause status; Z71.6 Tobacco abuse counseling; Z79.84 Long term (current) use of oral hypoglycemic drugs; Z79.899 Other long term (current) drug therapy; Z88.2 Allergy status to sulfonamides; Z80.3 Family history of malignant neoplasm of breast; Z82.3 Family history of stroke; Z82.49 Family history of ischemic heart disease and other diseases of the circulatory system; Z83.3 Family history of diabetes mellitus; Z84.89 Family history of other specified conditions

== ENCOUNTER → 2017-09-22 | Outpatient (CLI) | payer MEDICARE, OTHER ==
[~2017-09-22] MED LIST changes: +AZITHROMYCIN500 M1 PO; +LATU20TA PO; +LOPRESSOR25 MG PO; +PROAIR HFA8.5 GM INH; +VENTOLIN 02.5 MG/3 M INH; +VIBRAMYCIN100 MG PO
[2017-09-22 12:03] LABS: ABG BASE EXCESS 8.3 mmol/L (-2.0-2.0); ABG HCO3 34.7 mmol/l (22-26); ABG O2 SATURATION 91.5 % (95-97); ARTERIAL BLOOD GAS PCO2 58.1 mmHg (35-45); ARTERIAL BLOOD GAS PH 7.391 (7.35-7.45)
== END | disposition home or self-care (01) ==
LOC: RESCLI 00:56
PROVIDERS: Internal Medicine
DX: R53.83 Other fatigue (principal)

== ENCOUNTER → 2017-10-05 | Outpatient (CLI) | payer MEDICARE, OTHER ==
[~2017-10-05] MED LIST changes: +VIBRAMYCIN100 MG PO
== END | disposition home or self-care (01) ==
LOC: RESCLI 01:27
DX: J44.9 Chronic obstructive pulmonary disease, unspecified (principal); E11.65 Type 2 diabetes mellitus with hyperglycemia; F41.9 Anxiety disorder, unspecified; I48.2 Chronic atrial fibrillation; F32.9 Major depressive disorder, single episode, unspecified; I11.0 Hypertensive heart disease with heart failure; I50.9 Heart failure, unspecified; Z88.2 Allergy status to sulfonamides

== ENCOUNTER → 2017-10-25 | Outpatient (CLI) | payer MEDICARE, OTHER ==
[~2017-10-25] MED LIST changes: +ECPIRIN325 MG PO; +GLIPIZIDE XL2.5 M1 PO; +PEPCID20 MG PO; +POTASSIUM CHLO10 ME4 PO; +TYLENOL EXTRA500 M2 PO
[2017-10-25 16:33] LABS: ABG BASE EXCESS 1.8 mmol/L (-2.0-2.0); ABG HCO3 26.5 mmol/l (22-26); ABG O2 SATURATION 96.7 % (95-97); ARTERIAL BLOOD GAS PCO2 44.3 mmHg (35-45); ARTERIAL BLOOD GAS PH 7.394 (7.35-7.45); ARTERIAL BLOOD GAS PO2 81.8 mmHg (80-90)
== END | disposition home or self-care (01) ==
LOC: LAB 16:04
PROVIDERS: Internal Medicine Critical Care Medicine
DX: J44.9 Chronic obstructive pulmonary disease, unspecified (principal)

== ENCOUNTER 2017-10-26 16:49 | Inpatient (IN) | payer MEDICARE, OTHER ==
[~2017-10-26] VITALS: Ht 142.2 cm; Wt 82.7 kg
[~2017-10-26 16:49] MED LIST changes: -ECPIRIN325 MG PO; -GLIPIZIDE XL2.5 M1 PO; -PEPCID20 MG PO; -POTASSIUM CHLO10 ME4 PO; -TYLENOL EXTRA500 M2 PO
[2017-10-26 17:17] VITALS: BP 170/80
[2017-10-26 18:00] LABS: BASO # 0.1 10*3/uL (0.0-0.1); BASO % 0.6 % (0.0-1.0); EOS # 0.2 10*3/uL (0.0-0.4); HEMATOCRIT 33.8 % (37.0-47.0); HEMOGLOBIN 10.4 g/dl (12.0-16.0); LYMPH # 3.5 10*3/uL (1.3-4.4); LYMPH % 40.6 % (27.0-41.0); MEAN CELL VOLUME 89.2 fl (81.0-99.0); MEAN CORPUSCULAR HGB 27.4 pg (27.0-31.0); MEAN CORPUSCULAR HGB CONC 30.8 g/dl (33.0-37.0); MEAN PLATELET VOLUME 9.8 fl (9.6-12.3); MONO # 0.9 10*3/uL (0.1-1.0); MONO % 10.5 % (3.0-9.0); NEUT # 3.9 10*3/uL (2.3-7.9); NEUT % 45.5 % (47.0-73.0); PLATELET COUNT AUTOMATED 237 10*3/uL (130-400); RED BLOOD COUNT 3.79 10*6/uL (4.10-5.10); RED CELL DISTRI WIDTH 15.1 % (0-14.5); WHITE BLOOD COUNT 8.5 10*3/uL (4.8-10.8)
[2017-10-26 18:17] LABS: ALBUMIN 2.9 gm/dl (3.1-4.5); CREATININE 1.61 mg/dL (0.55-1.02); POTASSIUM 4.1 mmol/L (3.5-5.1); TOTAL PROTEIN 5.6 gm/dL (6.4-8.2)
[2017-10-26 18:18] LABS: TROPONIN I 0.015 ng/ml (<0.045)
[2017-10-26 19:13] LABS: BILIRUBIN NEGATIVE (NEGATIVE); BLOOD NEGATIVE (NEGATIVE); CLARITY CLEAR (CLEAR); COLOR YELLOW (YELLOW); GLUCOSE NEGATIVE (NEGATIVE); KETONE NEGATIVE (NEGATIVE); LEUKO ESTERASE NEGATIVE (NEGATIVE); NITRITE NEGATIVE (NEGATIVE); UROBILINOGEN 0.2 E.U./dl (0.2-1.0)
[2017-10-26 19:19] LABS: BACTERIA TRACE; WBC 0-2 wbc/hpf (0-5)
[2017-10-26 19:49] VITALS: BP 134/58
[2017-10-26 21:00] VITALS: BP 150/58
[2017-10-27] VITALS: BP 110/60
[2017-10-27 06:39] LABS: BASO % 0.5 % (0.0-1.0); EOS # 0.2 10*3/uL (0.0-0.4); HEMATOCRIT 31.1 % (37.0-47.0); HEMOGLOBIN 9.6 g/dl (12.0-16.0); LYMPH # 3.5 10*3/uL (1.3-4.4); MEAN CELL VOLUME 88.9 fl (81.0-99.0); MEAN CORPUSCULAR HGB 27.4 pg (27.0-31.0); MEAN CORPUSCULAR HGB CONC 30.9 g/dl (33.0-37.0); MEAN PLATELET VOLUME 9.9 fl (9.6-12.3); MONO # 0.8 10*3/uL (0.1-1.0); PLATELET COUNT AUTOMATED 227 10*3/uL (130-400); WHITE BLOOD COUNT 8.5 10*3/uL (4.8-10.8)
[2017-10-27 06:50] LABS: POTASSIUM 3.9 mmol/L (3.5-5.1)
[2017-10-27 07:01] LABS: CREATININE 1.32 mg/dL (0.55-1.02); FREE T4 0.88 ng/dl (0.76-1.46); PHOSPHOROUS 4.3 mg/dL (2.5-4.9); THYROID STIM HORMONE (HS) 3.35 uIU/ml (0.358-4.75)
[2017-10-27 08:00] VITALS: BP 154/50
[2017-10-27 12:00] VITALS: BP 155/53
[2017-10-27] MEDS ORDERED: PEPCID20 MG PO (15:45)
[2017-10-27] MEDS ORDERED: GLIPIZIDE XL2.5 M1 PO (15:46)
[2017-10-27] MEDS ORDERED: POTASSIUM CHLO10 ME4 PO (15:49)
[2017-10-27] MEDS ORDERED: LASIX20 MG PO (15:51)
[2017-10-27 16:00] VITALS: BP 155/48
[2017-10-27] MEDS ORDERED: ECPIRIN325 MG PO (16:42)
[2017-10-27] MEDS ORDERED: TYLENOL EXTRA500 M2 PO (16:43)
[2017-10-27] MEDS ORDERED: Oscal,Oyster S500 MG PO (16:46)
[2017-10-27] MEDS ORDERED: VITAMIN D-32000 UNIT PO (16:47)
[2017-10-27] MEDS ORDERED: ZANTAC 150150 MG PO (16:53)
[2017-10-27 20:02] VITALS: BP 150/70
[2017-10-28] VITALS: BP 160/63
[2017-10-28 06:49] LABS: BASO # 0.1 10*3/uL (0.0-0.1); BASO % 0.6 % (0.0-1.0); EOS # 0.2 10*3/uL (0.0-0.4); EOS % 2.1 % (1.0-4.0); HEMATOCRIT 32.1 % (37.0-47.0); LYMPH % 44.5 % (27.0-41.0); MEAN CELL VOLUME 88.4 fl (81.0-99.0); MEAN CORPUSCULAR HGB 27.5 pg (27.0-31.0); MEAN CORPUSCULAR HGB CONC 31.2 g/dl (33.0-37.0); MEAN PLATELET VOLUME 9.7 fl (9.6-12.3); MONO # 0.8 10*3/uL (0.1-1.0); MONO % 8.7 % (3.0-9.0); NEUT # 3.9 10*3/uL (2.3-7.9); NEUT % 43.5 % (47.0-73.0); PLATELET COUNT AUTOMATED 234 10*3/uL (130-400); RED BLOOD COUNT 3.63 10*6/uL (4.10-5.10); RED CELL DISTRI WIDTH 14.6 % (0-14.5)
[2017-10-28 07:20] LABS: ALBUMIN 2.8 gm/dl (3.1-4.5); BUN 14 mg/dl (7-24); CHLORIDE 107 mmol/L (98-107); CREATININE 1.03 mg/dL (0.55-1.02); PHOSPHOROUS 3.7 mg/dL (2.5-4.9); POTASSIUM 3.9 mmol/L (3.5-5.1); SGOT/AST 14 IU/L (3-35); SGPT/ALT 18 U/L (12-78); SODIUM 142 mmol/L (136-145)
[2017-10-28 07:21] LABS: ALKALINE PHOSPHATASE 59 U/L (45-117); TOTAL PROTEIN 5.5 gm/dL (6.4-8.2)
[2017-10-28 08:00] VITALS: BP 164/58
[2017-10-28 11:45] LABS: ABG BASE EXCESS 1.5 mmol/L (-2.0-2.0); ABG HCO3 27.1 mmol/l (22-26); ABG O2 SATURATION 98.3 % (95-97); ARTERIAL BLOOD GAS PCO2 49.6 mmHg (35-45); ARTERIAL BLOOD GAS PH 7.353 (7.35-7.45)
[2017-10-28 12:00] VITALS: BP 131/45
[2017-10-28 16:00] VITALS: BP 148/41
[2017-10-28 20:00] VITALS: BP 148/62
[2017-10-29] VITALS: BP 138/77
[2017-10-29 08:00] VITALS: BP 114/39
[2017-10-29] MEDS ORDERED: LATU20TA PO (10:42)
[2017-10-29 12:00] VITALS: BP 118/51
== END 2017-10-29 15:45 | disposition home health service (06) | DRG 683 ==
LOC: ED 16:49 → EDHOLD 20:09 → 5E 20:09
PROVIDERS: Internal Medicine; Nurse Practitioner Family; Student in an Organized Health Care Education/Training Program
DX: N17.0 Acute kidney failure with tubular necrosis (principal); E44.0 Moderate protein-calorie malnutrition; J96.10 Chronic respiratory failure, unspecified whether with hypoxia or hypercapnia; E11.65 Type 2 diabetes mellitus with hyperglycemia; D68.69 Other thrombophilia; E83.41 Hypermagnesemia; E66.01 Morbid (severe) obesity due to excess calories; I48.0 Paroxysmal atrial fibrillation; I50.32 Chronic diastolic (congestive) heart failure; I13.0 Hypertensive heart and chronic kidney disease with heart failure and stage 1 through stage 4 chronic kidney disease, or unspecified chronic kidney disease; Z68.41 Body mass index [BMI] 40.0-44.9, adult; D64.9 Anemia, unspecified; E86.0 Dehydration; F32.9 Major depressive disorder, single episode, unspecified; G30.9 Alzheimer's disease, unspecified; F02.80 Dementia in other diseases classified elsewhere, unspecified severity, without behavioral disturbance, psychotic disturbance, mood disturbance, and anxiety; F41.9 Anxiety disorder, unspecified; J44.9 Chronic obstructive pulmonary disease, unspecified; M25.521 Pain in right elbow; N18.3 Chronic kidney disease, stage 3 (moderate); I25.10 Atherosclerotic heart disease of native coronary artery without angina pectoris; G47.33 Obstructive sleep apnea (adult) (pediatric); M19.90 Unspecified osteoarthritis, unspecified site; Z99.81 Dependence on supplemental oxygen; Z90.710 Acquired absence of both cervix and uterus; Z95.5 Presence of coronary angioplasty implant and graft; Z83.49 Family history of other endocrine, nutritional and metabolic diseases; Z80.3 Family history of malignant neoplasm of breast; Z82.49 Family history of ischemic heart disease and other diseases of the circulatory system; Z88.2 Allergy status to sulfonamides; Z79.82 Long term (current) use of aspirin; Z79.899 Other long term (current) drug therapy

== ENCOUNTER → 2017-11-02 | Outpatient (CLI) | payer MEDICARE, OTHER ==
[~2017-11-02] MED LIST changes: +ECPIRIN325 MG PO; +GLIPIZIDE XL2.5 M1 PO; +PEPCID20 MG PO; +POTASSIUM CHLO10 ME4 PO; +TYLENOL EXTRA500 M2 PO
== END | disposition home or self-care (01) ==
LOC: RESCLI 03:14
DX: Z09 Encounter for follow-up examination after completed treatment for conditions other than malignant neoplasm (principal); E11.65 Type 2 diabetes mellitus with hyperglycemia; H66.90 Otitis media, unspecified, unspecified ear; I48.0 Paroxysmal atrial fibrillation; F41.9 Anxiety disorder, unspecified; M15.9 Polyosteoarthritis, unspecified; J30.2 Other seasonal allergic rhinitis; J44.9 Chronic obstructive pulmonary disease, unspecified; F03.90 Unspecified dementia, unspecified severity, without behavioral disturbance, psychotic disturbance, mood disturbance, and anxiety; I11.0 Hypertensive heart disease with heart failure; I50.32 Chronic diastolic (congestive) heart failure; F33.9 Major depressive disorder, recurrent, unspecified; K21.9 Gastro-esophageal reflux disease without esophagitis; K59.00 Constipation, unspecified; R53.81 Other malaise; E66.01 Morbid (severe) obesity due to excess calories; R04.0 Epistaxis

== ENCOUNTER 2017-11-04 17:08 | Emergency (ER) | payer MEDICARE, OTHER ==
[~2017-11-04] VITALS: Ht 142.2 cm; Wt 86.2 kg
[2017-11-04 17:19] VITALS: BP 160/56
== END 2017-11-04 18:03 | disposition home or self-care (01) ==
LOC: ED 17:08
DX: R60.0 Localized edema (principal); I25.10 Atherosclerotic heart disease of native coronary artery without angina pectoris; I13.0 Hypertensive heart and chronic kidney disease with heart failure and stage 1 through stage 4 chronic kidney disease, or unspecified chronic kidney disease; E11.22 Type 2 diabetes mellitus with diabetic chronic kidney disease; N18.3 Chronic kidney disease, stage 3 (moderate); I50.30 Unspecified diastolic (congestive) heart failure; M19.90 Unspecified osteoarthritis, unspecified site; I48.0 Paroxysmal atrial fibrillation; J44.9 Chronic obstructive pulmonary disease, unspecified; Z87.891 Personal history of nicotine dependence; Z88.2 Allergy status to sulfonamides; Z79.899 Other long term (current) drug therapy; Z79.82 Long term (current) use of aspirin

== ENCOUNTER 2017-11-10 23:29 | Inpatient (IN) | payer MEDICARE, OTHER ==
[~2017-11-10] VITALS: Ht 142.2 cm; Wt 86.4 kg
[2017-11-10 23:34] VITALS: BP 171/61
[2017-11-11] VITALS (8 sets, daily range): BP systolic 120–143; BP diastolic 42–99
[2017-11-11 00:51] LABS: BASO # 0.1 10*3/uL (0.0-0.1); BASO % 0.5 % (0.0-1.0); EOS # 0.2 10*3/uL (0.0-0.4); EOS % 1.9 % (1.0-4.0); HEMATOCRIT 29.6 % (37.0-47.0); HEMOGLOBIN 9.2 g/dl (12.0-16.0); LYMPH # 3.6 10*3/uL (1.3-4.4); MEAN CELL VOLUME 87.1 fl (81.0-99.0); MEAN CORPUSCULAR HGB 27.1 pg (27.0-31.0); MEAN CORPUSCULAR HGB CONC 31.1 g/dl (33.0-37.0); MEAN PLATELET VOLUME 9.4 fl (9.6-12.3); MONO % 8.5 % (3.0-9.0); NEUT # 6.9 10*3/uL (2.3-7.9); NEUT % 58.1 % (47.0-73.0); PLATELET COUNT AUTOMATED 233 10*3/uL (130-400); RED CELL DISTRI WIDTH 14.3 % (0-14.5); WHITE BLOOD COUNT 11.8 10*3/uL (4.8-10.8)
[2017-11-11 01:02] LABS: ACT PARTIAL THROMBO TIME 32.5 SECONDS (20.8-31.5); INTERNATIONAL NORM RATIO 1.2 (2.0-3.5)
[2017-11-11 01:13] LABS: ALBUMIN 2.7 gm/dl (3.1-4.5); CREATININE 1.35 mg/dL (0.55-1.02); POTASSIUM 4.6 mmol/L (3.5-5.1); TOTAL PROTEIN 5.8 gm/dL (6.4-8.2)
[2017-11-11 01:14] LABS: TROPONIN I 0.025 ng/ml (<0.045)
[2017-11-11 03:45] LABS: TROPONIN I 0.022 ng/ml (<0.045)
[2017-11-11 06:46] LABS: BASO # 0.1 10*3/uL (0.0-0.1); BASO % 0.5 % (0.0-1.0); EOS # 0.2 10*3/uL (0.0-0.4); EOS % 1.2 % (1.0-4.0); HEMATOCRIT 28.1 % (37.0-47.0); HEMOGLOBIN 8.6 g/dl (12.0-16.0); LYMPH # 3.4 10*3/uL (1.3-4.4); LYMPH % 26.3 % (27.0-41.0); MEAN CELL VOLUME 86.7 fl (81.0-99.0); MEAN CORPUSCULAR HGB 26.5 pg (27.0-31.0); MEAN CORPUSCULAR HGB CONC 30.6 g/dl (33.0-37.0); MONO # 1.1 10*3/uL (0.1-1.0); MONO % 8.1 % (3.0-9.0); NEUT # 8.2 10*3/uL (2.3-7.9); NEUT % 63.1 % (47.0-73.0); PLATELET COUNT AUTOMATED 252 10*3/uL (130-400); RED BLOOD COUNT 3.24 10*6/uL (4.10-5.10); RED CELL DISTRI WIDTH 14.3 % (0-14.5)
[2017-11-11 07:00] LABS: POTASSIUM 4.9 mmol/L (3.5-5.1)
[2017-11-11 07:05] LABS: CREATININE 1.16 mg/dL (0.55-1.02)
[2017-11-11 13:53] LABS: BILIRUBIN NEGATIVE (NEGATIVE); BLOOD NEGATIVE (NEGATIVE); CLARITY CLEAR (CLEAR); COLOR YELLOW (YELLOW); GLUCOSE NEGATIVE (NEGATIVE); KETONE TRACE (NEGATIVE); LEUKO ESTERASE NEGATIVE (NEGATIVE); NITRITE NEGATIVE (NEGATIVE); PH 5.5 (5.0-9.0); SPECIFIC GRAVITY >= 1.030 (1.005-1.030); UROBILINOGEN 0.2 E.U./dl (0.2-1.0)
[2017-11-11 13:58] LABS: BACTERIA 1+; RBC 0-2 rbc/hpf (0-2)
[2017-11-12] VITALS: BP 123/50
[2017-11-12 06:59] LABS: BASO # 0.1 10*3/uL (0.0-0.1); BASO % 0.8 % (0.0-1.0); EOS # 0.3 10*3/uL (0.0-0.4); EOS % 2.4 % (1.0-4.0); HEMATOCRIT 30.2 % (37.0-47.0); LYMPH # 3.8 10*3/uL (1.3-4.4); LYMPH % 32.1 % (27.0-41.0); MEAN CELL VOLUME 89.3 fl (81.0-99.0); MEAN CORPUSCULAR HGB 26.6 pg (27.0-31.0); MEAN CORPUSCULAR HGB CONC 29.8 g/dl (33.0-37.0); MEAN PLATELET VOLUME 9.9 fl (9.6-12.3); MONO # 1.1 10*3/uL (0.1-1.0); NEUT # 6.5 10*3/uL (2.3-7.9); NEUT % 54.7 % (47.0-73.0); PLATELET COUNT AUTOMATED 259 10*3/uL (130-400); RED BLOOD COUNT 3.38 10*6/uL (4.10-5.10); RED CELL DISTRI WIDTH 14.6 % (0-14.5); WHITE BLOOD COUNT 11.9 10*3/uL (4.8-10.8)
[2017-11-12 07:19] LABS: ALBUMIN 2.7 gm/dl (3.1-4.5); POTASSIUM 4.5 mmol/L (3.5-5.1)
[2017-11-12 07:21] LABS: CREATININE 1.19 mg/dL (0.55-1.02); TOTAL PROTEIN 5.5 gm/dL (6.4-8.2)
[2017-11-12 08:00] VITALS: BP 117/42
[2017-11-12 16:00] VITALS: BP 145/69
[2017-11-12 20:00] VITALS: BP 131/51
[2017-11-13] VITALS: BP 130/50
[2017-11-13 06:49] LABS: BASO # 0.1 10*3/uL (0.0-0.1); BASO % 0.6 % (0.0-1.0); EOS # 0.4 10*3/uL (0.0-0.4); HEMATOCRIT 29.6 % (37.0-47.0); LYMPH % 34.4 % (27.0-41.0); MEAN CELL VOLUME 87.6 fl (81.0-99.0); MEAN CORPUSCULAR HGB 26.6 pg (27.0-31.0); MEAN CORPUSCULAR HGB CONC 30.4 g/dl (33.0-37.0); MEAN PLATELET VOLUME 9.4 fl (9.6-12.3); MONO # 1.1 10*3/uL (0.1-1.0); MONO % 9.1 % (3.0-9.0); NEUT # 6.1 10*3/uL (2.3-7.9); NEUT % 52.1 % (47.0-73.0); PLATELET COUNT AUTOMATED 263 10*3/uL (130-400); RED BLOOD COUNT 3.38 10*6/uL (4.10-5.10); RED CELL DISTRI WIDTH 14.6 % (0-14.5); WHITE BLOOD COUNT 11.6 10*3/uL (4.8-10.8)
[2017-11-13 06:50] LABS: CREATININE 1.16 mg/dL (0.55-1.02); POTASSIUM 4.6 mmol/L (3.5-5.1)
[2017-11-13 08:00] VITALS: BP 129/41
[2017-11-13 12:00] VITALS: BP 139/68
[2017-11-13 16:00] VITALS: BP 121/49
[2017-11-13 20:21] VITALS: BP 130/39
[2017-11-14 00:03] VITALS: BP 149/36
[2017-11-14 06:12] LABS: BASO # 0.1 10*3/uL (0.0-0.1); BASO % 0.7 % (0.0-1.0); EOS # 0.3 10*3/uL (0.0-0.4); EOS % 2.6 % (1.0-4.0); HEMATOCRIT 28.8 % (37.0-47.0); HEMOGLOBIN 8.6 g/dl (12.0-16.0); LYMPH # 3.1 10*3/uL (1.3-4.4); LYMPH % 30.8 % (27.0-41.0); MEAN CELL VOLUME 88.6 fl (81.0-99.0); MEAN CORPUSCULAR HGB 26.5 pg (27.0-31.0); MEAN CORPUSCULAR HGB CONC 29.9 g/dl (33.0-37.0); MEAN PLATELET VOLUME 9.8 fl (9.6-12.3); MONO % 9.5 % (3.0-9.0); NEUT # 5.7 10*3/uL (2.3-7.9); NEUT % 55.7 % (47.0-73.0); PLATELET COUNT AUTOMATED 262 10*3/uL (130-400); RED BLOOD COUNT 3.25 10*6/uL (4.10-5.10); RED CELL DISTRI WIDTH 14.5 % (0-14.5); WHITE BLOOD COUNT 10.2 10*3/uL (4.8-10.8)
[2017-11-14 06:14] LABS: ALBUMIN 2.6 gm/dl (3.1-4.5); ALKALINE PHOSPHATASE 62 U/L (45-117); BUN 18 mg/dl (7-24); CHLORIDE 107 mmol/L (98-107); CREATININE 0.93 mg/dL (0.55-1.02); POTASSIUM 4.5 mmol/L (3.5-5.1); SGOT/AST 12 IU/L (3-35); SGPT/ALT 13 U/L (12-78); SODIUM 143 mmol/L (136-145); TOTAL PROTEIN 5.6 gm/dL (6.4-8.2)
[2017-11-14 08:00] VITALS: BP 118/60; BP 145/59
[2017-11-14 12:00] VITALS: BP 149/71
[2017-11-14 16:00] VITALS: BP 171/52
[2017-11-14 20:00] VITALS: BP 141/48
[2017-11-15] VITALS: BP 158/66
[2017-11-15 06:37] LABS: BUN 17 mg/dl (7-24); CHLORIDE 105 mmol/L (98-107); POTASSIUM 4.8 mmol/L (3.5-5.1); SODIUM 143 mmol/L (136-145)
[2017-11-15 08:00] VITALS: BP 146/49
[2017-11-15 12:00] VITALS: BP 136/66
[2017-11-15 16:00] VITALS: BP 134/48
[2017-11-15 20:00] VITALS: BP 162/56
[2017-11-16] VITALS: BP 135/50
[2017-11-16 08:00] VITALS: BP 160/48
[2017-11-16 12:00] VITALS: BP 156/70
== END 2017-11-16 17:00 | disposition other institution (70) | DRG 183 ==
LOC: ED 23:29 → 5E 11-11 03:03 → EDHOLD 11-11 03:03 → 5E 11-11 03:11
PROVIDERS: Emergency Medicine Emergency Medical Services; Internal Medicine; Student in an Organized Health Care Education/Training Program
DX: S22.42XA Multiple fractures of ribs, left side, initial encounter for closed fracture (principal); N17.0 Acute kidney failure with tubular necrosis; E43 Unspecified severe protein-calorie malnutrition; E11.65 Type 2 diabetes mellitus with hyperglycemia; E11.22 Type 2 diabetes mellitus with diabetic chronic kidney disease; D68.9 Coagulation defect, unspecified; I48.0 Paroxysmal atrial fibrillation; E66.01 Morbid (severe) obesity due to excess calories; I50.32 Chronic diastolic (congestive) heart failure; I13.0 Hypertensive heart and chronic kidney disease with heart failure and stage 1 through stage 4 chronic kidney disease, or unspecified chronic kidney disease; Z68.41 Body mass index [BMI] 40.0-44.9, adult; Z80.3 Family history of malignant neoplasm of breast; G30.9 Alzheimer's disease, unspecified; F02.80 Dementia in other diseases classified elsewhere, unspecified severity, without behavioral disturbance, psychotic disturbance, mood disturbance, and anxiety; R26.2 Difficulty in walking, not elsewhere classified; N18.3 Chronic kidney disease, stage 3 (moderate); I25.10 Atherosclerotic heart disease of native coronary artery without angina pectoris; F32.9 Major depressive disorder, single episode, unspecified; G47.33 Obstructive sleep apnea (adult) (pediatric); M19.90 Unspecified osteoarthritis, unspecified site; E78.5 Hyperlipidemia, unspecified; K21.9 Gastro-esophageal reflux disease without esophagitis; F41.9 Anxiety disorder, unspecified; J44.9 Chronic obstructive pulmonary disease, unspecified; R00.1 Bradycardia, unspecified; T44.7X5A Adverse effect of beta-adrenoreceptor antagonists, initial encounter; D64.9 Anemia, unspecified; W05.0XXA Fall from non-moving wheelchair, initial encounter; Y93.89 Activity, other specified; Y92.092 Bedroom in other non-institutional residence as the place of occurrence of the external cause; Y99.8 Other external cause status; Z79.01 Long term (current) use of anticoagulants; Z87.891 Personal history of nicotine dependence; Z79.51 Long term (current) use of inhaled steroids; Z79.82 Long term (current) use of aspirin; Z79.84 Long term (current) use of oral hypoglycemic drugs; Z79.899 Other long term (current) drug therapy; Z95.5 Presence of coronary angioplasty implant and graft; Z90.710 Acquired absence of both cervix and uterus; Z88.2 Allergy status to sulfonamides; Z82.49 Family history of ischemic heart disease and other diseases of the circulatory system; Z83.3 Family history of diabetes mellitus

== ENCOUNTER → 2017-11-30 | Outpatient (CLI) | payer MEDICARE, OTHER | END | disposition home or self-care (01) | LOC: RAD 12:13 | DX: J44.1 Chronic obstructive pulmonary disease with (acute) exacerbation (principal); I10 Essential (primary) hypertension; E11.9 Type 2 diabetes mellitus without complications; F17.200 Nicotine dependence, unspecified, uncomplicated ==

== ENCOUNTER → 2017-12-08 | Outpatient (CLI) | payer MEDICARE, OTHER ==
[2017-12-08 12:30] LABS: ABG BASE EXCESS -0.6 mmol/L (-2.0-2.0); ABG HCO3 23.9 mmol/l (22-26); ABG O2 SATURATION 97.1 % (95-97); ARTERIAL BLOOD GAS PCO2 41.2 mmHg (35-45); ARTERIAL BLOOD GAS PH 7.381 (7.35-7.45); ARTERIAL BLOOD GAS PO2 91.9 mmHg (80-90)
== END | disposition home or self-care (01) ==
LOC: RESCLI 06:55
PROVIDERS: Internal Medicine
DX: Z09 Encounter for follow-up examination after completed treatment for conditions other than malignant neoplasm (principal); J44.9 Chronic obstructive pulmonary disease, unspecified; E78.00 Pure hypercholesterolemia, unspecified; I25.10 Atherosclerotic heart disease of native coronary artery without angina pectoris; I11.0 Hypertensive heart disease with heart failure; I50.32 Chronic diastolic (congestive) heart failure; E55.9 Vitamin D deficiency, unspecified; E11.65 Type 2 diabetes mellitus with hyperglycemia; F41.9 Anxiety disorder, unspecified; F03.90 Unspecified dementia, unspecified severity, without behavioral disturbance, psychotic disturbance, mood disturbance, and anxiety; M15.9 Polyosteoarthritis, unspecified; I48.2 Chronic atrial fibrillation; E66.01 Morbid (severe) obesity due to excess calories; R53.82 Chronic fatigue, unspecified; J96.11 Chronic respiratory failure with hypoxia; K59.00 Constipation, unspecified; F32.9 Major depressive disorder, single episode, unspecified; R00.1 Bradycardia, unspecified; Z87.891 Personal history of nicotine dependence

== ENCOUNTER → 2017-12-21 | Outpatient (CLI) | payer MEDICARE, OTHER ==
[2017-12-21 14:02] LABS: HEMATOCRIT 34.3 % (37.0-47.0); HEMOGLOBIN 10.3 g/dl (12.0-16.0); MEAN CELL VOLUME 84.5 fl (81.0-99.0); MEAN CORPUSCULAR HGB 25.4 pg (27.0-31.0); MEAN PLATELET VOLUME 9.6 fl (9.6-12.3); PLATELET COUNT AUTOMATED 409 10*3/uL (130-400); RED BLOOD COUNT 4.06 10*6/uL (4.10-5.10); RED CELL DISTRI WIDTH 15.1 % (0-14.5); WHITE BLOOD COUNT 14.2 10*3/uL (4.8-10.8)
[2017-12-21 14:07] LABS: BILIRUBIN NEGATIVE (NEGATIVE); BLOOD NEGATIVE (NEGATIVE); CLARITY SL CLOUDY (CLEAR); COLOR YELLOW (YELLOW); GLUCOSE 3+ (NEGATIVE); KETONE NEGATIVE (NEGATIVE); LEUKO ESTERASE NEGATIVE (NEGATIVE); NITRITE NEGATIVE (NEGATIVE); PH 5.5 (5.0-9.0); SPECIFIC GRAVITY 1.015 (1.005-1.030); UROBILINOGEN 0.2 E.U./dl (0.2-1.0)
[2017-12-21 14:17] LABS: ALBUMIN 3.1 gm/dl (3.1-4.5); CREATININE 1.22 mg/dL (0.55-1.02); POTASSIUM 5.3 mmol/L (3.5-5.1); TOTAL PROTEIN 6.1 gm/dL (6.4-8.2)
[2017-12-21 14:19] LABS: BACTERIA 2+; WBC 0-2 wbc/hpf (0-5)
[2017-12-21 14:29] LABS: BASOPHILS 1 % (0-1); BURR CELLS FEW; OVALOCYTES FEW; PLATELET SUFFICIENCY NORMAL (NORMAL); TOTAL CELLS COUNTED 100 #CELLS
== END | disposition home or self-care (01) ==
LOC: RESCLI 10:56
PROVIDERS: Internal Medicine
DX: I11.0 Hypertensive heart disease with heart failure (principal); I50.32 Chronic diastolic (congestive) heart failure; H00.021 Hordeolum internum right upper eyelid; H00.015 Hordeolum externum left lower eyelid; R10.30 Lower abdominal pain, unspecified; R53.82 Chronic fatigue, unspecified; K21.9 Gastro-esophageal reflux disease without esophagitis; I10 Essential (primary) hypertension; E55.9 Vitamin D deficiency, unspecified; E11.65 Type 2 diabetes mellitus with hyperglycemia; F41.9 Anxiety disorder, unspecified; F03.90 Unspecified dementia, unspecified severity, without behavioral disturbance, psychotic disturbance, mood disturbance, and anxiety; M15.9 Polyosteoarthritis, unspecified; I48.2 Chronic atrial fibrillation; K59.00 Constipation, unspecified; F32.9 Major depressive disorder, single episode, unspecified; E78.00 Pure hypercholesterolemia, unspecified; N30.00 Acute cystitis without hematuria

== ENCOUNTER 2018-01-04 10:39 | Inpatient (IN) | payer MEDICARE, OTHER ==
[~2018-01-04] VITALS: Wt 88.5 kg
[2018-01-04 10:41] VITALS: BP 126/57
[2018-01-04 12:00] VITALS: BP 105/27
[2018-01-04 13:00] VITALS: BP 111/30
[2018-01-04 14:30] VITALS: BP 121/54
[2018-01-04 14:50] LABS: BASO # 0.1 10*3/uL (0.0-0.1); BASO % 0.4 % (0.0-1.0); EOS # 0.2 10*3/uL (0.0-0.4); EOS % 1.6 % (1.0-4.0); HEMATOCRIT 31.3 % (37.0-47.0); HEMOGLOBIN 9.4 g/dl (12.0-16.0); LYMPH # 3.2 10*3/uL (1.3-4.4); LYMPH % 23.6 % (27.0-41.0); MEAN CELL VOLUME 84.1 fl (81.0-99.0); MEAN CORPUSCULAR HGB 25.3 pg (27.0-31.0); MEAN PLATELET VOLUME 10.1 fl (9.6-12.3); NEUT # 9.1 10*3/uL (2.3-7.9); NEUT % 66.7 % (47.0-73.0); PLATELET COUNT AUTOMATED 202 10*3/uL (130-400); RED BLOOD COUNT 3.72 10*6/uL (4.10-5.10); RED CELL DISTRI WIDTH 15.8 % (0-14.5); WHITE BLOOD COUNT 13.6 10*3/uL (4.8-10.8)
[2018-01-04 15:06] LABS: ALBUMIN 3.1 gm/dl (3.1-4.5); CREATININE 1.43 mg/dL (0.55-1.02); POTASSIUM 4.7 mmol/L (3.5-5.1)
[2018-01-04] MEDS ORDERED: XANAX0.5 MG PO (15:44)
[2018-01-04] MEDS ORDERED: LASIX40 MG PO (15:44)
[2018-01-04] MEDS ORDERED: MULTI-VITAMIN1 EACH PO (15:45)
[2018-01-04] MEDS ORDERED: ASPIRIN CHEWABL81 MG PO (15:47)
[2018-01-04] MEDS ORDERED: CELEXA10 MG PO (15:48)
[2018-01-04 16:00] VITALS: BP 109/49
[2018-01-04 20:00] VITALS: BP 140/55
[2018-01-05] VITALS: BP 152/53
[2018-01-05 05:55] LABS: BASO # 0.1 10*3/uL (0.0-0.1); BASO % 0.4 % (0.0-1.0); EOS # 0.2 10*3/uL (0.0-0.4); EOS % 2.1 % (1.0-4.0); HEMATOCRIT 29.9 % (37.0-47.0); HEMOGLOBIN 8.9 g/dl (12.0-16.0); LYMPH # 4.2 10*3/uL (1.3-4.4); MEAN CELL VOLUME 85.2 fl (81.0-99.0); MEAN CORPUSCULAR HGB 25.4 pg (27.0-31.0); MEAN CORPUSCULAR HGB CONC 29.8 g/dl (33.0-37.0); MEAN PLATELET VOLUME 10.4 fl (9.6-12.3); MONO # 1.1 10*3/uL (0.1-1.0); MONO % 9.2 % (3.0-9.0); NEUT % 51.6 % (47.0-73.0); PLATELET COUNT AUTOMATED 177 10*3/uL (130-400); RED BLOOD COUNT 3.51 10*6/uL (4.10-5.10); RED CELL DISTRI WIDTH 15.9 % (0-14.5); WHITE BLOOD COUNT 11.7 10*3/uL (4.8-10.8)
[2018-01-05 05:58] LABS: CREATININE 1.28 mg/dL (0.55-1.02); PHOSPHOROUS 4.4 mg/dL (2.5-4.9); POTASSIUM 4.1 mmol/L (3.5-5.1)
[2018-01-05 08:00] VITALS: BP 133/35
[2018-01-05 12:00] VITALS: BP 120/48
[2018-01-05 13:45] LABS: BILIRUBIN NEGATIVE (NEGATIVE); BLOOD NEGATIVE (NEGATIVE); CLARITY SL CLOUDY (CLEAR); COLOR YELLOW (YELLOW); GLUCOSE NEGATIVE (NEGATIVE); KETONE NEGATIVE (NEGATIVE); LEUKO ESTERASE NEGATIVE (NEGATIVE); NITRITE NEGATIVE (NEGATIVE); PH 5.5 (5.0-9.0); UROBILINOGEN 0.2 E.U./dl (0.2-1.0)
[2018-01-05 13:59] LABS: EPITHELIAL CELLS 40-45; RBC 0-2 rbc/hpf (0-2)
[2018-01-05 16:00] VITALS: BP 115/40
[2018-01-05 20:00] VITALS: BP 146/52
[2018-01-06 01:11] VITALS: BP 145/34
[2018-01-06 08:00] VITALS: BP 132/50
[2018-01-06 12:00] VITALS: BP 124/51
== END 2018-01-06 15:20 | disposition home or self-care (01) | DRG 205 ==
LOC: ED 10:39 → EDHOLD 14:27 → 4E 14:27
PROVIDERS: Nurse Practitioner Family; Student in an Organized Health Care Education/Training Program
DX: S22.32XA Fracture of one rib, left side, initial encounter for closed fracture (principal); N17.0 Acute kidney failure with tubular necrosis; E44.0 Moderate protein-calorie malnutrition; J96.10 Chronic respiratory failure, unspecified whether with hypoxia or hypercapnia; I48.0 Paroxysmal atrial fibrillation; E11.65 Type 2 diabetes mellitus with hyperglycemia; E11.22 Type 2 diabetes mellitus with diabetic chronic kidney disease; E66.01 Morbid (severe) obesity due to excess calories; I13.0 Hypertensive heart and chronic kidney disease with heart failure and stage 1 through stage 4 chronic kidney disease, or unspecified chronic kidney disease; I50.30 Unspecified diastolic (congestive) heart failure; D64.9 Anemia, unspecified; E55.9 Vitamin D deficiency, unspecified; G30.9 Alzheimer's disease, unspecified; F02.80 Dementia in other diseases classified elsewhere, unspecified severity, without behavioral disturbance, psychotic disturbance, mood disturbance, and anxiety; R00.1 Bradycardia, unspecified; N18.3 Chronic kidney disease, stage 3 (moderate); G47.33 Obstructive sleep apnea (adult) (pediatric); I25.10 Atherosclerotic heart disease of native coronary artery without angina pectoris; F32.9 Major depressive disorder, single episode, unspecified; M19.90 Unspecified osteoarthritis, unspecified site; J44.9 Chronic obstructive pulmonary disease, unspecified; W01.0XXA Fall on same level from slipping, tripping and stumbling without subsequent striking against object, initial encounter; Y93.01 Activity, walking, marching and hiking; Y92.098 Other place in other non-institutional residence as the place of occurrence of the external cause; Y99.8 Other external cause status; Z88.2 Allergy status to sulfonamides; Z79.01 Long term (current) use of anticoagulants; Z79.82 Long term (current) use of aspirin; Z79.899 Other long term (current) drug therapy; Z90.710 Acquired absence of both cervix and uterus; Z95.818 Presence of other cardiac implants and grafts; Z87.891 Personal history of nicotine dependence; Z84.89 Family history of other specified conditions; Z82.3 Family history of stroke; Z80.3 Family history of malignant neoplasm of breast; Z83.3 Family history of diabetes mellitus; Z82.49 Family history of ischemic heart disease and other diseases of the circulatory system; Z68.37 Body mass index [BMI] 37.0-37.9, adult

== ENCOUNTER → 2018-01-19 | Outpatient (CLI) | payer MEDICARE, OTHER ==
[~2018-01-19] MED LIST changes: +ASPIRIN CHEWABL81 MG PO; +CELEXA10 MG PO; +MULTI-VITAMIN1 EACH PO; +XANAX0.5 MG PO
== END | disposition home or self-care (01) ==
LOC: RESCLI 02:05
DX: Z09 Encounter for follow-up examination after completed treatment for conditions other than malignant neoplasm (principal); R10.11 Right upper quadrant pain; S22.32XD Fracture of one rib, left side, subsequent encounter for fracture with routine healing; J44.9 Chronic obstructive pulmonary disease, unspecified; E55.9 Vitamin D deficiency, unspecified; F03.90 Unspecified dementia, unspecified severity, without behavioral disturbance, psychotic disturbance, mood disturbance, and anxiety; M15.9 Polyosteoarthritis, unspecified; I48.2 Chronic atrial fibrillation; I11.0 Hypertensive heart disease with heart failure; I50.32 Chronic diastolic (congestive) heart failure; E11.65 Type 2 diabetes mellitus with hyperglycemia; E78.00 Pure hypercholesterolemia, unspecified; I25.10 Atherosclerotic heart disease of native coronary artery without angina pectoris; K21.9 Gastro-esophageal reflux disease without esophagitis; F41.9 Anxiety disorder, unspecified; X58.XXXD Exposure to other specified factors, subsequent encounter

== ENCOUNTER 2018-03-05 23:35 | Inpatient (IN) | payer MEDICARE, OTHER ==
[~2018-03-05] VITALS: Ht 142.2 cm; Wt 92.1 kg
--- NOTE | ~2018-03-05 | PR ---
[place], [place] PROGRESS NOTE NAME: HALINA CORTES [facility] #: [id number] UNIT #: [id number] ROOM: 509 DOCTOR: VICTOR MANUEL MARTINEZ MD,[place] BIRTHDATE: [birth year] DOS: 03/09/2018 SUBJECTIVE: The patient's bronchoscopy done yesterday without difficulty. She has been noted some chest congestion and cough, this morning small amount of sputum expectoration. The bronchial washing taken yesterday. The patient sent to the culture for multilobar nodular pneumonia. She has not been noted any further episodes of hemoptysis and symptoms of nausea, vomiting and symptom of abdominal pain, and symptoms of pain of the lower extremity. Generalized weak and fatigue were noted. She has been using her noninvasive ventilator for the patient at nighttime and this morning, using oxygen supplementation. The remaining systems were reviewed, they were noted all negative. OBJECTIVE: VITAL SIGNS: For the patient, which has been recorded shows the temperature noted as 99.2 degree Fahrenheit, respiratory rate 20, heart rate 71, blood pressure 152/44. Intake is 835. The output was not recorded, pulse oxygen saturation 3 liters, 96% saturation. HEENT: Examination shows head was atraumatic. Eyes nonicterus. NECK: Supple. CARDIOVASCULAR: S1, S2 audible. LUNGS: The patient was noted without any crackles. Breaths are noted mildly decreased. Scattered wheezing. ABDOMEN: Soft and obese. EXTREMITIES: Without acute edema. Visible skin, no lesions or rashes. MUSCULOSKELETAL: Noted without any acute deformities. CENTRAL NERVOUS SYSTEM: General weakness, fatigue were noted. LABORATORY DATA: Gram stain of the bronchial washing was noted with many white blood cells, few epithelial cells, few gram-positive cocci in clusters, few gram-negative bacilli. Normal vickie cultures. CBC today: WBC count 10.9, hemoglobin 8.4, hematocrit 28.3 and platelet count 214,000. BMP of the patient of 03/09/2018, noted BUN 15 and creatinine is 0.9. IMPRESSION: 1. The patient has been noted multilobar pneumonia with nodular repair: 2. Hemoptysis. The patient has not been noted any recurrence. 3. Acute exacerbation of chronic obstructive pulmonary disease noted as well. 4. Chronic obesity. 5. Obstructive sleep apnea disorder. 6. Chronic hypercapnic and hypoxic respiratory failure. PLAN OF TREATMENT: Monitor culture results. Continue current antibiotics. Repeat another chest x-ray in the morning. The Xarelto was resumed for the patient yesterday after bronchoscopy. There was evidence of hemoptysis, monitoring. The lab results for patient non-infection, which has been ordered for this patient once available. Supportive care, other therapy, plan of management and treatments. [place], [place] PROGRESS NOTE NAME: HALINA CORTES UNIT #: [id number] ROOM: [facility] DOCTOR: VICTOR MANUEL MARTINEZ MD,[place] BIRTHDATE: [birth year] AUGUSTO RUSH MD CM:MONICA [id number] AUGUSTO MARTINEZ MD 05/17/18 0811 interface
--- NOTE | ~2018-03-05 | PR ---
[place], [place] PROGRESS NOTE NAME: HALINA CORTES [facility] #: [id number] UNIT #: [id number] ROOM: 509 DOCTOR: VICTOR MANUEL MARTINEZ MD,[place] BIRTHDATE: [birth year] DOS: 03/14/2018 SUBJECTIVE: The patient is noted comfortable at this time, sitting on the chair this morning. There are no symptoms of chest pain or any hemoptysis. Shortness of breath and cough have improved significantly. OBJECTIVE: VITAL SIGNS: Normal temperature, respiratory rate 20, heart rate 58, blood pressure 152/56. The pulse oxygen saturation on 3 liters nasal cannula is 100% saturation. HEENT: Examination shows head was atraumatic. Eyes nonicterus. NECK: Supple. CARDIOVASCULAR: S1, S2 audible. LUNGS: Without any wheeze or crackles today. ABDOMEN: Soft, nontender, bowel sounds present. EXTREMITIES: The patient noted without any acute edema. IMPRESSION: The patient with progressive improvement noted in acute on chronic respiratory failure with resolving acute pneumonia as well as exacerbation of chronic obstructive pulmonary disease. PLAN OF TREATMENT: No changes in the plan of care for the patient at this time. Discharge planning was still noted in progress. In the meantime, continue noninvasive ventilator, bronchodilators, oxygen supplementation. Decrease and discontinue Solu-Medrol in the next 4 days. AUGUSTO RUSH MD CM:PNTRANS [id number] AUGUSTO MARTINEZ MD 03/15/18 0049 interface
--- NOTE | ~2018-03-05 | CON ---
[place], [place] REPORT OF CONSULTATION NAME: HALINA CORTES [facility] #: [id number] UNIT #: [id number] ROOM: 509 DOCTOR: VICTOR MANUEL MARTINEZ MD,[place] BIRTHDATE: [birth year] DOS: 03/06/2018 REASON FOR CONSULTATION: Assess patient's current symptoms of coughing with pneumonia and possibility of hemoptysis. HISTORY OF PRESENT ILLNESS: This is a 72-year-old white female with past history of atrial fibrillation, on Xarelto as well as COPD and chronic hypercapnia hypoxic respiratory failure. Currently use noninvasive ventilator. The patient presented to the hospital, brought by the ambulance. The patient was noted with symptoms of acute shortness of breath from home. Shortness of breath has had been described in the past couple of days. She has also noted low grade fever. The coughing has been noted with some blood reported, however, quantity and history is not completely clear at this time for the hemoptysis. This morning noted comfortable at this time, resting on the bed without any distress. She does have symptoms of wheezing, reported REVIEW OF SYSTEMS: CONSTITUTIONAL SYMPTOMS: Fatigue noted low grade fever at home for the past couple of days. Denies any changes in appetite or abnormal weight loss. EYES: Denies burning, redness, or tenderness. EARS, NOSE, AND THROAT SYMPTOMS: Denies sore throat, hoarseness, otalgia, or postnasal drainage or epistaxis. CARDIOVASCULAR SYSTEM: No anginal pain, edema of the lower extremities. GASTROINTESTINAL: Dysphagia, nausea, vomiting, diarrhea, abdominal pain, hematemesis, melena, hematochezia. SKIN: No abnormal lesions or rashes. MUSCULOSKELETAL: No acute joint pain, redness, or tenderness. SKIN: Denies lesions, rashes or bruising. CENTRAL NERVOUS SYSTEM: No dizziness, headache, diplopia, syncopal episodes. Remaining systems were reviewed. They were noted all negative. PAST MEDICAL HISTORY: Known with history of: 1. End-stage chronic obstructive pulmonary disease. 2. Chronic hypoxic respiratory failure on 3 liter nasal cannula and acute chronic hypercapnic respiratory failure. 3. Recurrent past hospitalization, for COPD and hypercapnia. 4. Alzheimer disease and dementia. 5. Seizure disorder. 6. Moderate obesity. 7. Type 2 diabetes mellitus. 8. Anxiety disorder. 9. Atrial fibrillation. 10. Obstructive sleep apnea disorder. 11. Hypercoagulable status. 12. Osteoarthritis. 13. Acute congestive heart failure, diastolic dysfunction. PAST SURGICAL HISTORY: 1. Hysterectomy. [place], [place] REPORT OF CONSULTATION NAME: HALINA CORTES UNIT #: [id number] ROOM: [facility] DOCTOR: VICTOR MANUEL MARTINEZ MD,[place] BIRTHDATE: [birth year] 2. Cardiac catheterization and coronary stents insertion. 3. Therapeutic bronchoscopy that was done in 09/2017. SOCIAL HISTORY: The patient currently lives at home with other family members. . She has been noted tobacco use since teenager, a pack of cigarettes per day that has been discontinued in 09/2017. Denies alcohol use or illicit drug use. FAMILY HISTORY: Father at 72 years of complication of liver disease. Mother 60 years old, complication of metastatic breast cancer. CURRENT MEDICATIONS: Administered noted use of Lipitor, Aricept, Xarelto, citalopram, aspirin, Multaq, lisinopril, Victoza, glipizide, Dulera, DuoNeb, doxycycline, Rocephin and other p.r.n. medications. DRUG ALLERGIES: NOTED ALLERGY TO SULFA DRUGS. PHYSICAL EXAMINATION: GENERAL: This is a 72-year-old white female, currently noted to be awake and alert without acute distress. Height of 4 feet 8 inches, weight of 88 kilograms, BMI 43.7. VITAL SIGNS: Temperature 100.2 degrees a normal temperature, respiratory rate 18-20 since yesterday, heart rate ranged between 50-63, blood pressure 152/73 to 140/43. Pulse oxygen saturation noted on 3 liters 99% saturation. HEAD, EYES, EARS, NOSE, AND THROAT: Moderate obesity. Head was atraumatic. Eyes nonicterus. NECK: Supple. It was short and obese. Decreased posterior pharyngeal space. CARDIOVASCULAR SYSTEM: S1, S2 audible. LUNGS: Moderate decreased breath sounds noted in the lungs bilaterally. ABDOMEN: Soft, nontender. It was obese. EXTREMITIES: Noted without acute edema. SKIN: Noted without any lesions or rashes. CENTRAL NERVOUS SYSTEM: Nonfocal. There were no gross focal neurologic deficit. LABORATORY AND DIAGNOSTIC DATA: CBC was done this morning 03/06/2018, WBC count 16.9, hemoglobin 10.7, hematocrit normal. Lactic acid 1.4. PT/INR noted 1.1 today. CMP this morning 03/07/2018, BUN 25, creatinine 1.53. CBC this morning repeated, WBC count 15.2, hemoglobin 8.8, hematocrit 29.3, platelet count were normal. BMP, BUN 25, creatinine 1.36, glucose 108. Chest x-ray that was done this morning was reviewed, was noted with possibility of infiltration was considered in the mid and the left lower lung. IMPRESSION: 1. The patient will be currently admitted to the hospital noted increased symptoms of coughing with presumed hemoptysis at this time, which needs to be witnessed by the nursing staff at this time. So far has not been showing any significant hemoptysis reported by the nursing staff. 2. History of chronic hypercapnic hypoxic respiratory failure, remains stable. 3. Obstructive sleep apnea disorder. [place], [place] REPORT OF CONSULTATION NAME: HALINA CORTES UNIT #: [id number] ROOM: 509 DOCTOR: AUGUSTO KENNEY MD BIRTHDATE: [birth year] 4. Early exacerbation of chronic obstructive pulmonary disease as well. PLAN OF MANAGEMENT: Continue current antibiotic regimen. The patient is already getting Xarelto which has not been placed on hold at this time, however, the CT scan of the chest will be ordered, CT of the chest for further assessment prior to consideration of discontinuation of Xarelto. Other anticoagulant, the patient does develop hemoptysis as well. Sputum for Gram stain culture was ordered. Continue the therapy, plan of management after assessment a CT scan of the chest additional recommendation management. The patient will be ordered accordingly. If necessary, bronchoscopy will be done for assessment of the hemoptysis. The hemoptysis of patients blood sputum expectoration whatever, expect seemed to the bedside, the cough to determine the quantity of hemoptysis at the bedside. Other workup noninfectious etiology will be ordered as well after the CT scan of the chest assessment. Certainly malignancy would remain in consideration. Current finding noted on the chest x-ray as a part of the differential diagnosis. AUGUSTO RUSH MD CM:CONSTR:REPORT OF CONSULTATION 1423 05/17/18 0748 interface
--- NOTE | ~2018-03-05 | EKG ---
[place], [place] ELECTROCARDIOGRAM REPORT NAME: HALINA CORTES UNIT #: [id number] ROOM: 509 DOCTOR: VICTOR MANUEL MARTINEZ MD,[place] BIRTHDATE: [birth year] DOS: 03/06/2018 Electrocardiogram was done at 2357 hours. Normal sinus rhythm noted. Heart rate 64 beats per minute with PVCs. AUGUSTO RUSH MD CM:EKGRPT:ELECTROCARDIOGRAM REPORT 1347 [id number] AUGUSTO MARTINEZ MD
--- NOTE | ~2018-03-05 | PR ---
[place], [place] PROGRESS NOTE NAME[id number] UN[facility] #: [id number] ROOM: 509 DOCTOR: VICTOR MANUEL MARTINEZ MD,[place] BIRTHDATE: [birth year] DOS: 03/12/2018 PULMONARY PROGRESS NOTE SUBJECTIVE: The patient has been noted comfortable at this time, resting on the bed without acute distress, has not been noted with symptoms of coughing, sputum expectoration or any chest pain. Physically appearing to be doing better this morning without any distress or shortness of breath or cough. OBJECTIVE: VITAL SIGNS: Normal temperature, respiratory rate 20, heart rate 88, blood pressure 142/88. Pulse oxygen saturation noted on 3 liters nasal cannula 100% saturation. HEENT: Shows head was atraumatic. Eye nonicterus. NECK: Supple. CARDIOVASCULAR: S1, S2 is audible. LUNGS: Without any wheezing or crackles today. ABDOMEN: Soft, obese, nontender. EXTREMITIES: No new changes. LABORATORY DATA: Arterial blood gas that was ordered by primary care attending today showed pH of 7.35, pCO2 48, pO2 86 on 3 L nasal cannula. IMPRESSION: Progressive resolution improvement noted in the acute exacerbation of chronic obstructive pulmonary disease, acute tracheobronchitis, improvement in the wheezing and debility. PLAN OF TREATMENT: No changes from the pulmonary standpoint. Continue the patient's current therapy, plan of management as in progress. Usual care. Supportive therapy, plan of management. AUGUSTO RUSH MD CM:PNTRANS [id number] [id number] AUGUSTO MARTINEZ MD 03/12/18 2334 interface
--- NOTE | ~2018-03-05 | PR ---
[place], [place] PROGRESS NOTE NAME: HALINA CORTES [facility] #: [id number] UNIT #: [id number] ROOM: 509 DOCTOR: VICTOR MANUEL MARTINEZ MD,[place] BIRTHDATE: [birth year] DOS: 03/10/2018 PULMONARY PROGRESS NOTE SUBJECTIVE: The patient is noted comfortable at this time, resting in the bed, using the noninvasive ventilator that was ordered. Denies symptoms of chest pain or hemoptysis. Denies symptoms of nausea or vomiting. Denies symptoms of abdominal pain. REVIEW OF SYSTEMS: The patient denies symptoms of headache or diplopia. Denies symptoms of nausea or vomiting. General weakness and fatigue were noted, not ambulating. Remaining systems reviewed, they were noted all negative. OBJECTIVE: VITAL SIGNS: Showed normal temperature, respiratory rate 18, heart rate 61, blood pressure 131/50. The pulse oxygen saturation on 3 liters nasal cannula was 96% saturation. HEENT: Shows head was atraumatic, eyes nonicterus. NECK: Supple. CARDIOVASCULAR: S1, S2 audible. LUNGS: The patient was noted without any wheezing or crackles today. ABDOMEN: Soft, nontender. EXTREMITIES: Without any acute edema. SKIN: Noted no lesions or rashes. CENTRAL NERVOUS SYSTEM: Noted nonfocal except general weakness and fatigue were reported. MUSCULOSKELETAL: Noted without any acute deformities. LABORATORY DATA: The workup for this patient for the hemoptysis was ordered, the patient has noninfectious etiology noted with negative JOSE FRANCISCO. The workup for the vasculitis noted negative. The rheumatoid factor noted mildly elevated at 29.5. IgE noted normal. IgG for the patient total level was noted moderate reduction at 418 with IgG subclass 2 was also noted decreased. Histoplasma antigen was noted as negative. Chest x-ray that was done for the patient this morning was reviewed, radiology interpretation is pending. Chest x-ray was personally reviewed, shows reduction of previous noted infiltration in the left lung. IMPRESSION: 1. Resolving acute pneumonia resulting in hemoptysis most likely the cause. 2. Reduction of the IgG level for the patient may be related to current acute infection and also to rule out primary common variable hypogammaglobulinemia. 3. The patient with resolving acute exacerbation of chronic obstructive pulmonary disease as well. 4. History of chronic hypercapnic and hypoxic respiratory failure. 5. Obstructive sleep apnea disorder. PLAN OF MANAGEMENT: Discharge planning could be started for the patient for home discharge with [facility]. Continue the BiPAP. Continue the current antibiotic, the patient could be switched orally. Continue other [place], [place] PROGRESS NOTE NAME: DAYTON CORTESJORGE Perdomo UNIT #: [id number] ROOM: [facility] DOCTOR: VICTOR MANUEL MARTINEZ MD,[place] BIRTHDATE: [birth year] supportive therapy, plan of management without any changes, usual care, and other supportive plan of therapy and care plan. AUGUSTO RUSH MD CM:MONICA [id number] [id number] AUGUSTO MARTINEZ MD 03/10/18 0843 interface
--- NOTE | ~2018-03-05 | PR ---
[place], [place] PROGRESS NOTE NAME: HALINA CORTES [facility] #: [id number] UNIT #: [id number] ROOM: 509 DOCTOR: VICTOR MANUEL MARTINEZ MD,[place] BIRTHDATE: [birth year] DOS: 03/15/2018 SUBJECTIVE: The patient noted comfortable at this time, resting on the chair. Planned for possible discharge to the [facility]. In general, has been noted with gradual improvement in the overall physical status of the patient's respiratory symptoms. OBJECTIVE: VITAL SIGNS: Normal temperature, respiratory rate 18, heart rate 61, blood pressure 153/55. The pulse oxygen saturation of the patient 3 liters nasal cannula 98% saturation. HEENT: Examination shows head was atraumatic. Eyes nonicterus. NECK: Supple. CARDIOVASCULAR: S1, S2 audible. LUNGS: Without any wheeze or crackles. ABDOMEN: Soft and nontender. EXTREMITIES: Without any acute edema. IMPRESSION: The patient with progressive and gradual improvement, was noted with acute on chronic hypercapnia hypoxia, acute pneumonia, exacerbation of chronic obstructive pulmonary disease and debility. PLAN OF MANAGEMENT: No changes in plan of therapy at this time. Continue the patient's current plan of management with usual care, other supportive plan of therapy and care. AUGUSTO RUSH MD CM:PNTRANS [id number] [id number] AUGUSTO MARTINEZ MD 05/17/18 0817 interface
--- NOTE | ~2018-03-05 | PR ---
[place], [place] PROGRESS NOTE NAME: HALINA CORTES [facility] #: [id number] UNIT #: [id number] ROOM: 509 DOCTOR: VICTOR MANUEL MARTINEZ MD,[place] BIRTHDATE: [birth year] DOS: 03/13/2018 PULMONARY PROGRESS NOTE SUBJECTIVE: She is seen and examined on 03/13/2018, is comfortably resting, sitting on the chair. Denies symptoms of chest pain, coughing, or sputum expectoration. Denies symptoms of nausea or vomiting. OBJECTIVE: VITAL SIGNS: Which were recorded showed the temperature noted as normal, respiratory rate 20, heart rate 73, blood pressure 161/60. The pulse oxygen saturation noted on 3 liters nasal cannula 93% saturation. HEENT: Moderate chronic obesity. NECK: Supple. CARDIOVASCULAR: S1, S2 audible. LUNGS: Noted without any wheeze or crackles at the present time. ABDOMEN: Soft, nontender, obese. EXTREMITIES: Without any acute edema. IMPRESSION: The patient with progressive improvement with resolution of acute pneumonia, exacerbation of chronic obstructive pulmonary disease, and debility. PLAN OF MANAGEMENT: No changes in the plan of management. Continue the patient's current therapy, plan of care as in progress. Usual care, other supportive plan of therapy and care. Discharge planning was pending. AUGUSTO RUSH MD CM:PNTRANS 1155 1619 AUGUSTO MARTINEZ MD 03/13/18 1617 interface
--- NOTE | ~2018-03-05 | PROC NOTE ---
[place], [place] PROCEDURE NOTE NAME: HALINA CORTES [facility] #: [id number] UNIT #: [id number] ROOM: 509 DOCTOR: VICTOR MANUEL MARTINEZ MD,[place] BIRTHDATE: [birth year] DOS: 03/08/2018 FIBEROPTIC BRONCHOSCOPY PREOPERATIVE DIAGNOSES: The patient with hemoptysis and bilateral pulmonary infiltration. POSTOPERATIVE DIAGNOSES: There was no evidence of any active hemoptysis or old bleeding noted in the endobronchial secretions. There were no endobronchial obstructive lesions. COMPLICATIONS: None. PROCEDURE DESCRIPTION: Informed consent obtained from the patient's family member. The patient was brought to the OR and placed in supine position. Conscious sedation was administered. After achieving proper sedation, airway introduced into the mouth. Bronchoscope was advanced to the airway into laryngeal area. Epiglottis and vocal cords were seen. The bronchoscope was advanced to vocal cord and tracheal lumen. There was no bleeding noted in the area of the epiglottis. The bronchoscope was advanced into vocal cord and tracheal lumen, shows moderate amount of thick mucopurulent secretion mixture, which was suctioned out at the venus level. Venus was noted sharp. The patient noted similar secretions present in the endobronchial tree bilaterally with some impaction of mucus plug in the bronchial tree. Bronchial washing was carried out in the right upper, right middle, left lobe, left upper, lingula, and lower lobe bronchi as well. The secretions were sent for all the cultures. There were no signs of active bleeding or old hemoptysis noted as stated at this time. Cultures were sent for the patient to the lab. The procedure was well tolerated. Postoperative findings were discussed with the patient and family members in detail. AUGUSTO RUSH MD CM:PROCNOTE:PROCEDURE NOTE 1034 [id number] AUGUSTO MARTINEZ MD
--- NOTE | ~2018-03-05 | PR ---
[place], [place] PROGRESS NOTE NAME: HALINA CORTES [facility] #: [id number] UNIT #: [id number] ROOM: 509 DOCTOR: VICTOR MANUEL MARTINEZ MD,[place] BIRTHDATE: [birth year] DOS: 03/07/2018 PULMONARY PROGRESS NOTE SUBJECTIVE: The patient noted comfortable at this time without any acute distress, has not been noted with any symptoms of chest pain or hemoptysis. Denies symptoms of nausea, vomiting. The patient states that she has been expectorating dark sputum, unable to tell me if it is hemoptysis or not. Currently she was not stating that this is clearly hemoptysis. She denies symptoms of chest pain. She has been using her noninvasive ventilator oxygen supplementation. Fever noted low grade to 100 degrees Fahrenheit this morning. She was scheduled for the CT scan of chest to be done today with intravenous contrast. She denies symptoms of nausea, vomiting. Denies symptoms of headache or diplopia. Denies any edema or pain in the lower extremities. Remaining systems were reviewed. They were noted all negative. OBJECTIVE: VITAL SIGNS: Temperature noted T-max 100.1 degrees Fahrenheit, respiratory rate 20, heart rate 76, blood pressure 155/44. Pulse oxygen saturation noted 3 liters on nasal cannula 95% saturation. HEENT: Examination shows head was atraumatic. Eyes nonicterus. NECK: Supple. CARDIOVASCULAR SYSTEM: S1, S2 is audible. LUNGS: The patient was noted without any wheezing or crackles at the present time. The breaths are noted mildly decreased bilaterally. ABDOMEN: Soft, nontender. EXTREMITIES: The patient noted without any acute edema. MUSCULOSKELETAL: Noted without any deformities. VISIBLE SKIN: No lesions or rashes. CENTRAL NERVOUS SYSTEM: No focal deficit. LABORATORY DATA: The patient's CBC today: WBC count 12.2, hemoglobin 8.7, hematocrit 29.4, platelet count was normal. BMP was noted normal BUN and creatinine 1.09. The chest x-ray for the patient that was done was noted with area of consolidation, infiltration. The left upper lobe, possibility of a mass or lesion cannot be excluded. CT of the chest was completed that was reviewed shows nodular infiltration noted in the lungs bilaterally with evidence of tree-in-bud appearance as well in the right middle lobe as well. A 5 mm nodule noted in the right lower lobe as well. There was no evidence of pulmonary embolism. There were no significant lymphadenopathy seen. IMPRESSION: 1. Multilobar pneumonia, possibility of hemoptysis was considered. 2. Chronic hypercapnic hypoxic respiratory failure. 3. Acute exacerbation of chronic obstructive pulmonary disease. 4. Obstructive sleep apnea disorder. PLAN OF MANAGEMENT: The patient will be requiring therapeutic bronchoscopy and further assessment to be done tomorrow morning. The consent will be obtained [place], [place] PROGRESS NOTE NAME: HALINA CORTES UNIT #: [id number] ROOM: [facility] DOCTOR: VICTOR MANUEL MARTINEZ MD,[place] BIRTHDATE: [birth year] from the patient and family member. The Xarelto at this time has been discontinued until the history of hemoptysis resolved. Continue noninvasive ventilator. Continue bronchodilator therapy, plan of management and antibiotic. No changes. The workup for the known infectious disease and for the hemoptysis limited testing, which were available in this hospital was ordered. AUGUSTO RUSH MD CM:PNTRANS 1208 [id number] AUGUSTO MARTINEZ MD 05/17/18 0809 interface
--- NOTE | ~2018-03-05 | PR ---
[place], [place] PROGRESS NOTE NAME: HALINA CORTES [facility] #: [id number] UNIT #: [id number] ROOM: 509 DOCTOR: VICTOR MANUEL MARTINEZ MD,AUGUSTO BIRTHDATE: [birth year] DOS: 03/08/2018 PULMONARY PROGRESS NOTE SUBJECTIVE: The patient was noted without any acute distress at this time, resting comfortably on the bed. She has been planned for bronchoscopy done today. She has not been noted any episodes of hemoptysis in the last 24 hours. She is n.p.o. past midnight for bronchoscopy to be done today. Denies any edema or pain of the lower extremity. Denies symptoms of headache. Fever is noted low grade at 100 degrees Fahrenheit or so. Remaining systems review for the patient was noted negative. OBJECTIVE: VITAL SIGNS: Shows temperature noted 100.4 degree Fahrenheit, normal temperature, respiratory rate 15-20, heart rate of 63-59, blood pressure 146/51 to 134/31. Pulse ox saturation on 3 liters nasal cannula 96% saturation. HEENT: Shows head was atraumatic, eyes nonicterus. NECK: Supple. CARDIOVASCULAR: S1, S2 audible. LUNGS: The patient was noted without any crackles. The breaths are noted mild to moderate decreased bilaterally. ABDOMEN: Soft, nontender. Bowel sounds present. EXTREMITIES: The patient was noted with chronic obesity. There was no edema. VISIBLE SKIN: No lesions or rashes. MUSCULOSKELETAL SYMPTOMS: Without any acute deformities. CENTRAL NERVOUS SYSTEM: Nonfocal. LABORATORY DATA: BMP today: BUN 16, creatinine 1.04. CBC for this patient was noted with WBC count 10.6, hemoglobin 8.4, hematocrit 27.8, platelet count 177,000. Urine culture was noted large growth of E. coli, the patient was also noted with ESBL species. IMPRESSION: 1. Acute bilateral pneumonia with nodular noted with hemoptysis. 2. The patient with colonization most likely of the bladder with ESBL species. 3. Chronic anticoagulation noted with atrial fibrillation. 4. History of type 2 diabetes mellitus. 5. Dementia. 6. Obstructive sleep apnea disorder. PLAN OF MANAGEMENT: Continue current antibiotics, bronchodilators and oxygen supplementation. Bronchoscopy will be done today. Adjustment in antibiotics will be done for the patient after the completion of bronchoscopy and bronchial washing cultures. Supportive care, other therapy, plan of management and care plan. Usual treatment and all other additional treatment and therapies. [place], [place] PROGRESS NOTE NAME: HALINA CORTES UNIT #: [id number] ROOM: 509 DOCTOR: AUGUSTO KENNEY MD BIRTHDATE: [birth year] AUGUSTO RUSH MD CM:MONICA [id number] AUGUSTO MARTINEZ MD 03/08/18 1137 interface
--- NOTE | ~2018-03-05 | PR ---
[place], [place] PROGRESS NOTE NAME: HALINA CORTES [facility] #: [id number] UNIT #: [id number] ROOM: 509 DOCTOR: VICTOR MANUEL MARTINEZ MD,AUGUSTO BIRTHDATE: [birth year] DOS: 03/11/2018 SUBJECTIVE: She has been noted comfortable at this time, still noticed some wheezing. The patient had nonproductive cough, getting physical therapy. There were no symptoms of chest pain or hemoptysis. OBJECTIVE: VITAL SIGNS: Normal temperature, respiratory rate 20, heart rate 58, blood pressure 152/52. Pulse ox saturation on 3 liters nasal cannula 99% saturation. HEENT: Atraumatic. Eyes nonicterus. CARDIOVASCULAR: S1, S2 LUNGS: Moderate decreased breath sounds with expiratory wheezing, [id number]. There were no crackles. ABDOMEN: Soft and obese. EXTREMITIES: No edema. IMPRESSION: 1. The patient with resolving acute pneumonia clinical radiologically with resolving exacerbation of chronic obstructive pulmonary disease. 2. Severe debility, persistent. PLAN AND RECOMMENDATIONS: For Care Home Facility for the patient for further medical management, discussed with the family members about that. Continue in the meantime, other supportive plan and management of the change in treatment will be necessary. AUGUSTO RUSH MD CM:PNTRANS [phone] AUGUSTO MARTINEZ MD 05/17/18 0813 interface
[2018-03-05 23:38] VITALS: BP 152/73
[2018-03-06 00:18] LABS: BASO # 0.1 10*3/uL (0.0-0.1); BASO % 0.3 % (0.0-1.0); EOS # 0.1 10*3/uL (0.0-0.4); EOS % 0.5 % (1.0-4.0); HEMATOCRIT 35.8 % (37.0-47.0); HEMOGLOBIN 10.7 g/dl (12.0-16.0); MEAN CELL VOLUME 81.5 fl (81.0-99.0); MEAN CORPUSCULAR HGB 24.4 pg (27.0-31.0); MEAN CORPUSCULAR HGB CONC 29.9 g/dl (33.0-37.0); MONO # 1.1 10*3/uL (0.1-1.0); MONO % 6.3 % (3.0-9.0); NEUT # 13.6 10*3/uL (2.3-7.9); NEUT % 80.6 % (47.0-73.0); PLATELET COUNT AUTOMATED 217 10*3/uL (130-400); RED BLOOD COUNT 4.39 10*6/uL (4.10-5.10); RED CELL DISTRI WIDTH 16.5 % (0-14.5); WHITE BLOOD COUNT 16.9 10*3/uL (4.8-10.8)
[2018-03-06 00:30] LABS: INTERNATIONAL NORM RATIO 1.1 (2.0-3.5)
[2018-03-06 00:36] LABS: ALBUMIN 3.7 gm/dl (3.1-4.5); CREATININE 1.53 mg/dL (0.55-1.02); POTASSIUM 4.4 mmol/L (3.5-5.1); TOTAL PROTEIN 7.1 gm/dL (6.4-8.2); TROPONIN I 0.029 ng/ml (<0.045)
[2018-03-06 00:57] VITALS: BP 152/58
[2018-03-06 01:45] VITALS: BP 155/58
[2018-03-06] MEDS ORDERED: INCRUSE ELLI62.5 MCG INH (01:45)
[2018-03-06 02:33] LABS: BILIRUBIN NEGATIVE (NEGATIVE); BLOOD NEGATIVE (NEGATIVE); CLARITY CLEAR (CLEAR); COLOR YELLOW (YELLOW); GLUCOSE NEGATIVE (NEGATIVE); KETONE NEGATIVE (NEGATIVE); LEUKO ESTERASE TRACE (NEGATIVE); NITRITE NEGATIVE (NEGATIVE); UROBILINOGEN 0.2 E.U./dl (0.2-1.0)
[2018-03-06 02:41] LABS: BACTERIA 3+
[2018-03-06 06:33] LABS: BASO % 0.3 % (0.0-1.0); EOS % 0.1 % (1.0-4.0); HEMOGLOBIN 8.8 g/dl (12.0-16.0); LYMPH # 2.9 10*3/uL (1.3-4.4); LYMPH % 19.2 % (27.0-41.0); MEAN CELL VOLUME 80.9 fl (81.0-99.0); MEAN CORPUSCULAR HGB 24.3 pg (27.0-31.0); MEAN PLATELET VOLUME 10.2 fl (9.6-12.3); MONO # 1.2 10*3/uL (0.1-1.0); MONO % 7.6 % (3.0-9.0); NEUT % 72.4 % (47.0-73.0); PLATELET COUNT AUTOMATED 195 10*3/uL (130-400); RED BLOOD COUNT 3.62 10*6/uL (4.10-5.10); RED CELL DISTRI WIDTH 16.6 % (0-14.5); WHITE BLOOD COUNT 15.2 10*3/uL (4.8-10.8)
[2018-03-06 06:40] LABS: HEMATOCRIT 29.3 % (37.0-47.0)
[2018-03-06 06:47] LABS: CREATININE 1.36 mg/dL (0.55-1.02); PHOSPHOROUS 3.2 mg/dL (2.5-4.9); POTASSIUM 4.3 mmol/L (3.5-5.1)
[2018-03-06 08:00] VITALS: BP 140/43
[2018-03-06 12:00] VITALS: BP 124/35
[2018-03-06 16:00] VITALS: BP 130/50
[2018-03-06 20:00] VITALS: BP 153/80
[2018-03-07] VITALS: BP 186/62
[2018-03-07 07:01] LABS: BASO % 0.2 % (0.0-1.0); CREATININE 1.09 mg/dL (0.55-1.02); EOS # 0.1 10*3/uL (0.0-0.4); EOS % 0.9 % (1.0-4.0); HEMATOCRIT 29.4 % (37.0-47.0); HEMOGLOBIN 8.7 g/dl (12.0-16.0); LYMPH # 3.2 10*3/uL (1.3-4.4); LYMPH % 26.3 % (27.0-41.0); MEAN CELL VOLUME 81.4 fl (81.0-99.0); MEAN CORPUSCULAR HGB 24.1 pg (27.0-31.0); MEAN CORPUSCULAR HGB CONC 29.6 g/dl (33.0-37.0); MONO # 1.1 10*3/uL (0.1-1.0); MONO % 9.4 % (3.0-9.0); NEUT # 7.6 10*3/uL (2.3-7.9); NEUT % 62.9 % (47.0-73.0); PLATELET COUNT AUTOMATED 182 10*3/uL (130-400); POTASSIUM 4.8 mmol/L (3.5-5.1); RED BLOOD COUNT 3.61 10*6/uL (4.10-5.10); RED CELL DISTRI WIDTH 16.8 % (0-14.5); WHITE BLOOD COUNT 12.2 10*3/uL (4.8-10.8)
[2018-03-07 08:00] VITALS: BP 155/44
[2018-03-07 12:00] VITALS: BP 110/50
[2018-03-07 16:00] VITALS: BP 130/39
[2018-03-07 20:00] VITALS: BP 124/78
[2018-03-08] VITALS (9 sets, daily range): BP systolic 116–146; BP diastolic 31–60
[2018-03-08 06:52] LABS: BASO % 0.4 % (0.0-1.0); EOS # 0.3 10*3/uL (0.0-0.4); EOS % 2.6 % (1.0-4.0); HEMATOCRIT 27.8 % (37.0-47.0); HEMOGLOBIN 8.4 g/dl (12.0-16.0); LYMPH # 2.3 10*3/uL (1.3-4.4); LYMPH % 21.5 % (27.0-41.0); MEAN CORPUSCULAR HGB 24.5 pg (27.0-31.0); MEAN CORPUSCULAR HGB CONC 30.2 g/dl (33.0-37.0); MEAN PLATELET VOLUME 10.4 fl (9.6-12.3); MONO # 0.9 10*3/uL (0.1-1.0); MONO % 8.2 % (3.0-9.0); NEUT # 7.1 10*3/uL (2.3-7.9); NEUT % 66.9 % (47.0-73.0); PLATELET COUNT AUTOMATED 177 10*3/uL (130-400); RED BLOOD COUNT 3.43 10*6/uL (4.10-5.10); RED CELL DISTRI WIDTH 16.8 % (0-14.5); WHITE BLOOD COUNT 10.6 10*3/uL (4.8-10.8)
[2018-03-08 07:04] LABS: IMMUNOGLOBULIN M, QNT 44 mg/dL (26-217); RHEUMATOID ARTHRITIS FACTOR 29.5 IU/mL (0.0-13.9)
[2018-03-08 07:21] LABS: ALBUMIN 2.7 gm/dl (3.1-4.5); ALKALINE PHOSPHATASE 65 U/L (45-117); BUN 16 mg/dl (7-24); CHLORIDE 110 mmol/L (98-107); CREATININE 1.04 mg/dL (0.55-1.02); POTASSIUM 4.3 mmol/L (3.5-5.1); SGOT/AST 20 IU/L (3-35); SGPT/ALT 26 U/L (12-78); SODIUM 143 mmol/L (136-145); TOTAL PROTEIN 5.8 gm/dL (6.4-8.2)
[2018-03-08 14:04] LABS: ALDOLASE 002030 4.6 U/L (3.3-10.3); ANGIOTENSIN-CONVERTING ENZYME <15 U/L (14-82)
[2018-03-08 15:07] LABS: ATYPICAL PANCA <1:20 titer (Neg:<1:20); CYTOPLASMIC (C-ANCA) <1:20 titer (Neg:<1:20)
[2018-03-08 22:03] LABS: IGG SUBCLASS 1 328 mg/dL (248-810); IGG SUBCLASS 2 25 mg/dL (130-555); IGG SUBCLASS 3 21 mg/dL (15-102); IGG SUBCLASS 4 3 mg/dL (2-96); IMMUNOGLOBULIN G, QNT 418 mg/dL (700-1600)
[2018-03-09] VITALS: BP 147/59
[2018-03-09 07:21] LABS: BASO % 0.4 % (0.0-1.0); EOS # 0.2 10*3/uL (0.0-0.4); EOS % 1.4 % (1.0-4.0); HEMATOCRIT 28.3 % (37.0-47.0); HEMOGLOBIN 8.4 g/dl (12.0-16.0); LYMPH # 1.9 10*3/uL (1.3-4.4); LYMPH % 17.7 % (27.0-41.0); MEAN CELL VOLUME 81.1 fl (81.0-99.0); MEAN CORPUSCULAR HGB 24.1 pg (27.0-31.0); MEAN CORPUSCULAR HGB CONC 29.7 g/dl (33.0-37.0); MEAN PLATELET VOLUME 10.1 fl (9.6-12.3); MONO # 0.9 10*3/uL (0.1-1.0); MONO % 8.5 % (3.0-9.0); NEUT # 7.8 10*3/uL (2.3-7.9); NEUT % 71.5 % (47.0-73.0); PLATELET COUNT AUTOMATED 214 10*3/uL (130-400); RED BLOOD COUNT 3.49 10*6/uL (4.10-5.10); RED CELL DISTRI WIDTH 16.5 % (0-14.5); WHITE BLOOD COUNT 10.9 10*3/uL (4.8-10.8)
[2018-03-09 07:34] LABS: CHLORIDE 112 mmol/L (98-107); POTASSIUM 4.7 mmol/L (3.5-5.1); SODIUM 144 mmol/L (136-145)
[2018-03-09 07:36] LABS: BUN 15 mg/dl (7-24); CREATININE 0.92 mg/dL (0.55-1.02)
[2018-03-09 08:00] VITALS: BP 152/44
[2018-03-09 12:00] VITALS: BP 94/40
[2018-03-09 13:07] LABS: IMMUNOGLOBULIN IgE 002170 16 IU/mL (0-100)
[2018-03-09 14:09] LABS: ACID FAST SPEC PROCESSING Concentration (.)
[2018-03-09 16:00] VITALS: BP 121/49
[2018-03-09 20:00] VITALS: BP 129/46
[2018-03-10] VITALS: BP 131/50
[2018-03-10 07:44] LABS: BASO % 0.4 % (0.0-1.0); EOS # 0.3 10*3/uL (0.0-0.4); EOS % 2.8 % (1.0-4.0); HEMATOCRIT 28.1 % (37.0-47.0); HEMOGLOBIN 8.4 g/dl (12.0-16.0); LYMPH % 30.7 % (27.0-41.0); MEAN CELL VOLUME 81.2 fl (81.0-99.0); MEAN CORPUSCULAR HGB 24.3 pg (27.0-31.0); MEAN CORPUSCULAR HGB CONC 29.9 g/dl (33.0-37.0); MEAN PLATELET VOLUME 10.2 fl (9.6-12.3); MONO % 9.9 % (3.0-9.0); NEUT # 5.4 10*3/uL (2.3-7.9); NEUT % 55.7 % (47.0-73.0); PLATELET COUNT AUTOMATED 233 10*3/uL (130-400); RED BLOOD COUNT 3.46 10*6/uL (4.10-5.10); RED CELL DISTRI WIDTH 16.4 % (0-14.5); WHITE BLOOD COUNT 9.6 10*3/uL (4.8-10.8)
[2018-03-10 08:00] VITALS: BP 122/50
[2018-03-10 08:01] LABS: BUN 18 mg/dl (7-24); CHLORIDE 111 mmol/L (98-107); CREATININE 1.04 mg/dL (0.55-1.02); POTASSIUM 4.4 mmol/L (3.5-5.1); SODIUM 144 mmol/L (136-145)
[2018-03-10 12:00] VITALS: BP 136/61
[2018-03-10 16:00] VITALS: BP 124/35
[2018-03-10 20:00] VITALS: BP 145/64
[2018-03-11] VITALS: BP 172/59
[2018-03-11 03:26] VITALS: BP 150/70
[2018-03-11 06:58] LABS: BASO % 0.2 % (0.0-1.0); EOS % 0.1 % (1.0-4.0); HEMATOCRIT 26.9 % (37.0-47.0); HEMOGLOBIN 8.2 g/dl (12.0-16.0); LYMPH # 2.3 10*3/uL (1.3-4.4); LYMPH % 21.5 % (27.0-41.0); MEAN CELL VOLUME 80.3 fl (81.0-99.0); MEAN CORPUSCULAR HGB 24.5 pg (27.0-31.0); MEAN CORPUSCULAR HGB CONC 30.5 g/dl (33.0-37.0); MEAN PLATELET VOLUME 9.7 fl (9.6-12.3); MONO # 0.7 10*3/uL (0.1-1.0); MONO % 6.6 % (3.0-9.0); NEUT # 7.5 10*3/uL (2.3-7.9); NEUT % 71.1 % (47.0-73.0); PLATELET COUNT AUTOMATED 214 10*3/uL (130-400); RED BLOOD COUNT 3.35 10*6/uL (4.10-5.10); RED CELL DISTRI WIDTH 16.1 % (0-14.5); WHITE BLOOD COUNT 10.5 10*3/uL (4.8-10.8)
[2018-03-11 07:22] LABS: BUN 23 mg/dl (7-24); CHLORIDE 109 mmol/L (98-107); POTASSIUM 4.6 mmol/L (3.5-5.1); SODIUM 143 mmol/L (136-145)
[2018-03-11 08:00] VITALS: BP 122/52; BP 152/52
[2018-03-11 12:00] VITALS: BP 152/78
[2018-03-11 16:00] VITALS: BP 175/72
[2018-03-11 20:00] VITALS: BP 164/58
[2018-03-12] VITALS: BP 156/80
[2018-03-12 08:00] VITALS: BP 142/88
[2018-03-12 12:00] VITALS: BP 135/70
[2018-03-12 12:17] LABS: ABG BASE EXCESS 1.2 mmol/L (-2.0-2.0); ABG HCO3 26.5 mmol/l (22-26); ABG O2 SATURATION 96.1 % (95-97); ARTERIAL BLOOD GAS PCO2 48.4 mmHg (35-45); ARTERIAL BLOOD GAS PH 7.357 (7.35-7.45); ARTERIAL BLOOD GAS PO2 86.9 mmHg (80-90)
[2018-03-12 16:00] VITALS: BP 130/64
[2018-03-12 20:00] VITALS: BP 138/49
[2018-03-13] VITALS: BP 145/48
[2018-03-13 08:00] VITALS: BP 161/60
[2018-03-13 12:00] VITALS: BP 150/52
[2018-03-13 16:00] VITALS: BP 146/51
[2018-03-13 20:00] VITALS: BP 155/58
[2018-03-14] VITALS: BP 158/54
[2018-03-14 07:39] LABS: HEMATOCRIT 29.8 % (37.0-47.0); HEMOGLOBIN 8.9 g/dl (12.0-16.0); MEAN CELL VOLUME 80.8 fl (81.0-99.0); MEAN CORPUSCULAR HGB 24.1 pg (27.0-31.0); MEAN CORPUSCULAR HGB CONC 29.9 g/dl (33.0-37.0); MEAN PLATELET VOLUME 9.9 fl (9.6-12.3); PLATELET COUNT AUTOMATED 342 10*3/uL (130-400); RED BLOOD COUNT 3.69 10*6/uL (4.10-5.10); RED CELL DISTRI WIDTH 16.5 % (0-14.5)
[2018-03-14 07:57] LABS: CREATININE 1.1 mg/dL (0.55-1.02); POTASSIUM 4.3 mmol/L (3.5-5.1); TOTAL PROTEIN 6.2 gm/dL (6.4-8.2)
[2018-03-14 08:00] VITALS: BP 152/56
[2018-03-14 08:05] LABS: TOTAL CELLS COUNTED 100 #CELLS
[2018-03-14 08:06] LABS: BURR CELLS FEW; OVALOCYTES MODERATE; PLATELET SUFFICIENCY NORMAL (NORMAL); POLYCHROMASIA SLIGHT
[2018-03-14 12:00] VITALS: BP 125/40
[2018-03-14 16:00] VITALS: BP 156/59
[2018-03-14 20:00] VITALS: BP 160/61
[2018-03-15] VITALS: BP 133/50
[2018-03-15 07:08] LABS: HEMATOCRIT 31.6 % (37.0-47.0); HEMOGLOBIN 9.3 g/dl (12.0-16.0); MEAN CELL VOLUME 81.2 fl (81.0-99.0); MEAN CORPUSCULAR HGB 23.9 pg (27.0-31.0); MEAN CORPUSCULAR HGB CONC 29.4 g/dl (33.0-37.0); MEAN PLATELET VOLUME 9.7 fl (9.6-12.3); PLATELET COUNT AUTOMATED 381 10*3/uL (130-400); RED BLOOD COUNT 3.89 10*6/uL (4.10-5.10); RED CELL DISTRI WIDTH 16.5 % (0-14.5); WHITE BLOOD COUNT 16.9 10*3/uL (4.8-10.8)
[2018-03-15 07:18] LABS: ALBUMIN 3.1 gm/dl (3.1-4.5); ALKALINE PHOSPHATASE 76 U/L (45-117); BUN 31 mg/dl (7-24); CHLORIDE 106 mmol/L (98-107); CREATININE 1.05 mg/dL (0.55-1.02); POTASSIUM 4.1 mmol/L (3.5-5.1); SGOT/AST 18 IU/L (3-35); SGPT/ALT 30 U/L (12-78); SODIUM 140 mmol/L (136-145); TOTAL PROTEIN 5.9 gm/dL (6.4-8.2)
[2018-03-15 07:38] LABS: ACANTHOCYTES FEW; OVALOCYTES FEW; PLATELET SUFFICIENCY NORMAL (NORMAL); POLYCHROMASIA SLIGHT; SCHISTOCYTES FEW; TOTAL CELLS COUNTED 100 #CELLS
[2018-03-15 08:00] VITALS: BP 153/55
[2018-03-15 12:00] VITALS: BP 143/46
[2018-03-15] MEDS ORDERED: PREDNISONE10 MG PO (12:44)
[2018-04-20 11:03] LABS: ACID FAST CULTURE Negative (.)
[2018-05-05] MEDS ORDERED: NORCO 5-325 TA1 EACH PO (16:32)
[2018-05-05] MEDS ORDERED: FERROUS SULFAT325 MG PO (16:35)
[2018-05-05] MEDS ORDERED: XANAX0.25 MG PO (16:48)
[2018-05-07] MEDS ORDERED: DULCOLAX10 M1 R (01:57)
[2018-05-07] MEDS ORDERED: MOM30 M1 PO (02:04)
[2018-05-07] MEDS ORDERED: OS-CAL 500+D31 EACH PO (02:12)
[2018-05-09] MEDS ORDERED: Humalog SQ (11:44)
[2018-05-09] MEDS ORDERED: Nystatin Cream15 GM T (11:44)
[2018-05-09] MEDS ORDERED: RIVASTIGMINE1 EACH T (11:44)
[2018-05-09] MEDS ORDERED: NORCO 5-325 TA1 EACH PO (11:44)
[2018-05-09] MEDS ORDERED: XANAX0.25 MG PO (11:44)
[2018-05-14] MEDS ORDERED: VIBRAMYCIN100 MG PO (18:28)
== END 2018-03-15 16:24 | disposition other institution (70) | DRG 177 ==
LOC: ED 23:35 → 5E 03-06 01:11 → EDHOLD 03-06 01:11 → 5E 03-06 01:18
PROVIDERS: Emergency Medicine; Internal Medicine; Internal Medicine Critical Care Medicine; Internal Medicine Hospice and Palliative Medicine; Student in an Organized Health Care Education/Training Program
PROC: 0BC48ZZ Extirpation of Matter from Right Upper Lobe Bronchus, Via Natural or Artificial Opening Endoscopic (ICD-10-PCS; principal; 2018-03-08)
PROC: 0BC98ZZ Extirpation of Matter from Lingula Bronchus, Via Natural or Artificial Opening Endoscopic (ICD-10-PCS; principal; 2018-03-08)
PROC: 0BC18ZZ Extirpation of Matter from Trachea, Via Natural or Artificial Opening Endoscopic (ICD-10-PCS; principal; 2018-03-08)
PROC: 0BC58ZZ Extirpation of Matter from Right Middle Lobe Bronchus, Via Natural or Artificial Opening Endoscopic (ICD-10-PCS; principal; 2018-03-08)
PROC: 0BC38ZZ Extirpation of Matter from Right Main Bronchus, Via Natural or Artificial Opening Endoscopic (ICD-10-PCS; principal; 2018-03-08)
PROC: 0BC88ZZ Extirpation of Matter from Left Upper Lobe Bronchus, Via Natural or Artificial Opening Endoscopic (ICD-10-PCS; principal; 2018-03-08)
PROC: 0BCB8ZZ Extirpation of Matter from Left Lower Lobe Bronchus, Via Natural or Artificial Opening Endoscopic (ICD-10-PCS; principal; 2018-03-08)
PROC: 0BC68ZZ Extirpation of Matter from Right Lower Lobe Bronchus, Via Natural or Artificial Opening Endoscopic (ICD-10-PCS; principal; 2018-03-08)
PROC: 0BC78ZZ Extirpation of Matter from Left Main Bronchus, Via Natural or Artificial Opening Endoscopic (ICD-10-PCS; principal; 2018-03-08)
PROC: 5A09357 Assistance with Respiratory Ventilation, Less than 24 Consecutive Hours, Continuous Positive Airway Pressure (ICD-10-PCS; 2018-03-14)
DX: J15.6 Pneumonia due to other Gram-negative bacteria (principal); N17.0 Acute kidney failure with tubular necrosis; J96.21 Acute and chronic respiratory failure with hypoxia; E43 Unspecified severe protein-calorie malnutrition; T17.590A Other foreign object in bronchus causing asphyxiation, initial encounter; D68.69 Other thrombophilia; E11.22 Type 2 diabetes mellitus with diabetic chronic kidney disease; E11.65 Type 2 diabetes mellitus with hyperglycemia; J96.22 Acute and chronic respiratory failure with hypercapnia; I50.32 Chronic diastolic (congestive) heart failure; I13.0 Hypertensive heart and chronic kidney disease with heart failure and stage 1 through stage 4 chronic kidney disease, or unspecified chronic kidney disease; R04.2 Hemoptysis; J44.1 Chronic obstructive pulmonary disease with (acute) exacerbation; N39.0 Urinary tract infection, site not specified; J44.0 Chronic obstructive pulmonary disease with (acute) lower respiratory infection; Z68.1 Body mass index [BMI] 19.9 or less, adult; E87.8 Other disorders of electrolyte and fluid balance, not elsewhere classified; E66.01 Morbid (severe) obesity due to excess calories; I48.0 Paroxysmal atrial fibrillation; E55.9 Vitamin D deficiency, unspecified; F32.9 Major depressive disorder, single episode, unspecified; I25.10 Atherosclerotic heart disease of native coronary artery without angina pectoris; N18.3 Chronic kidney disease, stage 3 (moderate); G40.909 Epilepsy, unspecified, not intractable, without status epilepticus; B96.20 Unspecified Escherichia coli [E. coli] as the cause of diseases classified elsewhere; X58.XXXA Exposure to other specified factors, initial encounter; F41.9 Anxiety disorder, unspecified; F17.210 Nicotine dependence, cigarettes, uncomplicated; D64.9 Anemia, unspecified; G47.33 Obstructive sleep apnea (adult) (pediatric); E83.41 Hypermagnesemia; M19.90 Unspecified osteoarthritis, unspecified site; R91.1 Solitary pulmonary nodule; G30.9 Alzheimer's disease, unspecified; F02.80 Dementia in other diseases classified elsewhere, unspecified severity, without behavioral disturbance, psychotic disturbance, mood disturbance, and anxiety; Z88.2 Allergy status to sulfonamides; Z79.82 Long term (current) use of aspirin; Z87.81 Personal history of (healed) traumatic fracture; Z79.899 Other long term (current) drug therapy; Z98.41 Cataract extraction status, right eye; Z98.42 Cataract extraction status, left eye; Z99.81 Dependence on supplemental oxygen; Z90.710 Acquired absence of both cervix and uterus; Z95.818 Presence of other cardiac implants and grafts; Z80.3 Family history of malignant neoplasm of breast; Z82.49 Family history of ischemic heart disease and other diseases of the circulatory system; Z83.3 Family history of diabetes mellitus; Z83.79 Family history of other diseases of the digestive system; Y93.89 Activity, other specified; Y92.89 Other specified places as the place of occurrence of the external cause; Y99.8 Other external cause status

== ENCOUNTER 2018-03-17 01:30 | Emergency (ER) | payer MEDICARE, OTHER ==
[~2018-03-17] VITALS: Ht 142.2 cm; Wt 91.6 kg
[~2018-03-17 01:30] MED LIST changes: +INCRUSE ELLI62.5 MCG INH
[2018-03-17 01:53] LABS: HEMATOCRIT 34.4 % (37.0-47.0); HEMOGLOBIN 10.6 g/dl (12.0-16.0); MEAN CELL VOLUME 78.7 fl (81.0-99.0); MEAN CORPUSCULAR HGB 24.3 pg (27.0-31.0); MEAN CORPUSCULAR HGB CONC 30.8 g/dl (33.0-37.0); MEAN PLATELET VOLUME 9.2 fl (9.6-12.3); PLATELET COUNT AUTOMATED 391 10*3/uL (130-400); RED BLOOD COUNT 4.37 10*6/uL (4.10-5.10); RED CELL DISTRI WIDTH 16.8 % (0-14.5); WHITE BLOOD COUNT 15.1 10*3/uL (4.8-10.8)
[2018-03-17 02:02] LABS: ACT PARTIAL THROMBO TIME 34.3 SECONDS (20.8-31.5); INTERNATIONAL NORM RATIO 1.3 (2.0-3.5)
[2018-03-17 02:09] LABS: ALBUMIN 3.3 gm/dl (3.1-4.5); CREATININE 1.12 mg/dL (0.55-1.02); POTASSIUM 4.3 mmol/L (3.5-5.1)
[2018-03-17 02:14] LABS: BASOPHILS 1 % (0-1); PLATELET SUFFICIENCY NORMAL (NORMAL); TOTAL CELLS COUNTED 100 #CELLS
[2018-03-17 02:15] LABS: OVALOCYTES FEW; POLYCHROMASIA SLIGHT; SCHISTOCYTES FEW
[2018-03-17 02:50] VITALS: BP 143/70
[2018-03-17] MEDS ORDERED: VICODIN 5-3001 EACH PO (04:12)
== END 2018-03-17 04:46 | disposition other institution (70) ==
LOC: ED 01:30
PROVIDERS: Nurse Practitioner
DX: S86.912A Strain of unspecified muscle(s) and tendon(s) at lower leg level, left leg, initial encounter (principal); S80.02XA Contusion of left knee, initial encounter; S20.211A Contusion of right front wall of thorax, initial encounter; S00.83XA Contusion of other part of head, initial encounter; S09.90XA Unspecified injury of head, initial encounter; I25.10 Atherosclerotic heart disease of native coronary artery without angina pectoris; I13.0 Hypertensive heart and chronic kidney disease with heart failure and stage 1 through stage 4 chronic kidney disease, or unspecified chronic kidney disease; E11.22 Type 2 diabetes mellitus with diabetic chronic kidney disease; N18.3 Chronic kidney disease, stage 3 (moderate); I50.30 Unspecified diastolic (congestive) heart failure; E78.00 Pure hypercholesterolemia, unspecified; E66.01 Morbid (severe) obesity due to excess calories; G47.33 Obstructive sleep apnea (adult) (pediatric); I48.91 Unspecified atrial fibrillation; Z90.710 Acquired absence of both cervix and uterus; Z95.5 Presence of coronary angioplasty implant and graft; Z79.899 Other long term (current) drug therapy; Z88.2 Allergy status to sulfonamides; Z79.82 Long term (current) use of aspirin; Z79.01 Long term (current) use of anticoagulants; W06.XXXA Fall from bed, initial encounter; Y93.89 Activity, other specified; Y92.89 Other specified places as the place of occurrence of the external cause; Y99.9 Unspecified external cause status

== ENCOUNTER → 2018-04-22 | Outpatient (CLI) | payer MEDICARE, OTHER ==
[~2018-04-22] MED LIST changes: +DULCOLAX10 M1 R; +FERROUS SULFAT325 MG PO; +Humalog SQ; +MOM30 M1 PO; +NORCO 5-325 TA1 EACH PO; +Nystatin Cream15 GM T; +OS-CAL 500+D31 EACH PO; +RIVASTIGMINE1 EACH T; +VICODIN 5-3001 EACH PO; +XANAX0.25 MG PO
== END | disposition home or self-care (01) ==
LOC: CT 09:34
DX: I25.10 Atherosclerotic heart disease of native coronary artery without angina pectoris (principal); J18.9 Pneumonia, unspecified organism; R91.1 Solitary pulmonary nodule; J44.9 Chronic obstructive pulmonary disease, unspecified

== ENCOUNTER 2018-05-28 11:42 | Inpatient (IN) | payer MEDICARE, OTHER ==
[2018-05-28] VITALS (7 sets, daily range): BP systolic 100–156; BP diastolic 22–63
[~2018-05-28] VITALS: Ht 152.4 cm; Wt 95.4 kg
--- NOTE | ~2018-05-28 | CON ---
[place], [place] REPORT OF CONSULTATION NAME: HALINA CORTES UNIT #: [id number] ROOM: 508 DOCTOR: CELESTINA, PHD HALINA BIRTHDATE: [birth year] DOS: 06/01/2018 Attempting to consult the patient twice as per Dr. Ren, and the patient has been minimally responsive. We will continue to follow. Judit Jimenez, PhD CM:CONSTR:REPORT OF CONSULTATION 1714 06/02/18 0739 interface
--- NOTE | ~2018-05-28 | EKG ---
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
--- NOTE | ~2018-05-28 | PR ---
[place], [place] PROGRESS NOTE [id number] #: [id number] ROOM: 508 DOCTOR: PHD HALINA JIMENEZ BIRTHDATE: [birth year] DOS: 06/07/2018 I called up with the patient today to reassess for appropriateness for the [facility] Behavior[facility] Unit. The patient was sitting in her chair, in no apparent distress. She is awake, alert and oriented to person and place, but continued to demonstrate significant confusion. She could not provide her date, the president or any current events. Generally, her responses to questions were not pertinent to topic and were nonsensical. Speech was noteworthy for stammering. Affect was blunted and mood was stable. She denied suicidal and homicidal ideation. There was no evidence of overt hallucinations or delusions. Insight and judgment were poor. Given her present level of confusion and apparent continued delirium, she does not appear to be an appropriate candidate for the [facility] Unit at this time. I would be happy to reassess the patient should her status change with respect to discharge to highly structured and supervised environment would likely be best for this patient given her significant health concerns. Judit Jimenez, PhD CM:MONICA [phone] PHD HALINA JIMENEZ 06/07/182214 interface
--- NOTE | ~2018-05-28 | PR ---
[place], [place] PROGRESS NOTE NAME: SEBASTIANHALINA Leanne UNIT #: [id number] ROOM: 508 DOCTOR: CELESTINA, PHD HALINA BIRTHDATE: [birth year] DOS: 06/02/2018 SUBJECTIVE: Attempted to follow up with the patient today. She continued to be minimally responsive and unable to participate in the evaluation. Judit Jimenez, PhD CM:MONICA [phone] PHD HALINA JIMENEZ 06/03/18 0303 interface
--- NOTE | ~2018-05-28 | CON ---
[place], [place] REPORT OF CONSULTATION NAME: HALINA CORTES [facility] #: [id number] UNIT #: [id number] ROOM: 508 DOCTOR: DALIA GRIGSBY ED.D (LIZZIE) BIRTHDATE: [birth year] DOS: 06/06/2018 HISTORY OF PRESENT ILLNESS: The patient is a 72-year-old female referred by the hospitalist for an evaluation for possible transfer to the Behavioral Health Unit or back to the [facility]. At the present time, she is on the 5th floor at [facility]. This patient could not name her family physician. I am uncertain of her drug or alcohol use or abuse or smoking, but her medical history includes COPD, coronary artery disease, major depressive disorder, atrial fibrillation, congestive heart failure, vitamin D deficiency, bradycardia, osteoarthritis, chronic kidney disease, closed head injury and diabetes mellitus type 2 and urinary tract infection, metabolic encephalopathy, dehydration and urinary incontinence. MEDICATIONS: Include insulin, albuterol, atorvastatin, Xarelto, Celexa, Exelon, Victoza, vitamin D, ferrous sulfate, aspirin, potassium chloride and lisinopril. PHYSICAL EXAMINATION: This patient was awake and alert. She could not tell me where she was or tell me what the date was. She was extremely confused. Apparently, she has had chronic urinary tract infections and appears to be continuing to go through delirium. At the present time, it is impossible to make a decision about her disposition, but she is clearly not ready to go down to the Behavioral Health Unit at this time. It is unlikely she will be able to go home as her family did want to take her home, but it would be extremely difficult to care for her there due to the fact that she requires chronic significant care. DIAGNOSIS: 1. Major depressive disorder, recurrent. 2. Delirium, not otherwise specified. RECOMMENDATIONS: Dr. Jimenez will reevaluate this patient on May the to determine whether or not she can go to the Behavioral Health Unit or possibly return to the [facility] or go home. Thank you very much for this consult. DALIA GRIGSBY ED.D CM:CONSTR:REPORT OF CONSULTATION 1723 06/07/18 0437 interface
[2018-05-28] MEDS ORDERED: ATIVAN0.5 MG PO (12:05)
[2018-05-28] MEDS ORDERED: ARNUITY ELLIP100 MCG INH (12:09)
[2018-05-28 12:21] LABS: COLOR YELLOW (YELLOW)
[2018-05-28 12:22] LABS: BACTERIA 4+; BILIRUBIN NEGATIVE (NEGATIVE); BLOOD NEGATIVE (NEGATIVE); CLARITY CLOUDY (CLEAR); GLUCOSE NEGATIVE (NEGATIVE); KETONE NEGATIVE (NEGATIVE); LEUKO ESTERASE TRACE (NEGATIVE); NITRITE NEGATIVE (NEGATIVE); PH 7.5 (5.0-9.0); UROBILINOGEN 0.2 E.U./dl (0.2-1.0); WBC 16-20 wbc/hpf (0-5)
[2018-05-28 12:26] LABS: BASO # 0.1 10*3/uL (0.0-0.1); BASO % 0.8 % (0.0-1.0); EOS # 0.5 10*3/uL (0.0-0.4); EOS % 6.4 % (1.0-4.0); HEMATOCRIT 32.7 % (37.0-47.0); LYMPH # 3.1 10*3/uL (1.3-4.4); LYMPH % 37.3 % (27.0-41.0); MEAN CELL VOLUME 80.7 fl (81.0-99.0); MEAN CORPUSCULAR HGB 24.7 pg (27.0-31.0); MEAN CORPUSCULAR HGB CONC 30.6 g/dl (33.0-37.0); MEAN PLATELET VOLUME 9.9 fl (9.6-12.3); MONO # 0.6 10*3/uL (0.1-1.0); MONO % 7.5 % (3.0-9.0); NEUT % 47.8 % (47.0-73.0); PLATELET COUNT AUTOMATED 238 10*3/uL (130-400); RED BLOOD COUNT 4.05 10*6/uL (4.10-5.10); RED CELL DISTRI WIDTH 16.4 % (0-14.5); WHITE BLOOD COUNT 8.4 10*3/uL (4.8-10.8)
[2018-05-28 12:28] LABS: ABG BASE EXCESS 2.8 mmol/L (-2.0-2.0); ABG HCO3 27.5 mmol/l (22-26); ABG O2 SATURATION 98.5 % (95-97); ARTERIAL BLOOD GAS PCO2 44.8 mmHg (35-45); ARTERIAL BLOOD GAS PH 7.404 (7.35-7.45)
[2018-05-28 12:34] LABS: ACT PARTIAL THROMBO TIME 35.1 SECONDS (20.8-31.5); INTERNATIONAL NORM RATIO 1.2 (2.0-3.5)
[2018-05-28 12:42] LABS: ALBUMIN 3.3 gm/dl (3.1-4.5); ALKALINE PHOSPHATASE 95 U/L (45-117); BUN 27 mg/dl (7-24); CHLORIDE 107 mmol/L (98-107); CREATININE 1.62 mg/dL (0.55-1.02); LIPASE 144 U/L (73-393); POTASSIUM 4.6 mmol/L (3.5-5.1); SGOT/AST 24 IU/L (3-35); SGPT/ALT 22 U/L (12-78); SODIUM 144 mmol/L (136-145); TOTAL PROTEIN 6.5 gm/dL (6.4-8.2)
[2018-05-28 12:50] LABS: TROPONIN I < 0.015 ng/ml (<0.045)
[2018-05-28 15:30] LABS: URINE AMPHETAMINES < 1000 (1000ng/ml); URINE BARBITURATES < 200 (200ng/ml); URINE BENZODIAZEPINES < 200 (200ng/ml); URINE CANNABINOIDS (THC) < 50 (50ng/ml); URINE COCAINE < 300 (300ng/ml); URINE METHADONE < 300 (300ng/ml); URINE OPIATES < 300 (300ng/ml)
[2018-05-28 15:32] LABS: URINE PHENCYCLIDINE < 25 (25ng/ml)
[2018-05-28] MEDS ORDERED: EXELON1 EAC1 TD (16:42)
[2018-05-28] MEDS ORDERED: FLEET ENEMA 13133 ML R (16:46)
[2018-05-28] MEDS ORDERED: HUMALOG100 UNIT/2 SQ (16:50)
[2018-05-28] MEDS ORDERED: MULTAQ400 MG PO (16:52)
[2018-05-28] MEDS ORDERED: NYSTATIN CREAM15 GM T (16:54)
[2018-05-28] MEDS ORDERED: XARE20MG PO (17:08)
[2018-05-29] VITALS: BP 128/60
[2018-05-29 04:00] VITALS: BP 126/42
[2018-05-29 06:01] LABS: BASO # 0.1 10*3/uL (0.0-0.1); BASO % 0.7 % (0.0-1.0); EOS # 0.5 10*3/uL (0.0-0.4); EOS % 6.3 % (1.0-4.0); HEMATOCRIT 32.4 % (37.0-47.0); HEMOGLOBIN 9.7 g/dl (12.0-16.0); LYMPH # 3.1 10*3/uL (1.3-4.4); LYMPH % 36.6 % (27.0-41.0); MEAN CORPUSCULAR HGB 24.6 pg (27.0-31.0); MEAN CORPUSCULAR HGB CONC 29.9 g/dl (33.0-37.0); MEAN PLATELET VOLUME 10.1 fl (9.6-12.3); MONO # 0.7 10*3/uL (0.1-1.0); MONO % 7.9 % (3.0-9.0); NEUT # 4.1 10*3/uL (2.3-7.9); NEUT % 48.3 % (47.0-73.0); PLATELET COUNT AUTOMATED 222 10*3/uL (130-400); RED BLOOD COUNT 3.95 10*6/uL (4.10-5.10); RED CELL DISTRI WIDTH 16.3 % (0-14.5); WHITE BLOOD COUNT 8.5 10*3/uL (4.8-10.8)
[2018-05-29 06:19] LABS: ALBUMIN 3.2 gm/dl (3.1-4.5); CREATININE 1.33 mg/dL (0.55-1.02); PHOSPHOROUS 3.1 mg/dL (2.5-4.9); TOTAL PROTEIN 6.1 gm/dL (6.4-8.2)
[2018-05-29 06:25] LABS: FREE T4 1.16 ng/dl (0.76-1.46); THYROID STIM HORMONE (HS) 1.56 uIU/ml (0.358-4.75)
[2018-05-29 07:13] LABS: ACT PARTIAL THROMBO TIME 38.7 SECONDS (20.8-31.5); INTERNATIONAL NORM RATIO 1.3 (2.0-3.5)
[2018-05-29 08:00] VITALS: BP 150/40
[2018-05-29] MEDS ORDERED: EXELON1 EACH T (10:11)
[2018-05-29 12:00] VITALS: BP 124/58
[2018-05-29 16:00] VITALS: BP 139/46
[2018-05-29 20:00] VITALS: BP 152/44
[2018-05-30] VITALS: BP 134/88
[2018-05-30 04:03] VITALS: BP 144/80
[2018-05-30 06:09] LABS: BUN 14 mg/dl (7-24); CHLORIDE 113 mmol/L (98-107); CREATININE 1.01 mg/dL (0.55-1.02); POTASSIUM 4.2 mmol/L (3.5-5.1); SODIUM 145 mmol/L (136-145)
[2018-05-30 06:16] LABS: BASO # 0.1 10*3/uL (0.0-0.1); BASO % 0.7 % (0.0-1.0); EOS # 0.2 10*3/uL (0.0-0.4); EOS % 1.8 % (1.0-4.0); HEMATOCRIT 32.9 % (37.0-47.0); HEMOGLOBIN 9.5 g/dl (12.0-16.0); LYMPH # 1.5 10*3/uL (1.3-4.4); LYMPH % 17.3 % (27.0-41.0); MEAN CELL VOLUME 82.9 fl (81.0-99.0); MEAN CORPUSCULAR HGB 23.9 pg (27.0-31.0); MEAN CORPUSCULAR HGB CONC 28.9 g/dl (33.0-37.0); MEAN PLATELET VOLUME 10.1 fl (9.6-12.3); MONO # 0.6 10*3/uL (0.1-1.0); MONO % 7.1 % (3.0-9.0); NEUT # 6.1 10*3/uL (2.3-7.9); NEUT % 72.9 % (47.0-73.0); PLATELET COUNT AUTOMATED 203 10*3/uL (130-400); RED BLOOD COUNT 3.97 10*6/uL (4.10-5.10); RED CELL DISTRI WIDTH 16.2 % (0-14.5); WHITE BLOOD COUNT 8.4 10*3/uL (4.8-10.8)
[2018-05-30 08:00] VITALS: BP 144/70
[2018-05-30 12:00] VITALS: BP 168/40
[2018-05-30 16:00] VITALS: BP 167/68
[2018-05-30 20:00] VITALS: BP 150/48
[2018-05-31] VITALS: BP 144/61
[2018-05-31 04:00] VITALS: BP 130/59
[2018-05-31 04:46] LABS: BUN 11 mg/dl (7-24); CHLORIDE 114 mmol/L (98-107); CREATININE 0.86 mg/dL (0.55-1.02); POTASSIUM 4.1 mmol/L (3.5-5.1); SODIUM 145 mmol/L (136-145)
[2018-05-31 05:47] LABS: BASO # 0.1 10*3/uL (0.0-0.1); BASO % 0.6 % (0.0-1.0); EOS # 0.1 10*3/uL (0.0-0.4); EOS % 1.5 % (1.0-4.0); HEMOGLOBIN 8.2 g/dl (12.0-16.0); LYMPH # 2.2 10*3/uL (1.3-4.4); MEAN CELL VOLUME 81.9 fl (81.0-99.0); MEAN CORPUSCULAR HGB CONC 29.3 g/dl (33.0-37.0); MEAN PLATELET VOLUME 10.3 fl (9.6-12.3); MONO # 0.9 10*3/uL (0.1-1.0); MONO % 9.9 % (3.0-9.0); NEUT # 6.2 10*3/uL (2.3-7.9); NEUT % 64.6 % (47.0-73.0); PLATELET COUNT AUTOMATED 191 10*3/uL (130-400); RED BLOOD COUNT 3.42 10*6/uL (4.10-5.10); RED CELL DISTRI WIDTH 16.5 % (0-14.5); WHITE BLOOD COUNT 9.5 10*3/uL (4.8-10.8)
[2018-05-31 08:00] VITALS: BP 107/56
[2018-05-31 12:00] VITALS: BP 155/56
[2018-05-31 16:00] VITALS: BP 148/56
[2018-05-31 20:00] VITALS: BP 153/48
[2018-06-01] VITALS: BP 131/68
[2018-06-01 06:41] LABS: BUN 11 mg/dl (7-24); CHLORIDE 115 mmol/L (98-107); CREATININE 0.62 mg/dL (0.55-1.02); POTASSIUM 4.3 mmol/L (3.5-5.1); SODIUM 146 mmol/L (136-145)
[2018-06-01 06:43] LABS: BASO # 0.1 10*3/uL (0.0-0.1); BASO % 0.6 % (0.0-1.0); EOS # 0.6 10*3/uL (0.0-0.4); EOS % 7.2 % (1.0-4.0); HEMOGLOBIN 8.4 g/dl (12.0-16.0); LYMPH # 2.4 10*3/uL (1.3-4.4); MEAN CELL VOLUME 81.4 fl (81.0-99.0); MEAN CORPUSCULAR HGB 24.4 pg (27.0-31.0); MEAN PLATELET VOLUME 10.3 fl (9.6-12.3); MONO # 0.9 10*3/uL (0.1-1.0); MONO % 10.4 % (3.0-9.0); NEUT # 4.7 10*3/uL (2.3-7.9); NEUT % 53.5 % (47.0-73.0); PLATELET COUNT AUTOMATED 193 10*3/uL (130-400); RED BLOOD COUNT 3.44 10*6/uL (4.10-5.10); RED CELL DISTRI WIDTH 16.6 % (0-14.5); WHITE BLOOD COUNT 8.7 10*3/uL (4.8-10.8)
[2018-06-01 08:00] VITALS: BP 154/94
[2018-06-01 12:00] VITALS: BP 140/51
[2018-06-01 16:00] VITALS: BP 132/78
[2018-06-01 20:00] VITALS: BP 143/78
[2018-06-02] VITALS: BP 153/47
[2018-06-02 06:42] LABS: BASO # 0.1 10*3/uL (0.0-0.1); BASO % 0.7 % (0.0-1.0); EOS # 0.5 10*3/uL (0.0-0.4); EOS % 5.9 % (1.0-4.0); HEMATOCRIT 28.9 % (37.0-47.0); HEMOGLOBIN 8.6 g/dl (12.0-16.0); LYMPH % 22.4 % (27.0-41.0); MEAN CELL VOLUME 81.9 fl (81.0-99.0); MEAN CORPUSCULAR HGB 24.4 pg (27.0-31.0); MEAN CORPUSCULAR HGB CONC 29.8 g/dl (33.0-37.0); MEAN PLATELET VOLUME 10.1 fl (9.6-12.3); MONO # 0.8 10*3/uL (0.1-1.0); MONO % 8.8 % (3.0-9.0); NEUT # 5.6 10*3/uL (2.3-7.9); NEUT % 61.9 % (47.0-73.0); PLATELET COUNT AUTOMATED 204 10*3/uL (130-400); RED BLOOD COUNT 3.53 10*6/uL (4.10-5.10); RED CELL DISTRI WIDTH 16.6 % (0-14.5)
[2018-06-02 06:56] LABS: BUN 11 mg/dl (7-24); CHLORIDE 111 mmol/L (98-107); CREATININE 0.87 mg/dL (0.55-1.02); POTASSIUM 4.2 mmol/L (3.5-5.1); SODIUM 144 mmol/L (136-145)
[2018-06-02 08:00] VITALS: BP 145/43
[2018-06-02 12:00] VITALS: BP 153/76
[2018-06-02 16:00] VITALS: BP 145/54
[2018-06-02 20:00] VITALS: BP 178/78
[2018-06-03 01:23] VITALS: BP 145/58
[2018-06-03 06:50] LABS: BASO # 0.1 10*3/uL (0.0-0.1); BASO % 0.7 % (0.0-1.0); EOS # 0.5 10*3/uL (0.0-0.4); HEMATOCRIT 30.1 % (37.0-47.0); HEMOGLOBIN 8.8 g/dl (12.0-16.0); LYMPH # 2.6 10*3/uL (1.3-4.4); LYMPH % 30.2 % (27.0-41.0); MEAN CELL VOLUME 81.8 fl (81.0-99.0); MEAN CORPUSCULAR HGB 23.9 pg (27.0-31.0); MEAN CORPUSCULAR HGB CONC 29.2 g/dl (33.0-37.0); MEAN PLATELET VOLUME 10.4 fl (9.6-12.3); MONO # 0.8 10*3/uL (0.1-1.0); MONO % 9.2 % (3.0-9.0); NEUT # 4.5 10*3/uL (2.3-7.9); NEUT % 53.4 % (47.0-73.0); PLATELET COUNT AUTOMATED 228 10*3/uL (130-400); RED BLOOD COUNT 3.68 10*6/uL (4.10-5.10); RED CELL DISTRI WIDTH 16.5 % (0-14.5); WHITE BLOOD COUNT 8.5 10*3/uL (4.8-10.8)
[2018-06-03 07:09] LABS: BUN 10 mg/dl (7-24); CHLORIDE 111 mmol/L (98-107); CREATININE 0.75 mg/dL (0.55-1.02); POTASSIUM 4.1 mmol/L (3.5-5.1); SODIUM 146 mmol/L (136-145)
[2018-06-03 08:00] VITALS: BP 178/53
[2018-06-03 12:00] VITALS: BP 138/67
[2018-06-03 16:00] VITALS: BP 168/60
[2018-06-03 20:00] VITALS: BP 165/65
[2018-06-04] VITALS: BP 150/75
[2018-06-04 16:00] VITALS: BP 144/64
[2018-06-04 20:00] VITALS: BP 153/55
[2018-06-05] VITALS: BP 145/61
[2018-06-05 08:00] VITALS: BP 156/64
[2018-06-05 12:00] VITALS: BP 138/63
[2018-06-05 16:00] VITALS: BP 154/50
[2018-06-05 20:00] VITALS: BP 111/90
[2018-06-06] VITALS: BP 154/51
[2018-06-06 08:00] VITALS: BP 136/52
[2018-06-06 12:00] VITALS: BP 140/58
[2018-06-06 16:00] VITALS: BP 111/56
[2018-06-06 20:00] VITALS: BP 123/44
[2018-06-07] VITALS: BP 153/52
[2018-06-07 08:00] VITALS: BP 140/51
[2018-06-07 12:00] VITALS: BP 140/62
[2018-06-07] MEDS ORDERED: Humalog SQ (14:46)
[2018-06-07] MEDS ORDERED: EXELON1 EAC1 TD ×2 (14:46→15:31)
[2018-06-07] MEDS ORDERED: XARE20MG PO (15:17)
[2018-06-07] MEDS ORDERED: MULTAQ400 MG PO (15:17)
[2018-06-07] MEDS ORDERED: PROAIR HFA8.5 GM INH (15:17)
[2018-06-07] MEDS ORDERED: EXELON1 EACH T (15:17)
[2018-06-07] MEDS ORDERED: VENTOLIN 02.5 MG/3 M INH (15:17)
[2018-06-07] MEDS ORDERED: INCRUSE ELLI62.5 MCG INH (15:17)
[2018-06-07] MEDS ORDERED: CITALOPRAM20 MG PO (15:17)
[2018-06-07] MEDS ORDERED: FERROUS SULFAT325 MG PO (15:17)
[2018-06-07] MEDS ORDERED: MOM30 M1 PO (15:18)
[2018-06-07] MEDS ORDERED: TYLENOL EXTRA500 M2 PO (15:18)
[2018-06-07] MEDS ORDERED: OS-CAL 500+D31 EACH PO (15:18)
[2018-06-07] MEDS ORDERED: POTASSIUM CHLO10 ME4 PO (15:18)
[2018-06-07] MEDS ORDERED: PRINIVIL10 MG PO (15:18)
[2018-06-07] MEDS ORDERED: BREO ELLIPTA 11 EACH INH (15:18)
[2018-06-07] MEDS ORDERED: ASPIRIN CHEWABL81 MG PO (15:18)
[2018-06-07] MEDS ORDERED: VICTOZA 3-PAK6 MG/ML SQ (15:18)
[2018-06-07] MEDS ORDERED: LIPITOR40 MG PO (15:18)
[2018-06-07] MEDS ORDERED: PULMICORT RESP0.5 MG NEB (15:33)
[2018-06-07 16:00] VITALS: BP 150/50
[2018-08-16] MEDS ORDERED: ATIVAN0.5 MG PO (10:14)
[2018-08-16] MEDS ORDERED: OSCAL/D,OYSTER250 MG PO (10:16)
[2018-08-16] MEDS ORDERED: MELATONIN10 M2 PO (10:18)
[2018-08-16] MEDS ORDERED: ALLERGY10 M1 PO (10:20)
[2018-08-16] MEDS ORDERED: BREO ELLIPTA 11 EACH INH (10:30)
[2018-08-16] MEDS ORDERED: INCRUSE ELLI62.5 MCG INH (10:31)
[2018-08-16] MEDS ORDERED: VENTOLIN 02.5 MG/3 M INH (10:33)
[2018-08-22] MEDS ORDERED: PREDNISONE10 MG PO (11:14)
[2018-08-22] MEDS ORDERED: MUCINEX ER600 MG PO (11:14)
[2018-08-22] MEDS ORDERED: AUGMENTIN 875-875 MG PO (11:14)
== END 2018-06-07 17:00 | disposition home or self-care (01) | DRG 314 ==
LOC: ED 11:42 → 5E 13:19 → EDHOLD 13:19 → ICCU 13:19 → 5E 14:06 → ICCU 14:48 → 5E 05-31 11:44
PROVIDERS: Emergency Medicine; Internal Medicine
DX: I95.89 Other hypotension (principal); G93.41 Metabolic encephalopathy; N17.0 Acute kidney failure with tubular necrosis; N30.00 Acute cystitis without hematuria; E44.1 Mild protein-calorie malnutrition; I50.32 Chronic diastolic (congestive) heart failure; J96.11 Chronic respiratory failure with hypoxia; I13.0 Hypertensive heart and chronic kidney disease with heart failure and stage 1 through stage 4 chronic kidney disease, or unspecified chronic kidney disease; F02.81 Dementia in other diseases classified elsewhere, unspecified severity, with behavioral disturbance; F33.9 Major depressive disorder, recurrent, unspecified; Z82.3 Family history of stroke; E86.0 Dehydration; I25.10 Atherosclerotic heart disease of native coronary artery without angina pectoris; F41.9 Anxiety disorder, unspecified; N18.3 Chronic kidney disease, stage 3 (moderate); J44.9 Chronic obstructive pulmonary disease, unspecified; E11.65 Type 2 diabetes mellitus with hyperglycemia; E11.22 Type 2 diabetes mellitus with diabetic chronic kidney disease; Z96.1 Presence of intraocular lens; E66.01 Morbid (severe) obesity due to excess calories; I48.0 Paroxysmal atrial fibrillation; H54.61 Unqualified visual loss, right eye, normal vision left eye; D64.9 Anemia, unspecified; Z66 Do not resuscitate; Z51.5 Encounter for palliative care; E86.1 Hypovolemia; B96.4 Proteus (mirabilis) (morganii) as the cause of diseases classified elsewhere; D50.9 Iron deficiency anemia, unspecified; R00.1 Bradycardia, unspecified; G47.33 Obstructive sleep apnea (adult) (pediatric); R91.1 Solitary pulmonary nodule; E55.9 Vitamin D deficiency, unspecified; G89.29 Other chronic pain; E83.41 Hypermagnesemia; E87.8 Other disorders of electrolyte and fluid balance, not elsewhere classified; R32 Unspecified urinary incontinence; M19.90 Unspecified osteoarthritis, unspecified site; G30.9 Alzheimer's disease, unspecified; Z99.81 Dependence on supplemental oxygen; Z88.2 Allergy status to sulfonamides; Z88.8 Allergy status to other drugs, medicaments and biological substances; Z79.4 Long term (current) use of insulin; Z79.84 Long term (current) use of oral hypoglycemic drugs; Z79.82 Long term (current) use of aspirin; Z79.899 Other long term (current) drug therapy; Z87.81 Personal history of (healed) traumatic fracture; Z98.41 Cataract extraction status, right eye; Z98.42 Cataract extraction status, left eye; Z90.710 Acquired absence of both cervix and uterus; Z95.5 Presence of coronary angioplasty implant and graft; Z87.891 Personal history of nicotine dependence; Z68.30 Body mass index [BMI] 30.0-30.9, adult; Z80.3 Family history of malignant neoplasm of breast; Z83.79 Family history of other diseases of the digestive system; Z83.3 Family history of diabetes mellitus; Z82.49 Family history of ischemic heart disease and other diseases of the circulatory system

== ENCOUNTER → 2018-06-15 | Outpatient (CLI) | payer MEDICARE, OTHER ==
[~2018-06-15] MED LIST changes: +ALLERGY10 M1 PO; +ARNUITY ELLIP100 MCG INH; +AUGMENTIN 875-875 MG PO; +CITALOPRAM20 MG PO; +EXELON1 EAC1 TD; +EXELON1 EACH T; +FLEET ENEMA 13133 ML R; +HUMALOG100 UNIT/2 SQ; +MELATONIN10 M2 PO; +MUCINEX ER600 MG PO; +NYSTATIN CREAM15 GM T; +OSCAL/D,OYSTER250 MG PO; +PULMICORT RESP0.5 MG NEB
== END | disposition home or self-care (01) ==
LOC: RESCLI 06-14 06:50
DX: G30.9 Alzheimer's disease, unspecified (principal); F02.81 Dementia in other diseases classified elsewhere, unspecified severity, with behavioral disturbance; J44.9 Chronic obstructive pulmonary disease, unspecified; G47.33 Obstructive sleep apnea (adult) (pediatric); I25.10 Atherosclerotic heart disease of native coronary artery without angina pectoris; F41.1 Generalized anxiety disorder; F32.9 Major depressive disorder, single episode, unspecified; I48.0 Paroxysmal atrial fibrillation; I11.0 Hypertensive heart disease with heart failure; I50.32 Chronic diastolic (congestive) heart failure; E55.9 Vitamin D deficiency, unspecified; M19.90 Unspecified osteoarthritis, unspecified site; E66.01 Morbid (severe) obesity due to excess calories; E78.5 Hyperlipidemia, unspecified; E11.65 Type 2 diabetes mellitus with hyperglycemia; D50.9 Iron deficiency anemia, unspecified; R21 Rash and other nonspecific skin eruption; K59.00 Constipation, unspecified; G47.00 Insomnia, unspecified; J30.2 Other seasonal allergic rhinitis; Z99.81 Dependence on supplemental oxygen; Z79.82 Long term (current) use of aspirin; Z79.4 Long term (current) use of insulin; Z79.899 Other long term (current) drug therapy; Z87.891 Personal history of nicotine dependence; Z88.8 Allergy status to other drugs, medicaments and biological substances

== ENCOUNTER → 2018-09-08 | Outpatient (CLI) | payer MEDICARE, OTHER ==
[~2018-09-08] MED LIST changes: +CITALOPRAM10 MG PO; +KLOR-CON M2020 ME1 PO; +LORADAMED10 MG PO; +METFORMIN HYDR500 MG PO; +MILK OF MA400 MG/5 M PO; +OYSTER SHELL C1 EAC3 PO; +PROVENTIL HFA6.7 GM INH; +RISAMINE OINTM113 GM T; +TYLENOL EXTRA500 MG PO
== END | disposition home or self-care (01) ==
LOC: RESCLI 04:10
DX: J44.9 Chronic obstructive pulmonary disease, unspecified (principal); I11.0 Hypertensive heart disease with heart failure; I50.32 Chronic diastolic (congestive) heart failure; E11.9 Type 2 diabetes mellitus without complications; E78.00 Pure hypercholesterolemia, unspecified; I25.10 Atherosclerotic heart disease of native coronary artery without angina pectoris; E55.9 Vitamin D deficiency, unspecified; R26.9 Unspecified abnormalities of gait and mobility; F41.9 Anxiety disorder, unspecified; F03.90 Unspecified dementia, unspecified severity, without behavioral disturbance, psychotic disturbance, mood disturbance, and anxiety; M15.9 Polyosteoarthritis, unspecified; I48.2 Chronic atrial fibrillation; E66.01 Morbid (severe) obesity due to excess calories; K21.9 Gastro-esophageal reflux disease without esophagitis; F33.9 Major depressive disorder, recurrent, unspecified; J30.2 Other seasonal allergic rhinitis; J96.11 Chronic respiratory failure with hypoxia; J96.12 Chronic respiratory failure with hypercapnia; G47.00 Insomnia, unspecified; D50.9 Iron deficiency anemia, unspecified; Z79.899 Other long term (current) drug therapy; Z79.82 Long term (current) use of aspirin; Z87.891 Personal history of nicotine dependence; Z99.81 Dependence on supplemental oxygen; Z88.2 Allergy status to sulfonamides

== ENCOUNTER 2018-10-01 06:23 | Inpatient (IN) | payer OTHER ==
[2018-10-01] VITALS (8 sets, daily range): BP systolic 123–153; BP diastolic 36–60
--- NOTE | ~2018-10-01 | EKG ---
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
--- NOTE | ~2018-10-01 | EKG ---
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: : 1945 Requested By: JAMIE ROMO Order Number: [id number] Reading MD: Lisa Godwin MD Measurements Intervals [place] Rate: 52 P: -57 [place]: 164 QRS: 1 QRSD: 109 T: 8 QT: 526 QTc: 490 Interpretive Statements Sinus or ectopic atrial rhythm Probable anteroseptal infarct, age undetermined Baseline wander in lead(s) V1 Compared to ECG 08/18/2018 11:50:57 Ectopic atrial rhythm now present Myocardial infarct finding now present Sinus rhythm no longer present Ventricular premature complex(es) no longer present Electronically Signed On 10-03-2018 4:50:30 PST by Lisa Godwin MD CM:EKGRPT:ELECTROCARDIOGRAM REPORT [id number] JAMIE VELAZQUEZ DRAFT REPORT JAMIE ROMO DO
--- NOTE | ~2018-10-01 | EKG ---
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
[~2018-10-01 06:23] MED LIST changes: -CITALOPRAM10 MG PO; -KLOR-CON M2020 ME1 PO; -LORADAMED10 MG PO; -METFORMIN HYDR500 MG PO; -MILK OF MA400 MG/5 M PO; -OYSTER SHELL C1 EAC3 PO; -PROVENTIL HFA6.7 GM INH; -RISAMINE OINTM113 GM T; -TYLENOL EXTRA500 MG PO
--- NOTE | 2018-10-01 06:36 | NUR ---
PATIENT AMBULATED TO RESTROOM WITHOUT DIFFICULTY. WILL CONTINUE TO MONITOR.
[2018-10-01 07:00] LABS: BASO # 0.1 10*3/uL (0.0-0.1); BASO % 0.7 % (0.0-1.0); EOS # 0.2 10*3/uL (0.0-0.4); EOS % 1.8 % (1.0-4.0); HEMATOCRIT 33.9 % (37.0-47.0); HEMOGLOBIN 10.3 g/dl (12.0-16.0); LYMPH # 3.6 10*3/uL (1.3-4.4); LYMPH % 32.7 % (27.0-41.0); MEAN CELL VOLUME 85.4 fl (81.0-99.0); MEAN CORPUSCULAR HGB 25.9 pg (27.0-31.0); MEAN CORPUSCULAR HGB CONC 30.4 g/dl (33.0-37.0); MEAN PLATELET VOLUME 9.8 fl (9.6-12.3); MONO % 8.7 % (3.0-9.0); NEUT # 6.1 10*3/uL (2.3-7.9); NEUT % 55.3 % (47.0-73.0); PLATELET COUNT AUTOMATED 243 10*3/uL (130-400); RED BLOOD COUNT 3.97 10*6/uL (4.10-5.10); RED CELL DISTRI WIDTH 18.4 % (0-14.5)
[2018-10-01 07:10] LABS: INTERNATIONAL NORM RATIO 1.2 (2.0-3.5)
[2018-10-01 07:18] LABS: BILIRUBIN NEGATIVE (NEGATIVE); BLOOD NEGATIVE (NEGATIVE); CLARITY CLEAR (CLEAR); COLOR YELLOW (YELLOW); GLUCOSE NEGATIVE (NEGATIVE); KETONE NEGATIVE (NEGATIVE); LEUKO ESTERASE NEGATIVE (NEGATIVE); NITRITE NEGATIVE (NEGATIVE); UROBILINOGEN 0.2 E.U./dl (0.2-1.0)
[2018-10-01] MEDS ORDERED: METFORMIN HYDR500 MG PO (07:23)
[2018-10-01 07:24] LABS: CREATININE 1.11 mg/dL (0.55-1.02); POTASSIUM 4.6 mmol/L (3.5-5.1); TOTAL PROTEIN 6.1 gm/dL (6.4-8.2); TROPONIN I 0.025 ng/ml (<0.045)
[2018-10-01 07:34] LABS: BACTERIA TRACE; EPITHELIAL CELLS 0-2
--- NOTE | 2018-10-01 08:45 | NUR ---
Time: 844 A 73 year old FEMALE admitted to 4E under services of PATRICK NEAL DO. Pt. arrived via stretcher from ER. Chief complaint: PAIN UNDER LEFT BREAST/RIBS RADIATING TO BACK. DANIKA PANDEY
[2018-10-01] MEDS ORDERED: TYLENOL EXTRA500 MG PO (10:36)
[2018-10-01] MEDS ORDERED: CITALOPRAM20 MG PO (10:38)
[2018-10-01] MEDS ORDERED: CITALOPRAM10 MG PO (10:45)
[2018-10-01] MEDS ORDERED: KLOR-CON M2020 ME1 PO (10:51)
[2018-10-01] MEDS ORDERED: RISAMINE OINTM113 GM T (10:55)
[2018-10-01] MEDS ORDERED: MILK OF MA400 MG/5 M PO (10:55)
[2018-10-01] MEDS ORDERED: PROVENTIL HFA6.7 GM INH (10:56)
[2018-10-01] MEDS ORDERED: OYSTER SHELL C1 EAC3 PO (10:57)
[2018-10-01] MEDS ORDERED: LORADAMED10 MG PO (10:57)
--- NOTE | 2018-10-01 10:58 | NUR ---
MED REC UPDATED/CORRECTED USING INFORMATION PROVIDED BY PATIENT'S FAMILY (LAST DISCHARGE MEDS LIST FROM 08/22/18 AND ALSO CLAIMS HISTORY, ALSO CALLED [facility] TO CLARIFY.
--- NOTE | 2018-10-01 21:21 | NUR ---
PATIENT MEDICATED WITH PAIN MEDICATION PER DRS ORDERS FOR COMPLAINTS OF RIGHT SIDED RIB PAIN PER DR ORDERS. PATIENT DENIES OTHER COMPLAINTS AT THIS TIME. RN WILL CONTINUE TO MONITOR.
--- NOTE | 2018-10-01 22:29 | NUR ---
PATIENT STATES THAT EARLIER MEDICATION WAS EFFECTIVE IN REDUCING
[2018-10-02] VITALS: BP 150/47; BP 155/44
--- NOTE | 2018-10-02 01:59 | NUR ---
PRN PO NORCO GIVEN PER PT REQUEST FOR C/O LT SIDE RIB/BACK PAIN. BED IN LOWEST, LOCKED POS, CALL LIGTH WITHIN REACH.
[2018-10-02 07:14] LABS: BASO # 0.1 10*3/uL (0.0-0.1); BASO % 0.8 % (0.0-1.0); EOS # 0.2 10*3/uL (0.0-0.4); EOS % 2.1 % (1.0-4.0); HEMATOCRIT 34.4 % (37.0-47.0); HEMOGLOBIN 10.1 g/dl (12.0-16.0); LYMPH # 3.4 10*3/uL (1.3-4.4); LYMPH % 37.4 % (27.0-41.0); MEAN CELL VOLUME 87.1 fl (81.0-99.0); MEAN CORPUSCULAR HGB 25.6 pg (27.0-31.0); MEAN CORPUSCULAR HGB CONC 29.4 g/dl (33.0-37.0); MEAN PLATELET VOLUME 9.9 fl (9.6-12.3); MONO # 0.8 10*3/uL (0.1-1.0); MONO % 9.1 % (3.0-9.0); NEUT # 4.5 10*3/uL (2.3-7.9); NEUT % 49.9 % (47.0-73.0); PLATELET COUNT AUTOMATED 207 10*3/uL (130-400); RED BLOOD COUNT 3.95 10*6/uL (4.10-5.10); RED CELL DISTRI WIDTH 18.2 % (0-14.5); WHITE BLOOD COUNT 9.1 10*3/uL (4.8-10.8)
[2018-10-02 07:37] LABS: CHLORIDE 108 mmol/L (98-107); POTASSIUM 4.2 mmol/L (3.5-5.1); SODIUM 142 mmol/L (136-145)
[2018-10-02 07:45] LABS: ALKALINE PHOSPHATASE 57 U/L (45-117); BUN 20 mg/dl (7-24); CHOLESTEROL 113 mg/dL (<200); CREATININE 1.07 mg/dL (0.55-1.02); FREE T4 1.01 ng/dl (0.76-1.46); HDL CHOLESTEROL 41 mg/dl (40-60); LDL CHOLESTEROL 55 mg/dL (9-159); PHOSPHOROUS 4.2 mg/dL (2.5-4.9); SGOT/AST 15 IU/L (3-35); SGPT/ALT 16 U/L (12-78); TOTAL PROTEIN 5.5 gm/dL (6.4-8.2); TRIGLYCERIDES 86 mg/dl (<150); VLDL CHOLESTEROL 17 mg/dL (6-40)
[2018-10-02 07:51] LABS: ACT PARTIAL THROMBO TIME 33.6 SECONDS (20.8-31.5); INTERNATIONAL NORM RATIO 1.2 (2.0-3.5)
[2018-10-02 08:00] VITALS: BP 138/82
[2018-10-02 08:09] LABS: VITAMIN D, 25-HYDROXY 47.7 ng/mL (30-100)
--- NOTE | 2018-10-02 09:00 | NUR ---
ASSISTED PATIENT OOB TO RR WITH WALKER. STEADY GAIT WITH ASSISTANCE. WILL CONTINUE TO MONITOR. 02 IN USE VIA 2LNC. NO VOICED COMPLAINTS.
--- NOTE | 2018-10-02 11:28 | NUR ---
BSG 106. NO INSULIN NEEDED PER SLIDING SCALE.
[2018-10-02 12:00] VITALS: BP 131/55
[2018-10-02 16:00] VITALS: BP 155/49
--- NOTE | 2018-10-02 17:27 | NUR ---
PATIENT SITTING UP IN RECLINER CHAIR. 02 IN USE VIA 2LNC. POX 97% VIA 2LNC. DENIES ANY SOB CURRENTLY. WILL CONTINUE TO MONITOR. VSS. CALL LIGHT WITHIN REACH.
[2018-10-02 20:00] VITALS: BP 154/56
[2018-10-03] VITALS: BP 150/47
--- NOTE | 2018-10-03 01:45 | NUR ---
IV ABX HANGING AT THIS TIME, PT REQUESTING COFFEE AND THE PAPER. COFFEE PROVIDED. PT REPORTS NO FURTHER NEEDS. ALL SAFETY MEASURES IN PLACE. CEDRIC MORTON.
[2018-10-03 06:28] LABS: BASO % 0.3 % (0.0-1.0); HEMOGLOBIN 11.2 g/dl (12.0-16.0); LYMPH # 2.1 10*3/uL (1.3-4.4); LYMPH % 17.9 % (27.0-41.0); MEAN CELL VOLUME 84.7 fl (81.0-99.0); MEAN CORPUSCULAR HGB 25.6 pg (27.0-31.0); MEAN CORPUSCULAR HGB CONC 30.3 g/dl (33.0-37.0); MONO # 0.2 10*3/uL (0.1-1.0); MONO % 1.8 % (3.0-9.0); NEUT # 9.4 10*3/uL (2.3-7.9); NEUT % 79.2 % (47.0-73.0); PLATELET COUNT AUTOMATED 227 10*3/uL (130-400); RED BLOOD COUNT 4.37 10*6/uL (4.10-5.10); RED CELL DISTRI WIDTH 17.8 % (0-14.5); WHITE BLOOD COUNT 11.9 10*3/uL (4.8-10.8)
[2018-10-03 06:48] LABS: BUN 23 mg/dl (7-24); CHLORIDE 104 mmol/L (98-107); POTASSIUM 4.2 mmol/L (3.5-5.1); SODIUM 138 mmol/L (136-145)
[2018-10-03 08:00] VITALS: BP 156/64
--- NOTE | 2018-10-03 08:22 | NUR ---
Nursing screen received and chart review completed. Patient admitted with chest pain. At this time patient needs medical attention but should patient decline in ADLs or safety in mobility, consider Occupational Therapy referral. Thank you. Gloria Aleman OTR/L
--- NOTE | 2018-10-03 09:00 | NUR ---
Ux Engineer in to talk to patient. Patient states lives at home with son and daughter in law. There are no steps in the home. Physician: [facility] services: [facility] Patient's level of ADLs: MINIMAL ASSIST Patient has working utilities: all working DME: home oxygen, portable tanks, trillogy, hospital bed, walker Follow-up physician's appointment after d/c: will be made by hospitalist nurse director upon discharge Does patient want to access PORTAL?: no Discharge plan discussed with patient, patient lives at home with son and daughter in law, she uses a walker for ambulation and needs assistance with adls, discussed with patient a short term nursing home for rehab prior to going home and patient declined, she stated she would be going home when able and wanted [facility] to continue. case management will send a referral to [facility] for when patient is medically stable for discharge. FAIZA KIM
[2018-10-03 12:00] VITALS: BP 148/90
[2018-10-03 16:00] VITALS: BP 134/43
[2018-10-03 20:00] VITALS: BP 122/38
[2018-10-04] VITALS: BP 130/64
[2018-10-04 07:45] LABS: BASO % 0.1 % (0.0-1.0); EOS % 0.1 % (1.0-4.0); HEMATOCRIT 34.8 % (37.0-47.0); HEMOGLOBIN 10.4 g/dl (12.0-16.0); LYMPH # 3.1 10*3/uL (1.3-4.4); LYMPH % 18.7 % (27.0-41.0); MEAN CELL VOLUME 85.5 fl (81.0-99.0); MEAN CORPUSCULAR HGB 25.6 pg (27.0-31.0); MEAN CORPUSCULAR HGB CONC 29.9 g/dl (33.0-37.0); MEAN PLATELET VOLUME 10.5 fl (9.6-12.3); MONO # 0.9 10*3/uL (0.1-1.0); MONO % 5.6 % (3.0-9.0); NEUT # 12.3 10*3/uL (2.3-7.9); NEUT % 74.9 % (47.0-73.0); PLATELET COUNT AUTOMATED 235 10*3/uL (130-400); RED BLOOD COUNT 4.07 10*6/uL (4.10-5.10); RED CELL DISTRI WIDTH 17.8 % (0-14.5); WHITE BLOOD COUNT 16.4 10*3/uL (4.8-10.8)
[2018-10-04 08:00] VITALS: BP 148/98
[2018-10-04 08:03] LABS: BUN 25 mg/dl (7-24); CHLORIDE 110 mmol/L (98-107); CREATININE 1.01 mg/dL (0.55-1.02); POTASSIUM 4.3 mmol/L (3.5-5.1); SODIUM 144 mmol/L (136-145)
[2018-10-04 09:00] VITALS: BP 150/84
--- NOTE | 2018-10-04 10:38 | NUR ---
case management visits with patient, patient states she will be going home with her family when able. she has [facility] health and would like them to continue. will notify [facility] home health when patient is medically stable for discharge
--- NOTE | 2018-10-04 10:47 | NUR ---
pT MEDICATED WITH NORCO FOR C/O BACK PAIN. WILL MONITOR.
[2018-10-04 12:00] VITALS: BP 157/64
--- NOTE | 2018-10-04 13:38 | NUR ---
PT STATES uLTRAM EFFECTIVE. pT SATES BACK FEELS BETTER.
[2018-10-04 16:00] VITALS: BP 155/52
--- NOTE | 2018-10-04 16:35 | NUR ---
SPOKE WITH PT'S SON, DEEJAY BY PHONE. STATUS UPDATE GIVEN. HE ASKED FOR A CONSULT WITH DR RUSH. HER STAY SEEMS TO BE MORE RESPIRATORY THAN HEART RELATED. THIS NURSE NOTIFIED SON THAT PT IS RESPONDING WELL TO CURRENT TREATMENT AND IF PRIMARY TEAM FELT A CONSULT WAS NEEDED THAT WOULD HAVE ORDERED ONE. HE STILL ASKED ME TO ASK PRIMARY TEAM. DR OWUSU WAS NOTIFIED.
--- NOTE | 2018-10-04 17:49 | NUR ---
PT NOW HAS A BODY ALARM FOR SAFETY. SLIGHT CONFUSION NOTED. pT ENCOURAGED TO USE CALL LIGHT
[2018-10-04 20:00] VITALS: BP 159/63
--- NOTE | 2018-10-04 21:53 | NUR ---
PT C/O BACK PAIN. PRN MED GIVEN. WILL MONITOR FOR EFFECTIVENESS.
[2018-10-05] VITALS: BP 141/85
[2018-10-05 06:20] LABS: BASO % 0.1 % (0.0-1.0); HEMATOCRIT 34.5 % (37.0-47.0); HEMOGLOBIN 10.5 g/dl (12.0-16.0); LYMPH # 2.1 10*3/uL (1.3-4.4); LYMPH % 15.4 % (27.0-41.0); MEAN CORPUSCULAR HGB 25.9 pg (27.0-31.0); MEAN CORPUSCULAR HGB CONC 30.4 g/dl (33.0-37.0); MEAN PLATELET VOLUME 10.7 fl (9.6-12.3); MONO # 0.4 10*3/uL (0.1-1.0); MONO % 2.6 % (3.0-9.0); NEUT # 10.9 10*3/uL (2.3-7.9); NEUT % 81.2 % (47.0-73.0); PLATELET COUNT AUTOMATED 230 10*3/uL (130-400); RED BLOOD COUNT 4.06 10*6/uL (4.10-5.10); WHITE BLOOD COUNT 13.5 10*3/uL (4.8-10.8)
[2018-10-05 06:46] LABS: BUN 30 mg/dl (7-24); CHLORIDE 106 mmol/L (98-107); CREATININE 0.97 mg/dL (0.55-1.02); POTASSIUM 4.5 mmol/L (3.5-5.1); SODIUM 138 mmol/L (136-145)
[2018-10-05 08:56] VITALS: BP 170/90; BP 172/77
--- NOTE | 2018-10-05 09:00 | NUR ---
case management called [facility], they stated that patient was discontinued from their services in August. spoke to patient again and she couldn't remember what home health company she has, will contact patient's family regarding this
--- NOTE | 2018-10-05 09:00 | NUR ---
PT INCONTINENT OF URINE, ASSISTED TO BATHROOM WITH WHEELED WALKER HOC PROVIDED, AUDIBLE WHEEZES WITH EXCERTION, BP ELEVATED THIS AM. 170/[address] OWUSU NOTIFIED AT THIS TIME. PT HAS NO COMPLAINT OF PAIN OR DISCOMFORT. UP TO CHAIR AT BEDSIDE AT THIS TIME.
--- NOTE | 2018-10-05 09:53 | NUR ---
PT EATING BREAKFAST WITH FAMILY WHEN BUMPED HER IV SITE TO THE LEFT HAND, CATHETER DISLODGED, IV SITE REMOVED AT THIS TIME. NO COMPLAINT OF PAIN. PRESSURE APPLIED TO SITE.
--- NOTE | 2018-10-05 10:15 | NUR ---
DR. OWUSU NOTIFIED OF IV COMING OUT OF SITE, PT FAMILY REQUESTING MEDICATION BE CHANGED TO ORAL MEDICATIONS AT THIS TIME DUE TO POSSIBLE DISCHARGE TODAY. HE STATED HE WILL REVIEW WITH DR. YANES AT THIS TIME.
--- NOTE | 2018-10-05 10:48 | NUR ---
DR. YANES ON UNIT TO SEE PT AT THIS TIME.
[2018-10-05 12:00] VITALS: BP 154/57
[2018-10-05] MEDS ORDERED: PREDNISONE10 MG PO (12:51)
[2018-10-05] MEDS ORDERED: VIBRAMYCIN100 MG PO (12:51)
--- NOTE | 2018-10-05 14:27 | NUR ---
FAMILY NOTIFIED REGARDING DISCHARGE AND WILL BE HERE LATER THIS EVENING TO TRANSPORT PATIENT HOME.
[2018-10-05 16:00] VITALS: BP 146/49
--- NOTE | 2018-10-05 18:37 | NUR ---
Discharge instructions reviewed with patient AND family. Patient receptive and verbalizes understanding. Follow-up care arranged. Written instructions given to patient/family. BELONGINGS SENT WITH FAMILY. PT OFF FLOOR VIA HALIE SANTIAGO
--- NOTE | 2018-10-06 08:07 | NUR ---
PHYSICAL THERAPY Nursing screen received. PAtient discharged. Thank you. Ayanna Overton,PT
== END 2018-10-05 18:37 | disposition home or self-care (01) | DRG 205 ==
LOC: ED 06:23 → 4E 07:51
PROVIDERS: Emergency Medicine; Internal Medicine; ADMIT Internal Medicine
PROC: 5A09357 Assistance with Respiratory Ventilation, Less than 24 Consecutive Hours, Continuous Positive Airway Pressure (ICD-10-PCS; principal; 2018-10-05)
DX: M94.0 Chondrocostal junction syndrome [Tietze] (principal); N17.0 Acute kidney failure with tubular necrosis; J18.9 Pneumonia, unspecified organism; I50.32 Chronic diastolic (congestive) heart failure; J96.11 Chronic respiratory failure with hypoxia; D68.9 Coagulation defect, unspecified; J44.0 Chronic obstructive pulmonary disease with (acute) lower respiratory infection; E44.0 Moderate protein-calorie malnutrition; J44.1 Chronic obstructive pulmonary disease with (acute) exacerbation; G47.33 Obstructive sleep apnea (adult) (pediatric); I25.119 Atherosclerotic heart disease of native coronary artery with unspecified angina pectoris; G30.9 Alzheimer's disease, unspecified; F02.80 Dementia in other diseases classified elsewhere, unspecified severity, without behavioral disturbance, psychotic disturbance, mood disturbance, and anxiety; F41.9 Anxiety disorder, unspecified; F32.9 Major depressive disorder, single episode, unspecified; R32 Unspecified urinary incontinence; E55.9 Vitamin D deficiency, unspecified; E61.1 Iron deficiency; I11.0 Hypertensive heart disease with heart failure; I48.0 Paroxysmal atrial fibrillation; Z66 Do not resuscitate; Z51.5 Encounter for palliative care; K21.9 Gastro-esophageal reflux disease without esophagitis; D64.9 Anemia, unspecified; E87.8 Other disorders of electrolyte and fluid balance, not elsewhere classified; M19.90 Unspecified osteoarthritis, unspecified site; R91.1 Solitary pulmonary nodule; Z96.1 Presence of intraocular lens; E11.9 Type 2 diabetes mellitus without complications; H54.61 Unqualified visual loss, right eye, normal vision left eye; G89.29 Other chronic pain; R00.1 Bradycardia, unspecified; Z99.81 Dependence on supplemental oxygen; Z68.30 Body mass index [BMI] 30.0-30.9, adult; Z79.4 Long term (current) use of insulin; Z95.5 Presence of coronary angioplasty implant and graft; Z87.440 Personal history of urinary (tract) infections; Z88.8 Allergy status to other drugs, medicaments and biological substances; Z88.2 Allergy status to sulfonamides; Z87.01 Personal history of pneumonia (recurrent); Z98.49 Cataract extraction status, unspecified eye; Z90.710 Acquired absence of both cervix and uterus; Z87.891 Personal history of nicotine dependence; Z82.49 Family history of ischemic heart disease and other diseases of the circulatory system; Z83.79 Family history of other diseases of the digestive system; Z83.3 Family history of diabetes mellitus; Z80.3 Family history of malignant neoplasm of breast; Z82.3 Family history of stroke; Z79.82 Long term (current) use of aspirin; Z79.899 Other long term (current) drug therapy